=== PATIENT | female | born 1950 | race Caucasian/White ===

== ENCOUNTER → 2017-01-21 | Outpatient (CLI) | payer MEDICARE ==
[2017-01-21 13:45] LABS: Blood Urea Nitrogen 12 mg/dL (7-17); Non-African American GFR(MDRD) >60 (>60 ml/min/1.73 sqM)
--- NOTE | 2017-01-21 14:56 | CT ---
EXAMINATION TYPE: CT abdomen w con DATE OF EXAM: 01/21/2017 2:35 PM COMPARISON: NONE HISTORY: 66-year-old female neoplasm of kidney TECHNIQUE: Contiguous axial scanning of the abdomen following administration of 100 ml Omnipaque 300 IV contrast. Delayed images through the kidneys and coronal/sagittal reconstructions performed. Slow hand injection was performed due to small gauge IV. CT DLP: 970 mGycm Automated exposure control for dose reduction was used. FINDINGS: The heart is normal size without pericardial effusion. There is a moderate-sized hilar hernia. Minima l groundglass changes peripheral right middle lobe probably some interstitial scarring. No pleural ef fusion. No focal liver lesion. The bile duct is dilated up to 1.3 cm, coronal image 36 which shows normal dis can tapering. Additional mild intrahepatic biliary ductal dilatation is noted. Cholecystectomy clips. Adrenal glands, spleen with hilar splenule, and pancreas show no gross abnormality. There is a 1.6 cm hypodense lesion anterior midpole right kidney that shows attenuation of a round 11 -14 Hounsfield units on both the portal venous phase and delayed kidney images Of the visualized upper abdomen, there is scattered mesenteric lymph nodes. The majority are small. S ome are slightly prominent measuring up to 6 mm and are nonspecific, likely reactive/post inflammator y. No dilated small bowel, free fluid, or free air. There is moderate to large stool burden without олег colonic inflammatory change. Bones: Multilevel advanced degenerative changes throughout the lumbar spine. Hypertrophic facet arthr opathy is present with grade 2 retrolisthesis at L1-L2, grade 1 retrolisthesis at L2-L3, grade 1 ante rolisthesis at L4-L5. Additional Baastrup's disease. IMPRESSION: 1. THERE IS A SOLITARY LESION MEASURING 1.6 CM WITHIN THE ANTERIOR MID POLE RIGHT KIDNEY. THIS SHOWS NO SIGNIFICANT CHANGE IN DENSITY BETWEEN THE TWO POSTCONTRAST SERIES WITH A TOTAL ATTENUATION OF 11-1 4 HOUNSFIELD UNITS. FINDINGS ARE MOST COMPATIBLE WITH A SIMPLE CYST. CORRELATE TO CONFIRM THAT THIS C ORRESPONDS TO THE QUESTIONED KIDNEY LESION. 2. MODERATE-SIZED HIATAL HERNIA. 3. ADVANCED DEGENERATIVE CHANGES IN THE LUMBAR SPINE.
== END | disposition home or self-care (01) ==
LOC: RADCTMAIN 12:29
PROVIDERS: ATTEND Family Medicine
DX: N28.9 Disorder of kidney and ureter, unspecified (principal); K44.9 Diaphragmatic hernia without obstruction or gangrene
CPT/HCPCS: 82565; 84520; 74160; 36415; Q9967

== ENCOUNTER → 2017-05-28 | Outpatient (CLI) | payer MEDICARE ==
--- NOTE | 2017-05-28 12:43 | CONS ---
CONSULTATION DATE OF SERVICE: 05/28/2017 A 67-year-old lady who has been evaluated in the [facility] for obstructive sleep apnea-hypopnea syndrome. HISTORY OF PRESENT ILLNESS/SLEEP-WAKE EVALUATION: Patient had been diagnosed with obstructive sleep apnea about 20 years ago. Since that time, she is on treatment with CPAP. I saw this lady the last time in 2008. At that time, she was on CPAP with a pressure of 8 cm of water. She changed her weight down for the years. At the present time, she is trying to continue to use her CPAP but has multiple awakenings from sleep at the present time, even if she is using CPAP and she again developed sleepiness. [place] Sleepiness Scale increased to 12. SLEEP SCHEDULE: Her sleep schedule sometimes irregular, but generally it is on weekdays from 10 pm to 6 am and on the weekend from 11 pm to 6 - 7 am. She does have problem with falling asleep. She has TV set in bedroom. Sleeps on the side and back position. Wakes up from sleep 2 times with nocturia. In the morning, she wakes up tired, has difficulties to pay attention. Worries about her sleep. Has problem with memory, concentration, irritability and anxiety. PAST MEDICAL HISTORY: Positive for depression, acid reflux, swelling of the legs. PAST SURGICAL HISTORY: Cholecystectomy, surgery for broken wrist, UPPP, breast biopsy x2, tonsillectomy in childhood. MEDICATIONS: Celexa, [place], Lasix, omeprazole, calcium supplement, multivitamins. REVIEW OF SYSTEMS: Multiple awakenings from sleep, sleepiness during the day, as well as episodes of swelling of the legs. SOCIAL HISTORY: Negative for smoking or using alcohol. FAMILY HISTORY: Hypertension, angina, heart problems, arthritis, sinus problems, sleep apnea, headaches, mental illness, diabetes, acid reflux. PHYSICAL EXAM: A 67-year-old lady without distress. BP 149/76, HR 58, RR 16, height 5, 2, weight 221, BMI of 40.4, neck 14.5 inches in circumference, temperature 92.8. Oxygen saturation at room air 95%. OROPHARYNX: No uvula, extremely low position of soft palate, wide pillars. ABDOMEN: Obese. Neck Supple, no JVD. Thyroid is not palpable. LUNGS Clear to percussion and to auscultation. Good air exchange. No wheezing or rhonchi. HEART S1, S2 regular. No murmurs, gallops, or rubs. EXTREMITIES No clubbing or cyanosis. 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 Cranial nerves 2 to 7 intact. There is no fasciculation or atrophy. noted. No focal deficits observed. IMPRESSION: 1. Obstructive sleep apnea-hypopnea syndrome diagnosed about 20 years ago. Last diagnostic sleep study at that time. Patient continued to use her CPAP equipment, but even while using CPAP wakes up from sleep and has sleepiness during the day. [place] Sleepiness Scale increased to 12. Low position of soft palate. 2. Obesity, body mass index 40.4. 3. Increasing blood pressure in the office today. 4. Depression. 5. Acid reflux. 6. History of periodic limb movements by results of previous sleep study. 7. Status post UPPP. 8. Status post tonsillectomy. 9. History of sinusitis. 10.History of headaches. 11.Episodes of swelling of legs. PLAN: 1. The patient will have treatment with positive air pressure equipment and should use it every night for the whole night. 2. Losing weight. 3. Sleep hygiene with regular time in bed for at least 8 hours. 4. No driving if feeling any sleepiness. Patient is aware about civil and criminal liability for unsafe driving. 5. I will see the patient for follow up visit to explain the results of the test, recommendations, check compliance with treatment and make any necessary adjustment related to mask fitting, pressure and humidification. Thank you very much for referring this patient for evaluation. Sincerely, Jose Hoffmann MD, PhD, FAASM Diplomat of [place] [employer] [employer] Cash Surrender Calculator of [facility] [place] MMODL / MAIK: [id number] /
== END | disposition home or self-care (01) ==
LOC: SLEEP 10:52
PROVIDERS: ATTEND Internal Medicine
DX: G47.33 Obstructive sleep apnea (adult) (pediatric) (principal); E66.9 Obesity, unspecified; F32.9 Major depressive disorder, single episode, unspecified; K21.9 Gastro-esophageal reflux disease without esophagitis; Z68.41 Body mass index [BMI] 40.0-44.9, adult
CPT/HCPCS: 99211

== ENCOUNTER → 2017-12-03 | Outpatient (CLI) | payer MEDICARE ==
--- NOTE | 2017-12-03 15:04 | SFUN ---
SLEEP STUDY FOLLOW UP NOTE DATE OF SERVICE: 12/03/2017 A 67-year-old lady who has been followed in the Sleep Center for treatment of severe obstructive sleep apnea-hypopnea syndrome. Recently patient had diagnostic sleep study and CPAP titration and I discussed results of sleep studies with patient in details. Diagnostic sleep study showed severe sleep apnea. Subsequently, patient was started on treatment with CPAP. I checked patient's CPAP unit. Usage is 100% of the time, more than 4 hours, average usage is 7.1 hours. CPAP pressure 10 cm of water. Leak is 28 L/minute. Apnea-hypopnea index 7.5, practically not any abnormal central apnea events. The [place] Sleepiness Scale today is 9. MEDICATIONS: Celexa, [place], Lasix, omeprazole, calcium supplement, vitamin D, other vitamin supplements. PHYSICAL EXAM: lady without distress. BP 152/72, HR 62, RR 16, weight 207, she lost about 14 pounds since the sleep study done, temperature 99.4, oxygen saturation on room air 96%. OROPHARYNX: Extremely low position of soft palate. ABDOMEN: Slightly obese. Neck Supple, no JVD. Thyroid is not palpable. LUNGS Clear to percussion and to auscultation. Good air exchange. No wheezing or rhonchi. HEART S1, S2 regular. No murmurs, gallops, or rubs. EXTREMITIES No clubbing or cyanosis. 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 Cranial nerves 2 to 7 intact. There is no fasciculation or atrophy. noted. No focal deficits observed. IMPRESSION: 1. Severe obstructive sleep apnea-hypopnea syndrome; apnea-hypopnea index 45.4 with oxygen desaturation of 63.8%. Patient demonstrated 100% compliance with treatment, benefitting from treatment. 2. Obesity. 3. Depression. 4. History of acid reflux. 5. Increasing blood pressure in the office. 6. Status post UPPP and tonsillectomy. 7. History of sinusitis. 8. Episodes of swelling of the legs. PLAN: 1. Patient will continue to use CPAP equipment every night for the whole night. 2. I will increase pressure to 11 cm of water. 3. Continue losing weight. 4. Sleep hygiene with regular time in bed for at least 8 hours. 5. No driving if feeling any sleepiness. Thank you very much for allowing me to participate in the management of your patient. Sincerely, Jose Hoffmann MD, PhD, FAASM Diplomat of [place] [employer] [place] [employer] Fiber Picker of [facility] [place] MMSHRUTI / MAIK: [id number] /
== END | disposition home or self-care (01) ==
LOC: SLEEP 13:04
PROVIDERS: ATTEND Internal Medicine
DX: G47.33 Obstructive sleep apnea (adult) (pediatric) (principal); E66.9 Obesity, unspecified; I10 Essential (primary) hypertension; R22.43 Localized swelling, mass and lump, lower limb, bilateral; F32.9 Major depressive disorder, single episode, unspecified; Z99.89 Dependence on other enabling machines and devices; Z79.899 Other long term (current) drug therapy; Z79.891 Long term (current) use of opiate analgesic; Z87.19 Personal history of other diseases of the digestive system; Z98.890 Other specified postprocedural states; Z87.09 Personal history of other diseases of the respiratory system

== ENCOUNTER → 2018-02-02 | Outpatient (CLI) | payer MEDICARE ==
--- NOTE | 2018-02-02 14:52 | BD ---
EXAMINATION TYPE: Axial Bone Density DATE OF EXAM: 02/02/2018 COMPARISON: NONE CLINICAL HISTORY: Height: 5 FT 1 1/4 IN Weight: 209 FRAX RISK QUESTIONS: History of Fracture in Adulthood: YES RISK FACTORS HISTORY OF: History of Wrist Fracture: LT WRIST When: 10-12 YEARS AGO Surgery to Spine/Hip(right/left)/Wrist (right/left): LT WRIST When: 10-12 YEARS AGO Active: MODERATELY Postmenopausal woman: AGE 53 Lost more than 2 inches in height since high school: YES MEDICATIONS: Additional Medications: CELEXA, OMEPRAZOLE, NAPROXEN, Additional History: EXAM MEASUREMENTS: Bone mineral densitometry was performed using the [employer] System. Bone mineral density as measured about the Lumbar spine is: ----- L1-L4(G/cm2): 1.291 T Score Values are as follows: ----- L2: 1.4 ----- L3: 0.1 ----- L4: -0.4 ----- L1-L4: 0.9 Bone mineral density has: INCREASED 0.8 % since study of: 2001 Bone mineral density about the R hip (g/cm2): 0.762 Bone mineral density about the L hip (g/cm2): 0.780 T Score values are as follows: -----R Neck: -2.0 -----L Neck: -1.9 -----R Total: -1.6 -----L Total: -1.6 Bone mineral density has: DECREASED -11.9 % since study of: 2001 IMPRESSION: Osteopenia (T Score between -2.5 and -1). There is slightly increased risk of fracture and the patient may be considered for treatment. Re-Screen 2-5 years. NOTE: T-SCORE=SD OF THE YOUNG ADULT MEAN.
--- NOTE | 2018-02-03 13:47 | MM ---
Reason for exam: screening (asymptomatic). Last mammogram was performed 1 year and 8 months ago. History: Patient is postmenopausal. Benign excisional biopsy of the left breast. Physical Findings: A clinical breast exam by your physician is recommended on an annual basis and results should be correlated with mammographic findings. MG 3D Screening Mammo W/Cad Bilateral CC and MLO view(s) were taken. Prior study comparison: June 18, 2016, bilateral MG 3d screening mammo w/cad. April 14, 2013, bilateral digital screening mammo w/CAD. The breast tissue is heterogeneously dense. This may lower the sensitivity of mammography. No significant changes when compared with prior studies. ASSESSMENT: Benign, BI-RAD 2 RECOMMENDATION: Routine screening mammogram of both breasts in 1 year.
== END | disposition home or self-care (01) ==
LOC: RADBDWWP 07:55
PROVIDERS: ATTEND Family Medicine
DX: M85.80 Other specified disorders of bone density and structure, unspecified site (principal)
CPT/HCPCS: 77063; 77067; 77080

== ENCOUNTER 2018-04-15 09:50 | Day surgery (SDC) | payer MEDICARE ==
[2018-04-12 14:50] VITALS: BMI 36.6
[~2018-04-15 09:50] MED LIST: LACTATED RINGERS 1,000 ML IV SCH
[2018-04-15 11:29] VITALS: TEMP 99.2
[2018-04-15] MEDS ORDERED: LIDOCAINE 1% 20 ML VIAL (10MG/ML) FOR IV START INTRADERMA ONE (11:39)
[2018-04-15] MEDS ORDERED: LIDOCAINE 1% INJ 10MG/ML (20 ML MDV) ONE (12:09)
[2018-04-15] MEDS ORDERED: PROPOFOL 10 MG/ML 20 ML VIAL IV ONE (12:09)
--- NOTE | 2018-04-15 12:34 | P.PCN ---
Date of Procedure: 04/15/18 Procedure(s) Performed: Brief history: Patient is a pleasant 68-year-old white female, scheduled for an elective upper endoscopy as well as colonoscopy as a part of evaluation of surveillance of Sosa's esophagus and history of colon polyps. Procedure performed: Esophagogastroduodenoscopy with biopsy Colonoscopy Preoperative diagnosis: GERD//Sosa's esophagus history of colon polyps [place] [facility] [place]: After informed consent was obtained from the patient was brought into the endoscopy unit and IV sedation was administered by anesthesia under continuous monitoring. Initially upper endoscopy was done. The Olympus GF 160 video endoscope was inserted inserted into the mouth and esophagus intubated without any difficulty and was gradually advanced into the stomach and duodenum and carefully examined. The bulb and second part of the duodenum appeared normal. The scope was then withdrawn into the stomach adequately insufflated with air and upon careful examination the antrum and body, cardia and fundus appeared normal. The scope was then withdrawn into the esophagus. Moderate size hiatal hernia noted. The GE junction was located at 35 cm to the incisors. There was long segment of Sosa's esophagus extending from 32-35 cm from incisors and multiple biopsies were done from this area. Rest of the esophagus appeared normal. Patient tolerated the procedure well. At this time the patient continued to remain sedation. Initial digital rectal examination was normal. Olympus CF 160 video colonoscope was then inserted into the rectum and gradually advanced to the cecum without any difficulty. Careful examination was performed as the scope was gradually being withdrawn. The prep was excellent. The cecum, ascending colon, transverse colon, descending colon, sigmoid colon and rectum appeared normal. Retroflexion was performed in the rectum and no lesions were noted. Patient tolerated the procedure well. Impression: 1. Upper endoscopy revealed moderate size hiatal hernia and Sosa's esophagus 2. Colonoscopy was within normal limits with no evidence of colitis or colorectal neoplasia. Recommendations: Findings of this examination were discussed with the patient as well as a family. She was advised to follow with the biopsy results. If the biopsy shows a no evidence of dysplasia, she can have a repeat upper endoscopy in 2 years. She can have a repeat colonoscopy in 5 years.
[2018-04-15 12:57] VITALS: BP 184/79
[2018-04-15 13:19] VITALS: PULSE 45; RESP 14
== END 2018-04-15 13:43 | disposition home or self-care (01) ==
LOC: ORWHC2ENDO 09:50
PROVIDERS: ATTEND Internal Medicine Gastroenterology
DX: Z12.11 Encounter for screening for malignant neoplasm of colon (principal); K22.70 Barrett's esophagus without dysplasia; K21.9 Gastro-esophageal reflux disease without esophagitis; K44.9 Diaphragmatic hernia without obstruction or gangrene; G47.33 Obstructive sleep apnea (adult) (pediatric); Z79.82 Long term (current) use of aspirin; Z79.891 Long term (current) use of opiate analgesic; Z79.899 Other long term (current) drug therapy; Z79.1 Long term (current) use of non-steroidal anti-inflammatories (NSAID); Z86.010 Personal history of colon polyps
CPT/HCPCS: 88305; 43239; J2001; J2704; G0105; 45378

== ENCOUNTER → 2018-04-20 | Outpatient (CLI) | payer MEDICARE ==
--- NOTE | 2018-04-20 08:21 | MR ---
EXAMINATION TYPE: MR lumbar spine wo con DATE OF EXAM: 04/20/2018 COMPARISON: CT abdomen January 21, 2017. HISTORY: Low back pain per order. Back pain for 2 months into left lower extremity per patient. TECHNIQUE: Multiplanar, multisequence imaging of the lumbar spine is performed without IV contrast. FINDINGS: Sagittal images of the lumbar spine show vertebral body heights to remain satisfactory. The re is subtle grade 1 retrolisthesis of T12 on L1 with more prominent retrolisthesis of L1 on L2 and L 2 on L3. There is subtle retrolisthesis L3 on L4 and anterolisthesis L4 on L5. Multilevel disc desicc ation is present. There is moderate disc space narrowing T12-L1 level. There is advanced disc space narrowing L1-L2 and L2-L3 levels. There is mild disk space narrowing at L5-S1 level. Vacuum disc phen omenon L5-S1 level is present. The conus medullaris is normal in position and signal ending at mid L1 level. There is heterogeneous Modic type III degenerative change centered anterior T12-L1 level with diminished T1 and T2 signal. Mild to moderate multilevel anterior spurring upper lumbar spine is red emonstrated. Axial images at the T12-L1 level shows mild broad disc bulge with right foraminal/lateral disc protru awilda component on axial image 28. There is effacement of the anterolateral thecal sac. There is mild right-sided neural foraminal narrowing. Left-sided neural foramen is patent. Axial images at the L1-L2 level show spondylolisthesis and broad disc bulge mildly effacing anterior thecal sac. Bilateral neural foramina show mild to moderate narrowing. Axial images at L2-L3 level show spondylolisthesis and broad disc bulge effacing anterior thecal sac. There is mild facet arthropathy that is present bilaterally. Moderate to severe bilateral neural for aminal narrowing is present at this level. Axial images at L3-L4 level show mild to moderate facet degenerative changes bilaterally. Spinal milton l is preserved. Bilateral neural foramina show mild narrowing. Axial images at L4-L5 level show spondylolisthesis and moderate bilateral facet arthropathy, spinal c anal is preserved. Bilateral neural foramina are patent. Axial images at L5-S1 level show moderate to advanced facet degenerative changes bilaterally. Spinal canal is preserved. Bilateral neural foramina are patent. There is 1.2 cm round T2 hyperintense lesion anteriorly right kidney axial image 44 consistent with s imple cyst redemonstrated. IMPRESSION: Multilevel spondylolisthesis and degenerative change most prominent in the upper lumbar l evels as detailed above.
== END | disposition home or self-care (01) ==
LOC: RADMRIMAIN 06:17
PROVIDERS: ATTEND Physician Assistant
DX: M43.16 Spondylolisthesis, lumbar region (principal); M47.816 Spondylosis without myelopathy or radiculopathy, lumbar region
CPT/HCPCS: 72148

== ENCOUNTER → 2019-02-10 | Outpatient (CLI) | payer MEDICARE ==
--- NOTE | 2019-02-10 15:54 | SFUN ---
SLEEP CENTER FOLLOW UP NOTE DATE OF SERVICE: 02/10/2019 A 68-year-old lady who has been followed in the Sleep Center for treatment of obstructive sleep apnea-hypopnea syndrome. Patient successfully continued to use her CPAP equipment every night for the whole night. Does not have any significant complaint or sleep problem. For the last year patient was started on treatment additionally with lisinopril for the hypertension. Patient increased her weight from about 207 pounds during the last visit to 244 pounds during this visit. I checked her CPAP unit, CPAP pressure at 11 cm of water. Usage is 100% of nights, more than 4 hours. Average usage is 6.9 hours, which is normal amount. Leak 20 L/minute, which is borderline. Apnea-hypopnea index 7.1, which is minimally increased above the standards. Because patient has severe obstructive sleep apnea during diagnostic sleep study, apnea-hypopnea index was 45.4. [place] Sleepiness Scale today is 10, which is borderline. MEDICATIONS: Lisinopril, Celexa, [place], Lasix, omeprazole, vitamin D, calcium supplement, vitamin supplement. PHYSICAL EXAM: Patient in no distress. BP 153/76, HR 64, RR 16, height 5 foot 2 inches, weight 244 pounds, temperature 98.7, oxygen saturation at room air 94%. OROPHARYNX: Extremely low position of soft palate. Mallampati 4. ABDOMEN: Obese. Neck Supple, no JVD. Thyroid is not palpable. LUNGS Clear to percussion and to auscultation. Good air exchange. No wheezing or rhonchi. HEART S1, S2 regular. No murmurs, gallops, or rubs. EXTREMITIES No clubbing or cyanosis. 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 Cranial nerves 2 to 7 intact. There is no fasciculation or atrophy. noted. No focal deficits observed. IMPRESSION: 1. Severe obstructive sleep apnea-hypopnea syndrome; apnea-hypopnea index 45.4 with oxygen desaturation to 63.8%. Patient demonstrated 100% compliance with treatment, benefitting from treatment. 2. Patient increased her weight 37 pounds since previous visit. Apnea-hypopnea index from the machine 7.1. 3. Obesity. 4. Depression. 5. History of acid reflux. 6. Hypertension. 7. Status post UPP and tonsillectomy. 8. History of sinusitis. 9. Episodes of swelling of legs. PLAN: 1. I will increase pressure in the machine. I will put machine in automatic regimen with the highest pressure of 14 cm of water. 2. Patient will continue to use CPAP equipment every night. 3. Losing weight. 4. Sleep hygiene with regular time in bed for at least 8 hours. 5. Low-sodium diet. 6. No driving if feeling sleepiness. 7. Prescription for all necessary CPAP supplies including mask, tube, filters. Thank you very much for allowing me to participate in the management of your patient. Sincerely, Jose Hoffmann MD, PhD, FAASM Diplomat of [place] [employer] [place] [employer] Map Mounter of [facility] [place] MMODL / IJN: [id number] /
== END | disposition home or self-care (01) ==
LOC: SLEEP 14:30
PROVIDERS: ATTEND Internal Medicine
DX: G47.33 Obstructive sleep apnea (adult) (pediatric) (principal); I10 Essential (primary) hypertension; E66.9 Obesity, unspecified; F32.9 Major depressive disorder, single episode, unspecified; K21.9 Gastro-esophageal reflux disease without esophagitis; M79.89 Other specified soft tissue disorders; Z98.890 Other specified postprocedural states; Z90.89 Acquired absence of other organs; Z99.89 Dependence on other enabling machines and devices; Z87.09 Personal history of other diseases of the respiratory system; Z79.899 Other long term (current) drug therapy

== ENCOUNTER → 2019-03-10 | Outpatient (CLI) | payer MEDICARE ==
--- NOTE | 2019-03-14 09:18 | MM ---
Reason for exam: screening (asymptomatic). Last mammogram was performed 1 year and 1 month ago. History: Patient is postmenopausal. Benign excisional biopsy of the left breast. Physical Findings: A clinical breast exam by your physician is recommended on an annual basis and results should be correlated with mammographic findings. MG 3D Screening Mammo W/Cad Bilateral CC and MLO view(s) were taken. Prior study comparison: February 02, 2018, bilateral MG 3d screening mammo w/cad. June 18, 2016, bilateral MG 3d screening mammo w/cad. The breast tissue is heterogeneously dense. This may lower the sensitivity of mammography. No significant changes when compared with prior studies. ASSESSMENT: Negative, BI-RAD 1 RECOMMENDATION: Routine screening mammogram of both breasts in 1 year.
== END | disposition home or self-care (01) ==
LOC: RADMAMWWP 09:02
PROVIDERS: ATTEND Family Medicine
DX: Z12.31 Encounter for screening mammogram for malignant neoplasm of breast (principal)
CPT/HCPCS: 77063; 77067

== ENCOUNTER → 2019-08-02 | Outpatient (CLI) | payer MEDICARE ==
[2019-08-02 09:35] LABS: ALT 16 U/L (9-52); AST 23 U/L (14-36); African American GFR (CKD) >90 (>60 ml/min/1.73 sqM); Albumin 4.2 g/dL (3.5-5.0); Alkaline Phosphatase 77 U/L (38-126); Anion Gap 8 mmol/L; Blood Urea Nitrogen 15 mg/dL (7-17); Calcium 9.7 mg/dL (8.4-10.2); Carbon Dioxide 27 mmol/L (22-30); Chloride 99 mmol/L (98-107); Glucose 105 mg/dL (74-99); Non-African American GFR(CKD) >90 (>60 ml/min/1.73 sqM); Sodium 134 mmol/L (137-145); Total Bilirubin 0.4 mg/dL (0.2-1.3); Total Protein 7.1 g/dL (6.3-8.2)
[2019-08-02 09:40] LABS: HCT 35.7 % (34.0-46.0); HGB 12.2 gm/dL (11.4-16.0); MCH 28.3 pg (25.0-35.0); MCV 83.3 fL (80.0-100.0); Mean Platelet Volume 5.8; Platelet Count 318 k/uL (150-450); RBC 4.29 m/uL (3.80-5.40); RDW 13.6 % (11.5-15.5); WBC 4.9 k/uL (3.8-10.6)
[2019-08-02 10:14] LABS: Lymphocytes # (M) 1.47 k/uL (1.0-4.8); Monocytes # (M) 0.25 k/uL (0-1.0); Neutrophils # (M) 3.19 k/uL (1.3-7.7); Neutrophils % (M) 65 %; Nucleated Red Blood Cells 0 /100 WBC (0-0); Total Cells Counted 100
--- NOTE | 2019-08-04 08:42 | MR ---
EXAMINATION TYPE: MR MRCP DATE OF EXAM: 08/02/2019 COMPARISON: Outside abdominal ultrasound July 07, 2019. CT abdomen January 21, 2017. Older abdominal u ltrasound June 19, 2011 HISTORY: Common Bile Duct dilation, abnormal outside ultrasound Standard multiplanar, multisequence MRI departmental protocol Multiplanar, multisequence images of the abdomen were acquired. Thin and thick slice MRCP performed o n MRI scanner. FINDINGS: Liver/gallbladder/pancreas/biliary system: Pancreas is normal in size. Pancreatic duct is seen but no t suspiciously dilated. No surrounding inflammatory change or fluid collection. Gallbladder is surgic ally absent. Liver is normal in size, mild diffuse signal dropout on in and out of phase images consi stent with mild diffuse fatty infiltration corresponds to slightly hyperechoic appearance of liver on ultrasound. There is confirmation of mild to moderate central intrahepatic and extra hepatic biliary dilatation measuring up to 16 mm image 42 series 701 near krissy hepatis with persistent dilatation b ut slight tapering towards the ampulla where there is then abrupt tapering noted seen best image 15 s eries 201. No obstructing stone or obvious ampullary mass identified on MRI. There is definitive prog ression of biliary dilatation from 2011 ultrasound, degree of dilatation is not significantly progres sed from the 2017 CT in retrospect. Other: There is stable moderate size hiatal hernia with some twisting redemonstrated. Spleen and both adrenal glands remain normal in size. Persistent simple appearing 1.2 cm cyst anteriorly upper pole of the right kidney. No suspicious small or large bowel dilatation. Multilevel spurring and slight sc oliotic curvature in the spine. No abdominal ascites or suspicious adenopathy. IMPRESSION: Confirmation of fairly moderate central intrahepatic and extra hepatic biliary dilatation without pancreatic ductal dilatation. No obvious mass or distal CBD stone on MRI. Findings however a re concerning as they are new from 2011 ultrasound and distal CBD stricture or obstructing mass has t o be suspected. Further investigation with ERCP should be considered.
== END | disposition home or self-care (01) ==
LOC: RADMRIMAIN 07:59
PROVIDERS: ATTEND Internal Medicine Gastroenterology
DX: K83.8 Other specified diseases of biliary tract (principal); R93.89 Abnormal findings on diagnostic imaging of other specified body structures
CPT/HCPCS: 74181; 80053; 85025

== ENCOUNTER → 2019-09-05 | Outpatient (CLI) | payer MEDICARE ==
[2019-09-05 12:10] LABS: ALT 45 U/L (4-34); AST 94 U/L (14-36); African American GFR (CKD) >90 (>60 ml/min/1.73 sqM); Albumin 4.1 g/dL (3.5-5.0); Alkaline Phosphatase 92 U/L (38-126); Anion Gap 8 mmol/L; Blood Urea Nitrogen 14 mg/dL (7-17); Calcium 9.7 mg/dL (8.4-10.2); Carbon Dioxide 25 mmol/L (22-30); Chloride 101 mmol/L (98-107); Glucose 90 mg/dL (74-99); Non-African American GFR(CKD) >90 (>60 ml/min/1.73 sqM); Sodium 134 mmol/L (137-145); Total Bilirubin 0.5 mg/dL (0.2-1.3); Total Protein 6.7 g/dL (6.3-8.2)
[2019-09-05 12:12] LABS: Appearance,Urine Clear (Clear); Bilirubin,Urine Negative (Negative); Blood,Urine Negative (Negative); Color,Urine Light Yellow; Glucose,Urine (UA) Negative (Negative); Hyaline Casts,Urine 1 /lpf (0-2); Ketones,Urine Negative (Negative); Leukocyte Esterase,Urine Moderate (Negative); Mucus,Urine Rare /hpf; Nitrite,Urine Negative (Negative); PH, Urine 5.5 (5.0-8.0); Protein,Urine Negative (Negative); RBC,Urine 2 /hpf (0-5); Squamous Epithelial Cell,Urine <1 /hpf (0-4); Urobilinogen,Urine <2.0 mg/dL (<2.0); WBC,Urine 7 /hpf (0-5)
[2019-09-05 12:15] LABS: HCT 35.1 % (34.0-46.0); HGB 11.5 gm/dL (11.4-16.0); MCH 28.5 pg (25.0-35.0); MCHC 32.7 g/dL (31.0-37.0); Mean Platelet Volume 6.6; Platelet Count 311 k/uL (150-450); RBC 4.04 m/uL (3.80-5.40); RDW 14.2 % (11.5-15.5); WBC 4.8 k/uL (3.8-10.6)
[2019-09-05 12:16] LABS: INR 0.9 (<1.2); Partial Thromboplastin Time 22.2 sec (22.0-30.0); Prothrombin Time 9.6 sec (9.0-12.0)
== END | disposition home or self-care (01) ==
LOC: LABPAT 10:36
PROVIDERS: ATTEND Orthopaedic Surgery
DX: Z01.812 Encounter for preprocedural laboratory examination (principal); Z01.818 Encounter for other preprocedural examination; M16.12 Unilateral primary osteoarthritis, left hip; Z79.01 Long term (current) use of anticoagulants
CPT/HCPCS: 36415; 80053; 81001; 85027; 85610; 85730; 87070

== ENCOUNTER 2019-09-13 07:30 | Inpatient (IN) | payer MEDICARE ==
[2019-09-02 13:01] VITALS: BMI 42.0
[~2019-09-13 07:30] MED LIST changes: +ACETAMINOPHEN TAB 500 MG TAB PO ONE; +DEXAMETHASONE SOD PHOSPHATE 10 MG/ML 1 ML VIAL IV ONE; +GABAPENTIN 300 MG CAP PO ONE; +HYDROmorphone 0.5 MG/0.5 ML SYRINGE IVP PRN; -LACTATED RINGERS 1,000 ML IV SCH; +LIDOCAINE 1% 20 ML VIAL (10MG/ML) FOR IV START INTRADERMA PRN; +MELOXICAM 7.5 MG TAB PO ONE; +TRANEXAMIC ACID 1,000 MG in SODIUM CHLORIDE 0.9% 100 ML IVPB ONE; +fentaNYL (PF) 50 MCG/ML 2 ML AMP IV PRN
[2019-09-13] MEDS: ROPIVACAINE 246.25 MG, EPINEPHrine 0.5 MG, KETOROLAC 30 MG, cloNIDine HCL/PF 80 MCG, WA... MISCELLANE ONE ×10 (11:06→11:56)
[2019-09-13] MEDS ORDERED: NALOXONE 0.4 MG/ML 1 ML VIAL IV PRN (11:08)
[2019-09-13] MEDS ORDERED: ONDANSETRON 4 MG/2 ML VIAL IVP PRN (11:08)
[2019-09-13] MEDS ORDERED: HYDROmorphone 0.5 MG/0.5 ML SYRINGE IVP PRN ×3 (11:08)
[2019-09-13] MEDS ORDERED: hydrOXYzine PAMOATE 25 MG CAP PO PRN (11:08)
[2019-09-13] MEDS ORDERED: HYDROcodone/APAP 5-325MG 1 EACH TAB PO PRN (11:08)
[2019-09-13] MEDS ORDERED: MAGNESIUM HYDROXIDE 2,400 MG/10 ML CUP PO PRN (11:08)
[2019-09-13] MEDS: LACTATED RINGERS 1,000 ML IV SCH (11:23)
[2019-09-13] MEDS: ONDANSETRON 4 MG/2 ML VIAL IVP ONE ×2 (11:23→15:07)
[2019-09-13] MEDS ORDERED: SODIUM CHLORIDE 0.9% IRRIG 1,000 ML BTL IRRIGATION ONE (11:24)
[2019-09-13] MEDS ORDERED: ePHEDrine SULFATE/0.9% NACL/PF 50 MG/5 ML SYRINGE IV ONE (11:24)
[2019-09-13] MEDS ORDERED: TRANEXAMIC ACID 1,000 MG/10 ML VIAL ONE (11:24)
[2019-09-13] MEDS ORDERED: fentaNYL (PF) 50 MCG/ML 2 ML AMP ONE (11:24)
[2019-09-13] MEDS ORDERED: PROPOFOL 10 MG/ML 20 ML VIAL IV ONE (11:24)
[2019-09-13] MEDS ORDERED: HEPARIN SODIUM,PORCINE 10,000 UNIT/ML 1 ML VIAL ONE (11:24)
[2019-09-13] MEDS ORDERED: MIDAZOLAM 2 MG/2 ML VIAL ONE (11:24)
[2019-09-13] MEDS ORDERED: SODIUM CHLORIDE 0.9% 100 ML BAG ONE (11:24)
[2019-09-13] MEDS ORDERED: ceFAZolin 3,000 MG in SODIUM CHLORIDE 0.9% IRRIGATIO 3,000 ML IRRIGATION ONE (11:27)
--- NOTE | 2019-09-13 12:49 | FL ---
EXAMINATION TYPE: FL guidance operating room DATE OF EXAM: 09/13/2019 HISTORY: Flouroscopy time 48 seconds of fluoroscopy provided. IMPRESSION: 1. Fluoroscopy time.
--- NOTE | 2019-09-13 12:53 | P.OP ---
Date of Procedure: 09/13/19 Preoperative Diagnosis: Severe osteoarthritis left hip Postoperative Diagnosis: Severe osteoarthritis left hip Procedure(s) Performed: Left total hip arthroplasty with a direct anterior approach Implants: Ferreira and nephew Polarstem size 2 standard Ferreira [employer] Nephew R3, 3 hole acetabular shell, 48 mm Ferreira [employer] Nephew reflection 6.5 mm cancellus screw, 20 mm 2 Ferreira [employer] Nephew R3, XLPE 20 acetabular liner Ferreira & Nephew Oxinium femoral head 32 m, +0 All components were press-fit. The articulation is Oxinium on polyethylene. Anesthesia: spinal Surgeon: Keith Vega Apron Man #1: Yolanda Ram Estimated Blood Loss (ml): 200 (62 mL returned with Cell Saver) Pathology: other (Femoral head) Condition: stable Disposition: PACU Indications for Procedure: After failure of conservative treatment we discussed the surgical and nonsurgical treatment options at length. Patient wishes to proceed with a total hip arthroplasty with a direct anterior approach. Complications specific to this procedure were discussed at length, including but not limited to infection, leg length discrepancy, dislocation, and nerve injury. Patient is aware of all these complications and informed consent was obtained Operative Findings: The operative findings are consistent with severe osteoarthritis of the left hip Description of Procedure: Patient was seen and evaluated in the preoperative area, consent was reviewed, and the surgical site was marked with a skin marker. Patient was then brought to the operating room and given prophylactic antibiotics intravenously. 1 g of Tranexamic acid was also given. A spinal anesthetic was administered by the anesthesia department. The patient was then placed on the Easton table with the bony prominences well-padded. The hip area was then prepped and draped in usual sterile fashion. A universal timeout was then performed, which confirmed the patient's name, surgical site, ALLERGIES, and procedure being performed. Next the incision site was located at 1 cm distal and 1 cm lateral to the anterior superior iliac spine. The skin and subcutaneous tissues were sharply incised. Incision was carefully dissected down to the fascia overlying the tensor fascia jonathan muscle. This fascia was then incised in line with the incision. Next, using blunt finger dissection, the tensor fascia jonathan muscle was dissected off its investing fascia. The muscle was then carefully retracted laterally with a cobra retractor over the lateral neck of the femur. Next, the circumflex vessels were identified and cauterized using the AquaMantis device. The anterior hip capsule was then exposed. The capsule was then opened and an inverted T fashion. Cobra retractors were then placed intracapsularly. The proximal femur was then visu alized. The femoral neck was then osteotomized appropriate level above the lesser trochanter. Small amount of traction was placed with the Easton table. A small wedge of bone was then removed from the remaining femoral head. Next, using a corkscrew femoral head was easily removed from the acetabulum. On gross visual inspection, the femoral head had complete loss of articular cartilage in multip le periarticular osteophytes. Attention was then turned to the acetabulum. the acetabulum was exposed and any remaining labrum was excised. Sequential reaming of the acetabulum was performed using fluoroscopic guidance. When the appropriate size was reached, a trial was then placed. The position and fit of the trial was checked with fluoroscopy. The trial was then removed. Then, using fluoroscopic guidance, the final implant was impacted at 20 of anteversion and 40 of abduction, and fully seated in the acetabulum. 2 screws were then placed in the acetabulum. Again fluoroscopy was used to check position of the screws. Next, the liner was then impacted, with a 20 elevated liner located in the anterior superior quadrant. Component locking was confirmed. Attention was then directed to the femur. With the aid of the Easton table, the femur was externally rotated to approximately 130, extended, and abducted under the opposite leg. A side hook was then placed under the proximal femur, and the side hook elevator was used to elevate the proximal femur. Retractors were then placed. A capsular release was performed, as well as a release of the conjoined tendon, which afforded excellent visualization of the proximal femur. Next, a box osteotome was used to lateralize the proximal femur. A burr bench hand was then used to locate the femoral canal. Sequential broaching was then performed with appropriate size which afforded excellent fixation in the proximal femur. A trial was then placed with appropriate head and neck, and the hip was gently reduced with the aid of the Easton table. Fluoroscopy was then used to check position of the components, as well as to ensure equal leg lengths. The hip was then gently dislocated and the trials were then removed. Final implants were then impacted and the hip was again reduced. Final fluoroscopic x-rays confirmed that the components were in anatomic position, as well as equal leg lengths. The hip was also taken through range of motion, and found to be stable. The hip was then copiously irrigated with antibiotic solution with pulsatile lavage. The hip was then irrigated with Irrisept solution. The soft tissues were then injected with a ropivacaine solution, which consisted of 246.25 mg of ropivacaine, 0.5 mg of epinephrine, 30 mg of Toradol, 80 g of clonidine, and 48.45 mL of sterile water, for a total of 100 mL of fluid injected. A second dose of 1 g of Tranexamic acid was also given. the fascia was then closed with 2-0 strata fix suture. The subcutaneous tissue was closed with 3-0 Vicryl. The subcuticular tissue was closed with 3-0 strata fix suture. The skin was then closed with Dermabond glue and a sterile silver dressing. The patient was then transferred to the recovery room in stable condition. The administrative sales assistant MICHAEL Wagoner was required due to the complexity of surgery, and the need for skilled surgical device sales representative for positioning, draping, exposure, retraction, and closure of the wound.
[2019-09-13] MEDS ORDERED: FAMOTIDINE 20 MG/2 ML VIAL IVP ONE (13:16)
--- NOTE | 2019-09-13 13:22 | XR ---
EXAMINATION TYPE: XR Hip Limited LT DATE OF EXAM: 09/13/2019 CLINICAL HISTORY: Left hip pain and osteoarthritis. TECHNIQUE: Single AP portable view of left hip is obtained immediately postoperatively. COMPARISON: None. FINDINGS: Metallic hardware from left hip arthroplasty is seen and appears satisfactory in alignment and position. There is evidence of recent surgery with subcutaneous gas noted laterally. IMPRESSION: Metallic hardware from left hip arthroplasty is satisfactory in position.
[2019-09-13] MEDS ORDERED: METOCLOPRAMIDE 5 MG/ML 2 ML VIAL IVP ONE (15:13)
[2019-09-13] MEDS: HYDROcodone/APAP 5-325MG 1 EACH TAB PO PRN ×2 (15:54→21:15)
[2019-09-13] MEDS: SODIUM CHLORIDE 0.9% 1,000 ML IV SCH (17:34)
[2019-09-13] MEDS ORDERED: LORazepam 1 MG TAB PO PRN (19:49)
[2019-09-13] MEDS: SENNOSIDES-DOCUSATE SODIUM 1 EACH TAB PO SCH (20:10)
[2019-09-13] MEDS: ASPIRIN 325 MG TAB PO SCH (20:10)
[2019-09-13] MEDS: CITALOPRAM HYDROBROMIDE 20 MG TAB PO SCH (20:10)
[2019-09-13] MEDS: PANTOPRAZOLE 40 MG TABLET PO SCH (20:10)
[2019-09-13] MEDS: CALCIUM CARBONATE 500 MG CHEWABLE PO PRN (21:20)
[2019-09-14] MEDS: SODIUM CHLORIDE 0.9% 1,000 ML IV SCH ×2 (02:41→17:10)
[2019-09-14] MEDS: HYDROcodone/APAP 5-325MG 1 EACH TAB PO PRN ×4 (05:01→20:08)
[2019-09-14 07:29] LABS: HCT 31.9 % (34.0-46.0); HGB 10.3 gm/dL (11.4-16.0); MCH 27.8 pg (25.0-35.0); MCHC 32.4 g/dL (31.0-37.0); MCV 85.7 fL (80.0-100.0); Mean Platelet Volume 6.5; Platelet Count 281 k/uL (150-450); RBC 3.72 m/uL (3.80-5.40); RDW 14.4 % (11.5-15.5); WBC 7.2 k/uL (3.8-10.6)
[2019-09-14] MEDS: PANTOPRAZOLE 40 MG TABLET PO SCH ×2 (08:35→17:10)
[2019-09-14] MEDS: MELOXICAM 7.5 MG TAB PO SCH (08:35)
[2019-09-14] MEDS: ASPIRIN 325 MG TAB PO SCH (08:35)
[2019-09-14 09:02] LABS: Eosinophils # (M) 0.07 k/uL (0-0.7); Lymphocytes # (M) 1.22 k/uL (1.0-4.8); Monocytes # (M) 0.58 k/uL (0-1.0); Neutrophils # (M) 5.33 k/uL (1.3-7.7); Neutrophils % (M) 74 %; Nucleated Red Blood Cells 0 /100 WBC (0-0); Total Cells Counted 100
--- NOTE | 2019-09-14 10:32 | P.PN ---
Subjective Progress Note Date: 09/14/19 This patient is a 69-year-old female that presented to [facility] yesterday. The patient underwent a total left hip arthroplasty with Dr. Vega and 09/13/19. Today's postoperative day #1. The patient is examined bedside. Patient states her pain is currently well-controlled and her left hip. She has had he been up with physical therapy. She is experiencing minimal pain or issue with ambula tion while using a walker. He has not yet had a bowel movement postoperatively, although she denies abdominal pain. She states she is feeling well this morning. She denies chest pain, shortness breath, nausea, vomiting, fevers, chills. Objective - Vital Signs Vital signs: Vital Signs Temp 98.0 F 09/14/19 07:47 Pulse 78 09/14/19 07:47 Resp 18 09/14/19 07:47 BP 120/65 09/14/19 07:47 Pulse Ox 96 09/14/19 07:47 Intake & Output 09/13/19 09/14/19 09/14/19 18:59 06:59 18:59 Intake Total 901 690 Output Total 200 1350 Balance 701 -660 Weight 104 kg Intake: IV 901 Oral 690 Output: Urine 1350 Estimated Blood Loss 200 Other: # Voids 2 - Exam On examination, the patient is sitting up in bed in no apparent distress. She is alert and oriented 3. On inspection of the left hip, there is a clean, dry, intact surgical dressing in place. There is no surrounding erythema, warmth, or drainage. There is mild pain on palpation of the left hip and thigh. Patient has good plantarflexion and dorsiflexion of the ankle with minimal pain or issue. Left lower extremity is warm and well-perfused. Motor and sensory function are intact of the left lower extremity. Calves are soft to palpation bilaterally, bilateral lower extremity compression cuffs are in place. - Labs CBC & Chem 7: 09/14/19 07:10 Labs: Abnormal Lab Results - Last 24 Hours (Table) 09/14/19 Range/Units 07:10 RBC 3.72 L (3.80-5.40) m/uL Hgb 10.3 L (11.4-16.0) gm/dL Hct 31.9 L (34.0-46.0) % Assessment and Plan Assessment: Status-post left total hip arthroplasty 09/13/19. Postoperative day #1. Plan: -Weight-bearing as tolerated of the left lower extremity with a walker. Ice and elevate left hip to decrease pain and swelling. - Physical therapy for gait and balance training. - Continue pain management. - Aspirin for DVT prophylaxis. - 2 doses of postoperative antibiotics complete. - Appreciate internal medicine consultation for perioperative medical manageme nt. - Anticipate discharge to rehab Thursday.
[2019-09-14] MEDS: LACTATED RINGERS 1,000 ML IV SCH (11:24)
[2019-09-14] MEDS: DIAZEPAM 5 MG TAB PO PRN ×2 (16:10→22:56)
[2019-09-14] MEDS ORDERED: LACTOBACILLUS ACIDOPH & BULGAR 1 EACH PACKET PO PRN (16:49)
[2019-09-14] MEDS: FUROSEMIDE 20 MG TAB PO SCH (17:09)
[2019-09-14] MEDS: SENNOSIDES-DOCUSATE SODIUM 1 EACH TAB PO SCH (20:08)
[2019-09-14] MEDS: CITALOPRAM HYDROBROMIDE 20 MG TAB PO SCH (20:08)
[2019-09-14] MEDS ORDERED: ASPIRIN 81 MG PO SCH (21:00)
[2019-09-14] MEDS ORDERED: NON FORMULARY DRUG (Omeprazole [Omeprazole] 40 MG) PO SCH (21:00)
[2019-09-15] MEDS: SODIUM CHLORIDE 0.9% 1,000 ML IV SCH ×2 (04:15→20:10)
[2019-09-15] MEDS: HYDROcodone/APAP 5-325MG 1 EACH TAB PO PRN (05:38)
--- NOTE | 2019-09-15 07:17 | CONS ---
CONSULTATION DATE OF SERVICE: 09/14/2019 REASON FOR CONSULTATION: Advice regarding GERD and other medical issues requested by Dr. Vega. HISTORY OF PRESENT ILLNESS: This 69-year-old woman with a past medical history of GERD, DJD, history of sleep apnea, breast surgery being followed by Dr. Bledsoe in the outpatient setting underwent left total hip joint arthroplasty with direct anterior approach for severe DJD by Dr. Vega. There is no history of fever, rigors. No history of headache. No history of chest pain, palpitations, hematochezia or melena at this time. PAST MEDICAL HISTORY: History of GERD, history of DJD, history of sleep apnea, history of breast surgery. MEDICATIONS: Medications prior to admission home medications are: 1. Omeprazole 40 mg p.o. b.i.d. 2. Naprosyn 500 mg b.i.d. p.r.n. 3. Zestoretic 1 tablet p.o. daily. 4. Ativan 1 mg daily p.r.n. 5. Probiotic 1 daily p.r.n. 6. [place] b.i.d. p.r.n. 7. Lasix 20 mg p.o. daily. 8. Celexa to 40 mg at bedtime. 9. Ecotrin 81 mg at bedtime. 10.Senokot 2 tablets daily p.r.n. 11.Aspirin 325 mg p.o. b.i.d. ALLERGIES: Allergies are none. FAMILY HISTORY: History of bowel cancer in the family. SOCIAL HISTORY: No history of smoking, history of THC. REVIEW OF SYSTEMS: ENT: No diminished hearing or diminished vision. CARDIOVASCULAR SYSTEM: No angina. RESPIRATORY SYSTEM: No cough. GI: No nausea. : No dysuria. NERVOUS SYSTEM: No numbness or weakness. ALLERGY/IMMUNOLOGY: No asthma or hayfever. MUSCULOSKELETAL: As mentioned earlier. HEMATOLOGY/ONCOLOGY: No history of anemia. ENDOCRINE: No history of diabetes or hypothyroidism. CONSTITUTIONAL: As mentioned earlier. DERMATOLOGY: Negative. RHEUMATOLOGY: Negative. PSYCHIATRY: As mentioned earlier. PHYSICAL EXAMINATION: The patient is alert and oriented x3. Pulse 78, blood pressure 124/66, respirations 16, temperature 98.1, pulse ox 93% on room air. HEENT: Conjunctivae normal. NECK: No jugular venous distention. CARDIOVASCULAR:S1, S2 muffled. RESPIRATORY: Breath sounds diminished at the bases. No rhonchi, no crackles. ABDOMEN: Soft, nontender. LEGS: Status post left total hip joint arthroplasty. NERVOUS SYSTEM: No focal deficit. LABS: WBC 7.2, hemoglobin 10.3. Otherwise chemistry, sodium is 134. AST, ALT slightly elevated, preop labs. ASSESSMENT: 1. Status post left total hip joint arthroplasty. 2. History of gastroesophageal reflux disease. 3. History of degenerative joint disease. 4. History of sleep apnea. 5. History of Sosa's esophagus. 6. History of hypertension, on no treatment. 7. History of hiatal hernia. 8. History of cholecystectomy. 9. History of anxiety, depression. 10.Mild hyponatremia and increased AST, ALT prior to admission. 11.History of THC. RECOMMENDATIONS AND DISCUSSION: This 69-year-old woman who presented with multiple complex medical issues, at this time I recommend to continue current medications, continue symptomatic treatment. Recommend to resume the home medications, DVT prophylaxis, incentive spirometry. Otherwise, patient may be asked to follow up with Dr. Bledsoe closely after discharge. We will follow the patient closely with you and thank you Dr. Vega, for letting us participate in the care of this patient. MMODL / IJN: [id number] / MTDAlice
[2019-09-15] MEDS: PANTOPRAZOLE 40 MG TABLET PO SCH ×2 (07:39→20:04)
[2019-09-15] MEDS: FUROSEMIDE 20 MG TAB PO SCH (07:39)
[2019-09-15] MEDS: MELOXICAM 7.5 MG TAB PO SCH (07:39)
[2019-09-15] MEDS: LISINOPRIL-HCTZ 10-12.5 MG 1 EACH TAB PO SCH (07:40)
[2019-09-15] MEDS ORDERED: HYDROcodone/APAP 7.5-325MG 1 EACH TAB PO PRN (09:20)
--- NOTE | 2019-09-15 09:20 | P.PN ---
Subjective Progress Note Date: 09/15/19 This is a 69-year-old female who is status post left total hip arthroplasty. This is postoperative day #2. Patient is seen and evaluated at bedside. Patient does report pain in the front of the left thigh, but states that the pain medication does help to control the pain. Patient states that she has been up and walking with physical therapy. Patient denies any fever/chills, numbness, weakness, tingling, abdominal pain, shortness of breath or chest pain. Objective - Vital Signs Vital signs: Vital Signs Temp 98.4 F 09/15/19 07:23 Pulse 81 09/15/19 07:23 Resp 16 09/15/19 07:23 BP 137/58 09/15/19 07:23 Pulse Ox 91 L 09/15/19 07:23 Intake & Output 09/14/19 09/15/19 09/15/19 18:59 06:59 18:59 Intake Total 960 Balance 960 Intake: Intake, IV Titration 420 Amount Sodium Chloride 0.9% 1, 420 000 ml @ 70 mls/hr IV . [id number] [facility] Rx#:[id number] Oral 540 Other: Voiding Method Toilet # Voids 1 2 - Exam Vital signs are stable. Patient is in no acute distress and is alert and oriented 3. Calf is soft and nontender to palpation. Compartments are soft. Dressing is clean, dry, and intact. Patient has full foot and ankle motion without pain or difficulty. Neurovascular status and circulatory status are intact. - Labs CBC & Chem 7: 09/14/19 07:10 Assessment and Plan (1) Osteoarthritis of left hip Current Visit: Yes Status: Acute Code(s): M16.12 - UNILATERAL PRIMARY OSTEOARTHRITIS, LEFT HIP SNOMED Code(s): 269490830113973 (2) Status post total hip replacement, left Current Visit: Yes Status: Acute Code(s): Z96.642 - PRESENCE OF LEFT ARTIFICIAL HIP JOINT SNOMED Code(s): 544292698671 Plan: Continue routine postop care and pain control. Continue anticoagulation with aspirin 81 mg. Weightbearing as tolerated with a walker. Leave dressing in place for 10 days. Appreciate input from internal medicine. Anticipate discharge to [facility] tomorrow.
[2019-09-15] MEDS: HYDROcodone/APAP 7.5-325MG 1 EACH TAB PO PRN ×3 (10:46→22:24)
[2019-09-15] MEDS: CALCIUM CARBONATE 500 MG CHEWABLE PO PRN (10:50)
--- NOTE | 2019-09-15 19:38 | XR ---
EXAMINATION TYPE: XR chest 1V portable DATE OF EXAM: 09/15/2019 COMPARISON: NONE HISTORY: Short of breath TECHNIQUE: Single view FINDINGS: There is no heart failure nor confluent pneumonic infiltrate. Costophrenic angles are clear . Bony thorax is intact. IMPRESSION: No active cardiopulmonary disease.
[2019-09-15] MEDS: ASPIRIN 325 MG TAB PO SCH ×2 (20:03→20:10)
[2019-09-15] MEDS: CITALOPRAM HYDROBROMIDE 20 MG TAB PO SCH (20:10)
[2019-09-15] MEDS: SENNOSIDES-DOCUSATE SODIUM 1 EACH TAB PO SCH (20:10)
--- NOTE | 2019-09-15 22:56 | PN ---
PROGRESS NOTE DATE OF SERVICE: 09/15/2019 This 69-year-old woman who was admitted with left total hip joint arthroplasty is improving significantly. No chest pain. No palpitations. No fever. PHYSICAL EXAM: Alert and oriented times three. Pulse 84, blood pressure 102/60, respirations 16, temperature 98.2, pulse ox 97% on room air. HEENT: Normal. NECK: No JVD. CARDIOVASCULAR: S1, S2 muffled. RESPIRATORY: Breath sounds diminished in the bases. No rhonchi. No crackles. ABDOMEN: Soft, nontender. No mass palpable. LEGS: No edema. No swelling. NERVOUS SYSTEM: Higher functions as mentioned earlier. Moves all four limbs. No focal motor or sensory deficits. Examination of the hip status post surgery. LABS: Hemoglobin 10.3. ASSESSMENT: 1. Status post left total hip joint arthroplasty. 2. History of gastroesophageal reflux disease. 3. History of degenerative joint disease. 4. History of sleep apnea. 5. History of Sosa's esophagus. 6. History of hypertension, on no treatment. 7. History of hiatal hernia. 8. History of cholecystectomy. 9. History of anxiety, depression. 10.History of mild hyponatremia and increased AST, ALT prior to admission. 11.History of THC. RECOMMENDATIONS AND DISCUSSION: Recommend to continue current medications, symptomatic treatment. PT/OT evaluation. Possible ECF rehab. Continue rest of medications. DVT prophylaxis per Orthopedic surgery. Further recommendations to follow. MMJEFFL / KAREEMN: [id number] /
[2019-09-16] MEDS: HYDROcodone/APAP 7.5-325MG 1 EACH TAB PO PRN ×2 (05:25→12:39)
[2019-09-16 07:04] VITALS: BP 144/82; PULSE 61; RESP 14; TEMP 98.7
[2019-09-16 07:51] LABS: ALT 77 U/L (4-34); AST 213 U/L (14-36); African American GFR (CKD) >90 (>60 ml/min/1.73 sqM); Albumin 3.2 g/dL (3.5-5.0); Alkaline Phosphatase 184 U/L (38-126); Anion Gap 4 mmol/L; Blood Urea Nitrogen 10 mg/dL (7-17); Calcium 9.1 mg/dL (8.4-10.2); Carbon Dioxide 32 mmol/L (22-30); Chloride 97 mmol/L (98-107); Glucose 122 mg/dL (74-99); Non-African American GFR(CKD) >90 (>60 ml/min/1.73 sqM); Potassium 3.7 mmol/L (3.5-5.1); Sodium 133 mmol/L (137-145); Total Bilirubin 0.5 mg/dL (0.2-1.3); Total Protein 5.6 g/dL (6.3-8.2)
[2019-09-16 07:58] LABS: HCT 28.4 % (34.0-46.0); HGB 9.4 gm/dL (11.4-16.0); MCH 27.8 pg (25.0-35.0); MCHC 32.9 g/dL (31.0-37.0); MCV 84.5 fL (80.0-100.0); Mean Platelet Volume 6.7; Platelet Count 221 k/uL (150-450); RBC 3.36 m/uL (3.80-5.40); RDW 14.3 % (11.5-15.5)
--- NOTE | 2019-09-16 08:05 | P.DS ---
Providers Date of admission: 09/13/19 10:35 Expected date of discharge: 09/16/19 Attending physician: Keith Vega Consults: 09/13/19 11:08 Consult Physician Routine Consulting Provider: Chong Hope Consult Reason/Comments: medical management Do you want consulting provider notified?: Yes Primary care physician: Gil Bledsoe - Discharge Diagnosis(es) (1) Osteoarthritis of left hip Current Visit: Yes Status: Acute (2) Status post total hip replacement, left Current Visit: Yes Status: Acute Hospital Course: This is a 69-year-old female with known history of degenerative arthritis of the left hip. The patient presents for evaluation. After discussion and consideration patient elects to proceed with total hip arthroplasty. The patient is seen preoperatively by Dr. Vega and medically cleared for surgery by their primary care physician. Patient is admitted to [facility] on 09/13/2019 for total hip arthroplasty. The procedures performed without complication or sequelae. The patient is doing well postoperatively. Labs and vital signs are stable on day of discharge. On day of discharge patient's hip incision is healing well. There is minimal erythema. There is no drainage noted at this time. There is minimal soft tissue swelling to the hip and thigh. Patient has full foot and ankle motion without difficulty or pain. Calf is soft and nontender to palpation. Neurovascular status to the left lower extremity is intact. Patient is discharged to rehab in good condition. Opioid start talking form is reviewed and signed at patient bedside. Please see med rec for accurate list of home medications. Plan - Discharge Summary Discharge Rx Participant: Yes New Discharge Prescriptions: New Aspirin 325 mg PO BID #60 tab HYDROcodone/APAP 7.5-325MG [[place] 7.5-325] 1 - 2 tab PO Q6H PRN #56 tab PRN Reason: Pain Sennosides [Senokot] 2 tab PO DAILY PRN #60 tablet PRN Reason: Constipation No Action Aspirin [Adult Low Dose Aspirin EC] 81 mg PO HS L.acidoph,Paracasei, B.lactis [Probiotic] 1 each PO DAILY PRN PRN Reason: bowel symptoms Citalopram Hydrobromide [CeleXA] 40 mg PO HS HYDROcodone/APAP 10-325MG [[place] 10-325] 0.5 tab PO BID PRN PRN Reason: Pain Omeprazole 40 mg PO BID LORazepam [Ativan] 1 mg PO DAILY PRN PRN Reason: Anxiety Naproxen 500 mg PO BID PRN PRN Reason: Pain Lisinopril-Hctz 10-12.5 mg [Zestoretic 10-12.5] 1 each PO DAILY Furosemide [Lasix] 20 mg PO DAILY Discharge Medication List Aspirin [Adult Low Dose Aspirin EC] 81 mg PO HS 01/24/16 [History] Citalopram Hydrobromide [CeleXA] 40 mg PO HS 01/24/16 [History] HYDROcodone/APAP 10-325MG [[place] 10-325] 0.5 tab PO BID PRN 01/24/16 [History] L.acidoph,Paracasei, B.lactis [Probiotic] 1 each PO DAILY PRN 01/24/16 [History] LORazepam [Ativan] 1 mg PO DAILY PRN 01/24/16 [History] Omeprazole 40 mg PO BID 01/24/16 [History] Naproxen 500 mg PO BID PRN 04/12/18 [History] Furosemide [Lasix] 20 mg PO DAILY 09/02/19 [History] Lisinopril-Hctz 10-12.5 mg [Zestoretic 10-12.5] 1 each PO DAILY 09/02/19 [History] Aspirin 325 mg PO BID #60 tab 09/13/19 [Rx] HYDROcodone/APAP 7.5-325MG [[place] 7.5-325] 1 - 2 tab PO Q6H PRN #56 tab 09/15/19 [Rx] Sennosides [Senokot] 2 tab PO DAILY PRN #60 tablet 09/15/19 [Rx] Follow up Appointment(s)/Referral(s): Keith Vega DO [Doctor of Osteopathic Medicine] - 2 Weeks Activity/Diet/Wound Care/Special Instructions: Weightbearing as tolerated with walker. Leave dressing intact. Dressing may be removed by home care nurse or by patient in 10 days. May shower with dressing on. Recommend use of compression stockings daily for at least 2 weeks during the day to help prevent swelling and blood clots. May remove at night before sleeping. Please follow-up with [facility] in 2 weeks and call with any questions or concerns, . Discharge Disposition: TRANSFER TO SNF/ECF
[2019-09-16 08:38] LABS: Eosinophils # (M) 0.24 k/uL (0-0.7); Monocytes # (M) 0.12 k/uL (0-1.0); Neutrophils # (M) 3.04 k/uL (1.3-7.7); Neutrophils % (M) 76 %; Nucleated Red Blood Cells 0 /100 WBC (0-0); Total Cells Counted 100
[2019-09-16] MEDS: MELOXICAM 7.5 MG TAB PO SCH (08:53)
[2019-09-16] MEDS: ASPIRIN 325 MG TAB PO SCH (08:54)
[2019-09-16] MEDS: LISINOPRIL-HCTZ 10-12.5 MG 1 EACH TAB PO SCH (08:54)
[2019-09-16] MEDS: PANTOPRAZOLE 40 MG TABLET PO SCH (08:54)
[2019-09-16] MEDS: FUROSEMIDE 20 MG TAB PO SCH (08:54)
[2019-09-16] MEDS: CALCIUM CARBONATE 500 MG CHEWABLE PO PRN (11:21)
[2019-09-16] MEDS: SODIUM CHLORIDE 0.9% 1,000 ML IV SCH (13:34)
--- NOTE | 2019-09-16 15:46 | P.PN ---
Subjective Progress Note Date: 09/16/19 Principal diagnosis: This is a 69-year-old female who was recently admitted for left total hip joint arthroplasty and is being closely monitored. Currently patient is sitting up in the chair in no acute distress. Per social work, rehab authorization was denied and patient will be going home with home care sometime today. Patient continued to work with PT/OT and is doing quite well. Patient states that she feels okay going home but lives alone and felt she would benefit from some rehab after her hip surgery. Patient did obtain a walker. Currently patient denies any chest pain, shortness of breath, or palpitations. Patient is afebrile. Patient denies any nausea or vomiting and has been tolerating diet. Patient states that she has been getting up with a walker to go to the bathroom with no difficulties. Objective - Vital Signs Vital signs: Vital Signs Temp 98.7 F 09/16/19 07:03 Pulse 61 09/16/19 07:03 Resp 14 09/16/19 07:03 BP 144/82 09/16/19 07:03 Pulse Ox 98 09/16/19 07:03 Intake & Output 09/15/19 09/16/19 09/16/19 18:59 06:59 18:59 Intake Total 740 480 Balance 740 480 Intake: Oral 740 480 Other: Voiding Method Toilet # Voids 3 3 3 - Exam Gen: This is a 69-year-old female sitting up in the chair and appears to be in no acute distress. HEENT: Head is atraumatic, normocephalic. Pupils equal, round. Sclerae is anicteric. NECK: Supple. No JVD. No lymphadenopathy. No thyromegaly. LUNGS: Diminished breath sounds at the bases otherwise clear to auscultation with no wheezes or rhonchi noted. No intercostal retractions. HEART: S1, S2 present. Regular rate and rhythm. No murmur. ABDOMEN: Soft. Bowel sounds are present. No masses. No tenderness. EXTREMITIES: No pedal edema. No calf tenderness. Left hip status post surgery, no erythema noted NEUROLOGICAL: Patient is awake, alert and oriented x3. Cranial nerves 2 through 12 are grossly intact. - Labs CBC & Chem 7: 09/16/19 07:19 09/16/19 07:19 Labs: Abnormal Lab Results - Last 24 Hours (Table) 09/16/19 09/16/19 Range/Units 07:19 07:19 RBC 3.36 L (3.80-5.40) m/uL Hgb 9.4 L (11.4-16.0) gm/dL Hct 28.4 L (34.0-46.0) % Lymphocytes # (Manual) 0.60 L (1.0-4.8) k/uL Sodium 133 L (137-145) mmol/L Chloride 97 L (98-107) mmol/L Carbon Dioxide 32 H (22-30) mmol/L Creatinine 0.49 L (0.52-1.04) mg/dL Glucose 122 H (74-99) mg/dL AST 213 H (14-36) U/L ALT 77 H (4-34) U/L Alkaline Phosphatase 184 H (38-126) U/L Total Protein 5.6 L (6.3-8.2) g/dL Albumin 3.2 L (3.5-5.0) g/dL Assessment and Plan Assessment: Status post left total hip joint arthroplasty History of gastroesophageal reflux disease History of degenerative joint disease History of sleep apnea History of Sosa's esophagus History of hypertension, on no treatment History of hiatal hernia History of cholecystectomy History of anxiety, depression History of mild hyponatremia and increased AST, ALT, prior to admission History of THC Recommendations and discussion: Recommend to continue current medications, management, and symptomatic treatment. Patient to continue working with PT/OT for strength and mobility. Per social work patient was denied authorization to rehab and patient will be going home today with home care. Patient will follow-up with Dr. Vega in the outpatient setting in 1-2 weeks. Further recommendations to follow. Guarded prognosis. Plan is for discharge today.
== END 2019-09-16 14:27 | disposition home health service (06) | DRG 470 ==
LOC: 2ORMAIN 10:35 → 4SSUR 15:11
PROVIDERS: ADMIT Orthopaedic Surgery; ATTEND Orthopaedic Surgery
PROC: 0SRB06A Replacement of Left Hip Joint with Oxidized Zirconium on Polyethylene Synthetic Substitute, Uncemented, Open Approach (ICD-10-PCS; principal; 2019-09-13 11:35)
DX: M16.12 Unilateral primary osteoarthritis, left hip (principal); E87.1 Hypo-osmolality and hyponatremia; I10 Essential (primary) hypertension; G47.30 Sleep apnea, unspecified; F32.9 Major depressive disorder, single episode, unspecified; F41.9 Anxiety disorder, unspecified; K21.9 Gastro-esophageal reflux disease without esophagitis; K22.70 Barrett's esophagus without dysplasia; Z90.49 Acquired absence of other specified parts of digestive tract; Z80.0 Family history of malignant neoplasm of digestive organs
CPT/HCPCS: 71045; 73501; 80053; 85025; 86850; 86891; 86900; 86901; 88300

== ENCOUNTER → 2020-02-23 | Outpatient (CLI) | payer MEDICARE ==
[2020-02-23 12:12] LABS: Anisocytosis Slight; HCT 37.3 % (34.0-46.0); HGB 12.1 gm/dL (11.4-16.0); MCH 27.8 pg (25.0-35.0); MCHC 32.5 g/dL (31.0-37.0); MCV 85.5 fL (80.0-100.0); Mean Platelet Volume 6.7; Platelet Count 252 k/uL (150-450); RBC 4.36 m/uL (3.80-5.40); WBC 6.1 k/uL (3.8-10.6)
[2020-02-23 12:18] LABS: Appearance,Urine Clear (Clear); Bilirubin,Urine Negative (Negative); Blood,Urine Negative (Negative); Color,Urine Light Yellow; Glucose,Urine (UA) Negative (Negative); Ketones,Urine Negative (Negative); Leukocyte Esterase,Urine Trace (Negative); Nitrite,Urine Negative (Negative); PH, Urine 6.5 (5.0-8.0); Protein,Urine Negative (Negative); RBC,Urine 1 /hpf (0-5); Specific Gravity,Urine 1.008 (1.001-1.035); Squamous Epithelial Cell,Urine <1 /hpf (0-4); Urobilinogen,Urine <2.0 mg/dL (<2.0); WBC,Urine 2 /hpf (0-5)
[2020-02-23 12:22] LABS: ALT 7 U/L (4-34); AST 22 U/L (14-36); African American GFR (CKD) >90 (>60 ml/min/1.73 sqM); Alkaline Phosphatase 80 U/L (38-126); Anion Gap 10 mmol/L; Blood Urea Nitrogen 18 mg/dL (7-17); Calcium 9.7 mg/dL (8.4-10.2); Carbon Dioxide 23 mmol/L (22-30); Chloride 99 mmol/L (98-107); Glucose 94 mg/dL (74-99); Non-African American GFR(CKD) >90 (>60 ml/min/1.73 sqM); Potassium 4.3 mmol/L (3.5-5.1); Sodium 132 mmol/L (137-145); Total Bilirubin 0.3 mg/dL (0.2-1.3); Total Protein 6.9 g/dL (6.3-8.2)
[2020-02-23 12:29] LABS: INR 0.9 (<1.2); Prothrombin Time 9.5 sec (9.0-12.0)
[2020-02-23 12:36] LABS: Partial Thromboplastin Time 21.3 sec (22.0-30.0)
== END | disposition home or self-care (01) ==
LOC: LABPAT 11:01
PROVIDERS: ATTEND Orthopaedic Surgery
DX: Z01.818 Encounter for other preprocedural examination (principal); Z01.812 Encounter for preprocedural laboratory examination; U07.1 COVID-19
CPT/HCPCS: 80053; 85027; 85610; 85730; 81001; 87070; U0003; 36415; 86850; 86900; 86901

== ENCOUNTER 2020-02-27 05:45 | Day surgery (SDC) | payer MEDICARE ==
[2020-02-23 10:29] VITALS: BMI 43.9
[~2020-02-27 05:45] MED LIST changes: +ALVIMOPAN 12 MG CAPSULE PO ONE; -DEXAMETHASONE SOD PHOSPHATE 10 MG/ML 1 ML VIAL IV ONE; -HYDROmorphone 0.5 MG/0.5 ML SYRINGE IVP PRN; -LIDOCAINE 1% 20 ML VIAL (10MG/ML) FOR IV START INTRADERMA PRN; -fentaNYL (PF) 50 MCG/ML 2 ML AMP IV PRN
[2020-02-27] MEDS ORDERED: LACTATED RINGERS 1,000 ML IV ONE ×2 (06:17→08:01)
[2020-02-27] MEDS ORDERED: PROPOFOL 10 MG/ML 20 ML VIAL IV ONE (06:53)
[2020-02-27] MEDS ORDERED: SODIUM CHLORIDE 0.9% 100 ML BAG ONE (06:53)
[2020-02-27] MEDS ORDERED: TRANEXAMIC ACID 1,000 MG/10 ML VIAL ONE (06:53)
[2020-02-27] MEDS ORDERED: HEPARIN SODIUM,PORCINE 10,000 UNIT/ML 1 ML VIAL ONE (06:53)
[2020-02-27] MEDS ORDERED: MIDAZOLAM 2 MG/2 ML VIAL ONE (06:53)
[2020-02-27] MEDS ORDERED: fentaNYL (PF) 50 MCG/ML 2 ML AMP ONE (06:53)
[2020-02-27] MEDS ORDERED: HYDROmorphone (PF) 1 MG/ML ONE (06:53)
[2020-02-27] MEDS ORDERED: SODIUM CHLORIDE 0.9% IRRIG 1,000 ML BTL IRRIGATION ONE (06:53)
[2020-02-27] MEDS ORDERED: HYDROcodone/APAP 7.5-325MG 1 EACH TAB PO PRN (07:05)
[2020-02-27] MEDS ORDERED: hydrOXYzine PAMOATE 25 MG CAP PO PRN (07:05)
[2020-02-27] MEDS ORDERED: DIAZEPAM 5 MG TAB PO PRN (07:05)
[2020-02-27] MEDS ORDERED: MAGNESIUM HYDROXIDE 2,400 MG/10 ML CUP PO PRN (07:05)
[2020-02-27] MEDS ORDERED: ONDANSETRON 4 MG/2 ML VIAL IVP PRN (07:05)
[2020-02-27] MEDS ORDERED: HYDROmorphone 0.5 MG/0.5 ML SYRINGE IVP PRN ×3 (07:05)
[2020-02-27] MEDS ORDERED: NALOXONE 0.4 MG/ML 1 ML VIAL IV PRN (07:05)
[2020-02-27] MEDS: ROPIVACAINE 246.25 MG, EPINEPHrine 0.5 MG, KETOROLAC 30 MG, cloNIDine HCL/PF 80 MCG, WA... MISCELLANE ONE ×10 (07:32→08:17)
[2020-02-27] MEDS ORDERED: ceFAZolin 3,000 MG in SODIUM CHLORIDE 0.9% IRRIGATIO 3,000 ML IRRIGATION ONE (07:33)
--- NOTE | 2020-02-27 08:44 | P.OP ---
Date of Procedure: 02/27/20 Preoperative Diagnosis: Severe osteoarthritis right hip Postoperative Diagnosis: Severe osteoarthritis right hip Procedure(s) Performed: Right total hip arthroplasty with a direct anterior approach Implants: Ferreira and nephew Polarstem size 1 standard Ferreira [employer] Nephew R3, 3 hole acetabular shell, 48 mm Ferreira [employer] Nephew reflection 6.5 mm cancellus screw, 20 mm 2 Ferreira [employer] Nephew R3, XLPE 20 acetabular liner Ferreira [employer] Nephew Oxinium femoral head 32 m, +0 All components were press-fit. The articulation is Oxinium on polyethylene. Anesthesia: spinal Surgeon: Keith Vega Curtain Fitter #1: Yolanda Ram Estimated Blood Loss (ml): 200 (62 mL returned with Cell Saver) Pathology: other (Femoral head) Condition: stable Disposition: PACU Indications for Procedure: After failure of conservative treatment we discussed the surgical and nonsurgical treatment options at length. Patient wishes to proceed with a total hip arthroplasty with a direct anterior approach. Complications specific to this procedure were discussed at length, including but not limited to infection, leg length discrepancy, dislocation, and nerve injury. Covid-19 was also discussed at length with the patient, and they are aware of the current policies and procedures. The patient was given the option of delaying surgery, but they elect to proceed knowing these risks. Patient is aware of all these complications and informed consent was obtained Operative Findings: The operative findings are consistent with severe osteoarthritis of the right hip Description of Procedure: Patient was seen and evaluated in the preoperative area, consent was reviewed, and the surgical site was marked with a skin marker. Patient was then brought to the operating room and given prophylactic antibiotics intravenously. 1 g of Tranexamic acid was also given. A spinal anesthetic was administered by the anesthesia department. The patient was then placed on the Austin table with the bony prominences well-padded. The hip area was then prepped and draped in usual sterile fashion. A universal timeout was then performed, which confirmed the patient's name, surgical site, ALLERGIES, and procedure being performed. Next the incision site was located at 1 cm distal and 1 cm lateral to the anterior superior iliac spine. The skin and subcutaneous tissues were sharply incised. Incision was carefully dissected down to the fascia overlying the tensor fascia jonathan muscle. This fascia was then incised in line with the incision. Next, using blunt finger dissection, the tensor fascia jonathan muscle was dissected off its investing fascia. The muscle was then carefully retracted laterally with a cobra retractor over the lateral neck of the femur. Next, the circumflex vessels were identified and cauterized using the AquaMantis device. The anterior hip capsule was then exposed. The capsule was then opened and an inverted T fashion. Cobra retractors were then placed intracapsularly. The proximal femur was then visualized. The femoral neck was then osteotomized appropriate level above the lesser trochanter. Small amount of traction was placed with the Austin table. A small wedge of bone was then removed from the remaining femoral head. Next, using a corkscrew femoral head was easily removed from the acetabulum. On gross visual inspection, the femoral head had complete loss of articular cartilage in multiple periarticular osteophytes. Attention was then turned to the acetabulum. the acetabulum was exposed and any remaining labrum was excised. Sequential reaming of the acetabulum was performed using fluoroscopic guidance. When the appropriate size was reached, a trial was then placed. The position and fit of the trial was checked with fluoroscopy. The trial was then removed. Then, using fluoroscopic guidance, the final implant was impacted at 20 of anteversion and 40 of abduction, and fully seated in the acetabulum. 2 screws were then placed in the acetabulum. Again fluoroscopy was used to check position of the screws. Next, the liner was then impacted, with a 20 elevated liner located in the anterior superior quadrant. Component locking was confirmed. Attention was then directed to the femur. With the aid of the Austin table, the femur was externally rotated to approximately 130, extended, and abducted under the opposite leg. A side hook was then placed under the proximal femur, and the side hook elevator was used to elevate the proximal femur. Retractors were then placed. A capsular release was performed, as well as a release of the conjoined tendon, which afforded excellent visualization of the proximal femur. Next, a box osteotome was used to lateralize the proximal femur. A roll handler was then used to locate the femoral canal. Sequential broaching was then performed with appropriate size which afforded excellent fixation in the proximal femur. A trial was then placed with appropriate head and neck, and the hip was gently reduced with the aid of the Austin table. Fluoroscopy was then used to check position of the components, as well as to ensure equal leg lengths. The hip was then gently dislocated and the trials were then removed. Final implants were then impacted and the hip was again reduced. Final fluoroscopic x-rays confirmed that the components were in anatomic position, as well as equal leg lengths. The hip was also taken through range of motion, and found to be stable. The hip was then copiously irrigated with antibiotic solution with pulsatile lavage. The hip was then irrigated with Irrisept solution. The soft tissues were then injected with a ropivacaine solution, which consisted of 246.25 mg of ropivacaine, 0.5 mg of epinephrine, 30 mg of Toradol, 80 g of clonidine, and 48.45 mL of sterile water, for a total of 100 mL of fluid injected. A second dose of 1 g of Tranexamic acid was also given. the fascia was then closed with 2-0 strata fix suture. The subcutaneous tissue was closed with 3-0 Vicryl. The subcuticular tissue was closed with 3-0 strata fix suture. The skin was then closed with Dermabond glue and a sterile silver dressing. The patient was then transferred to the recovery room in stable condition. The portfolio assistant MICHAEL Wagoner was required due to the complexity of surgery, and the need for skilled surgical territory manager for positioning, draping, exposure, retraction, and closure of the wound.
--- NOTE | 2020-02-27 08:51 | FL ---
Fluoroscopy HISTORY: Anterior hip replacement 34 seconds fluoroscopy time supplied to the referring clinician. 2 intraoperative C-arm images docu ment the procedure. See dictated report from orthopedic surgery.
--- NOTE | 2020-02-27 08:52 | XR ---
Limited right hip HISTORY: Anterior hip replacement 2 intraoperative C-arm images document the procedure.
--- NOTE | 2020-02-27 09:26 | XR ---
Limited right hip HISTORY: Status post right hip arthroplasty Single frontal view of the right hip. Patient is status post right hip arthroplasty. There is anatomic alignment. Lucency is present in the soft tissues. IMPRESSION: Orthopedic follow-up.
[2020-02-27] MEDS: SODIUM CHLORIDE 0.9% 1,000 ML IV SCH (11:20)
--- NOTE | 2020-02-27 12:58 | P.HPIM ---
History of Present Illness Chief Complaint: Recommendations regarding antihypertensive medications 69-year-old pleasant female admitted for left hip arthroplasty sexually underwent surgery. Postoperatively patient is bit hypoxic patient does have history of sleep apnea patient has a transient the brief episode of mild chest pressure secondary to hypoxemia which resolved immediately. Patient denied any fever chills nausea vomiting patient denied any dysuria patient doesn't have full catheter clinically doing well pain is with controlled at this time. Review of Systems REVIEW OF SYSTEMS: CONSTITUTIONAL: No fever, no malaise, no fatigue. HEENT: No recent visual problems or hearing problems. Denied any sore throat. CARDIOVASCULAR: No orthopnea, PND, no palpitations, no syncope. PULMONARY: No shortness of breath, no cough, no hemoptysis. GASTROINTESTINAL: No diarrhea, no nausea, no vomiting, no abdominal pain. NEUROLOGICAL: No headaches, no weakness, no numbness. HEMATOLOGICAL: Denies any bleeding or petechiae. GENITOURINARY: Denies any burning micturition, frequency, or urgency. MUSCULOSKELETAL/RHEUMATOLOGICAL: Denies any joint pain, swelling, or any muscle pain. ENDOCRINE: Denies any polyuria or polydipsia. The rest of the 14-point review of systems is negative. Past Medical History Past Medical History: GERD/Reflux, Hypertension, Osteoarthritis (OA), Sleep Apnea/CPAP/BIPAP Additional Past Medical History / Comment(s): barretts esophagus, hiatal hernia, "sciatica like pain" History of Any Multi-Drug Resistant Organisms: None Reported Past Surgical History: Breast Surgery, Cholecystectomy, Joint Replacement, Orthopedic Surgery, Tonsillectomy Additional Past Surgical History / Comment(s): ORIF-left wrist now has a plate, left breast biopsy, surgery to laser uvula for sleep apnea, arthroscopy left shoulder, LT JULIANO-08/2019, Past Anesthesia/Blood Transfusion Reactions: Motion Sickness Additional Past Anesthesia/Blood Transfusion Reaction / Comment(s): "rare motrion sickness", Past Psychological History: Anxiety, Depression Smoking Status: Never smoker Past Alcohol Use History: None Reported Past Drug Use History: None Reported - Past Family History Mother Family Medical History: No Reported History Additional Family Medical History / Comment(s): maternal grandma: had bowel ca Father Family Medical History: Coronary Artery Disease (CAD) Medications and Allergies Home Medications Medication Instructions Recorded Confirmed Type Citalopram Hydrobromide [CeleXA] 40 mg PO HS 01/24/16 02/27/20 History Omeprazole 40 mg PO BID 01/24/16 02/27/20 History Furosemide [Lasix] 20 mg PO DAILY 09/02/19 02/27/20 History Lisinopril-Hctz 10-12.5 mg 1 each PO DAILY 09/02/19 02/27/20 History [Zestoretic 10-12.5] Meloxicam [Mobic] 7.5 mg PO DAILY 30 Days #30 tab 09/16/19 02/27/20 Rx Aspirin [Adult Low Dose Aspirin EC] 81 mg PO HS 02/23/20 02/27/20 History Allergies Allergy/AdvReac Type Severity Reaction Status Date / Time No Known Allergies Allergy Verified 02/23/20 10:10 Physical Exam Vitals: Vital Signs Temp Pulse Pulse Pulse Resp BP BP 02/27/20 11:45 76 132/79 02/27/20 11:30 73 129/71 02/27/20 11:15 69 119/74 02/27/20 11:00 75 127/65 02/27/20 10:45 73 139/79 02/27/20 10:30 69 131/80 02/27/20 10:15 68 141/81 02/27/20 10:00 66 147/82 02/27/20 09:54 97.7 F 62 17 150/69 02/27/20 09:34 65 16 174/81 02/27/20 09:18 60 16 170/82 02/27/20 09:03 59 L 16 158/81 02/27/20 08:48 97.2 F L 69 16 142/63 02/27/20 06:00 96.7 F L 68 18 191/80 Pulse Ox 02/27/20 11:45 94 L 02/27/20 11:30 96 02/27/20 11:15 94 L 02/27/20 11:00 98 02/27/20 10:45 100 02/27/20 10:30 100 02/27/20 10:15 100 02/27/20 10:00 100 02/27/20 09:54 98 02/27/20 09:34 99 02/27/20 09:18 100 02/27/20 09:03 100 02/27/20 08:48 98 02/27/20 06:00 100 Intake and Output 02/26/20 02/27/20 02/27/20 22:59 06:59 14:59 Intake Total 1000 351 Output Total 200 Balance 1000 151 Intake: IV 1000 351 Output: Estimated Blood Loss 200 Other: Weight 108 kg 108 kg PHYSICAL EXAMINATION: GENERAL: The patient is alert and oriented x3, not in any acute distress. Obese HEENT: Pupils are round and equally reacting to light. EOMI. No scleral icterus. No conjunctival pallor. Normocephalic, atraumatic. No pharyngeal erythema. No thyromegaly. CARDIOVASCULAR: S1 and S2 present. No murmurs, rubs, or gallops. PULMONARY: Chest is clear to auscultation, no wheezing or crackles. ABDOMEN: Soft, nontender, nondistended, normoactive bowel sounds. No palpable organomegaly. MUSCULOSKELETAL: No joint swelling or deformity. EXTREMITIES: No cyanosis, clubbing, or pedal edema. NEUROLOGICAL: Gross neurological examination did not reveal any focal deficits. SKIN: No rashes. Thrombosis Risk Factor Assmnt - Choose All That Apply Any of the Below Risk Factors Present?: Yes Each Factor Represents 1 point: Obesity (BMI >25) Other Risk Factors: Yes Each Risk Factor Represents 2 Points: Age 61-74 years Other congenital or acquired thrombophilia - If yes, enter type in comment: Yes Each Risk Factor Represents 5 Points: Elective major lower extremity arthoplasty Thrombosis Risk Factor Assessment Total Risk Factor Score: 8 Thrombosis Risk Factor Assessment Level: High Risk Assessment and Plan Plan: -Hypoxia episode does have history of sleep apnea saturations dropped when she was sleeping patient is going to need CPAP machine which are the son is bringing today. -Left hip arthroplasty: Pain management as per primary service and patient is on aspirin 325 mg by mouth twice a day for DVT prophylaxis. Abdomen Obesity with sleep apnea -Gastroesophageal reflux disease -Hypertension: Hold off diuretics as patient is receiving IV fluids at this time continue with lisinopril patient is expected to have low blood pressure in the perioperative period -Depression and anxiety: Resume her home medication -Gastroesophageal reflux disease
[2020-02-27] MEDS: PANTOPRAZOLE 40 MG TABLET PO SCH (16:35)
[2020-02-27] MEDS: HYDROcodone/APAP 7.5-325MG 1 EACH TAB PO PRN (20:02)
[2020-02-27] MEDS: ASPIRIN 325 MG TAB PO SCH (20:02)
[2020-02-27] MEDS ORDERED: CITALOPRAM HYDROBROMIDE 20 MG TAB PO SCH (21:00)
[2020-02-27] MEDS ORDERED: SENNOSIDES-DOCUSATE SODIUM 1 EACH TAB PO SCH (21:00)
[2020-02-28] MEDS: SODIUM CHLORIDE 0.9% 1,000 ML IV SCH ×2 (01:05→11:01)
[2020-02-28 01:47] VITALS: RESP 18
[2020-02-28] MEDS: HYDROcodone/APAP 7.5-325MG 1 EACH TAB PO PRN ×2 (05:19→10:41)
[2020-02-28] MEDS: ASPIRIN 325 MG TAB PO SCH (07:19)
[2020-02-28] MEDS: PANTOPRAZOLE 40 MG TABLET PO SCH (07:20)
[2020-02-28 07:40] VITALS: BP 119/75; PULSE 70; TEMP 99
[2020-02-28] MEDS ORDERED: MELOXICAM 7.5 MG TAB PO SCH (09:00)
[2020-02-28] MEDS ORDERED: LISINOPRIL 10 MG TAB PO SCH (09:00)
--- NOTE | 2020-02-28 09:08 | P.DS ---
Providers Expected date of discharge: 02/28/20 Attending physician: Keith Vega Consults: 02/27/20 07:05 Consult Physician Routine Consulting Provider: Matt Ozuna Consult Reason/Comments: medical management - covering Dr. Sim Do you want consulting provider notified?: Yes Primary care physician: Gil Bledsoe - Discharge Diagnosis(es) (1) S/P total hip arthroplasty Current Visit: Yes Status: Acute (2) Osteoarthritis of right hip Current Visit: Yes Status: Acute Hospital Course: This is a 69-year-old female with known history of degenerative arthritis of the right hip. The patient presents for evaluation. After discussion and conside ration patient elects to proceed with total hip arthroplasty. The patient is seen preoperatively by Dr. Vega and medically cleared for surgery by their primary care physician. Patient is admitted to [facility] on 02/27/2020 for total hip arthroplasty. The procedures performed without complication or sequelae. The patient is doing well postoperatively. Labs and vital signs are stable on day of discharge. On day of discharge patient's hip incision is healing well. There is minimal erythema. There is no drainage noted at this time. There is minimal soft tissue swelling to the hip and thigh. Patient has full foot and ankle motion without difficulty or pain. Calf is soft and nontender to palpation. Neurovascular status to the right lower extremity is intact. Patient is discharged home in good condition. Opioid start talking form is reviewed and signed at patient bedside. Please see med rec for accurate list of home medications. Plan - Discharge Summary Discharge Rx Participant: Yes New Discharge Prescriptions: New Aspirin 325 mg PO BID #60 tab HYDROcodone/APAP 7.5-325MG [Jeannette 7.5-325] 1 - 2 tab PO Q6H PRN #56 tab PRN Reason: Pain Sennosides [Senokot] 2 tab PO DAILY PRN #60 tablet PRN Reason: Constipation No Action Citalopram Hydrobromide [CeleXA] 40 mg PO HS Omeprazole 40 mg PO BID Lisinopril-Hctz 10-12.5 mg [Zestoretic 10-12.5] 1 each PO DAILY Furosemide [Lasix] 20 mg PO DAILY Meloxicam [Mobic] 7.5 mg PO DAILY 30 Days #30 tab Aspirin [Adult Low Dose Aspirin EC] 81 mg PO HS Discharge Medication List Citalopram Hydrobromide [CeleXA] 40 mg PO HS 01/24/16 [History] Omeprazole 40 mg PO BID 01/24/16 [History] Furosemide [Lasix] 20 mg PO DAILY 09/02/19 [History] Lisinopril-Hctz 10-12.5 mg [Zestoretic 10-12.5] 1 each PO DAILY 09/02/19 [History] Meloxicam [Mobic] 7.5 mg PO DAILY 30 Days #30 tab 09/16/19 [Rx] Aspirin [Adult Low Dose Aspirin EC] 81 mg PO HS 02/23/20 [History] Aspirin 325 mg PO BID #60 tab 02/28/20 [Rx] HYDROcodone/APAP 7.5-325MG [Jeannette 7.5-325] 1 - 2 tab PO Q6H PRN #56 tab 02/28/20 [Rx] Sennosides [Senokot] 2 tab PO DAILY PRN #60 tablet 02/28/20 [Rx] Follow up Appointment(s)/Referral(s): Keith Vega DO [Doctor of Osteopathic Medicine] - 2 Weeks Activity/Diet/Wound Care/Special Instructions: Weightbearing as tolerated with walker. Leave dressing intact. Dressing may be removed by home care nurse or by patient in 10 days. May shower with dressing on. Recommend use of compression stockings daily until follow up to help prevent swelling and blood clots. May remove at night before sleeping. Please follow-up with [facility] in 2 weeks and call with any questions or concerns, . Discharge Disposition: HOME WITH HOME HEALTH SERVICES
[2020-02-28 09:18] LABS: Basophils % (A) 0 %; Eosinophils # (A) 0.1 k/uL (0-0.7); Eosinophils % (A) 2 %; HCT 33.8 % (34.0-46.0); HGB 11.2 gm/dL (11.4-16.0); Lymphocytes # (A) 0.7 k/uL (1.0-4.8); Lymphocytes % (A) 14 %; MCH 28.8 pg (25.0-35.0); MCHC 33.2 g/dL (31.0-37.0); MCV 86.6 fL (80.0-100.0); Mean Platelet Volume 6.6; Monocytes # (A) 0.6 k/uL (0-1.0); Monocytes % (A) 12 %; Neutrophils # (A) 3.3 k/uL (1.3-7.7); Neutrophils % (A) 68 %; Platelet Count 211 k/uL (150-450); RDW 15.9 % (11.5-15.5); WBC 4.9 k/uL (3.8-10.6)
== END 2020-02-28 11:53 | disposition home health service (06) ==
LOC: OR 05:45 → 4SSUR 08:43 → OR 02-28 11:53
PROVIDERS: ATTEND Orthopaedic Surgery
DX: M16.11 Unilateral primary osteoarthritis, right hip (principal); I10 Essential (primary) hypertension; R09.02 Hypoxemia; E66.01 Morbid (severe) obesity due to excess calories; Z68.41 Body mass index [BMI] 40.0-44.9, adult; K22.70 Barrett's esophagus without dysplasia; K30 Functional dyspepsia; Z98.890 Other specified postprocedural states; K21.9 Gastro-esophageal reflux disease without esophagitis; N39.3 Stress incontinence (female) (male); F32.9 Major depressive disorder, single episode, unspecified; K44.9 Diaphragmatic hernia without obstruction or gangrene; G47.33 Obstructive sleep apnea (adult) (pediatric); Z99.89 Dependence on other enabling machines and devices; F41.9 Anxiety disorder, unspecified; Z80.0 Family history of malignant neoplasm of digestive organs; Z96.642 Presence of left artificial hip joint; Z82.49 Family history of ischemic heart disease and other diseases of the circulatory system; Z97.3 Presence of spectacles and contact lenses; Z90.49 Acquired absence of other specified parts of digestive tract; F10.21 Alcohol dependence, in remission; Z83.3 Family history of diabetes mellitus; Z83.79 Family history of other diseases of the digestive system; Z79.1 Long term (current) use of non-steroidal anti-inflammatories (NSAID); Z79.891 Long term (current) use of opiate analgesic; Z79.899 Other long term (current) drug therapy; Z79.82 Long term (current) use of aspirin
CPT/HCPCS: 97116; 97110; 97161; 97535; 97165; 86891; 86900; 86901; 85025; 86850; 88300; 73501; 36415; 27130; C1776; J0171; J0690 ×3; J2405; J1885; J2795; J0735; J1170

== ENCOUNTER 2020-02-29 17:31 | Inpatient (IN) | payer MEDICARE ==
--- NOTE | 2020-02-29 18:01 | ED ---
Lower Extremity Injury HPI - General Chief Complaint: Extremity Injury, Lower Stated Complaint: hip pain Time Seen by Provider: 02/29/20 17:40 Source: EMS Mode of arrival: EMS Limitations: no limitations - History of Present Illness Initial Comments: Patient is a 69-year-old female presenting to the emergency Department with complaints of right hip pain. Patient states she is status post 2 days from a total right hip by Dr. Vega. Patient states she was in the shower and went to step out when she felt a grinding sensation in her right hip and was not able to bear weight at all. She denies falling. Patient states she was able to sit back on her shower chair. Patient called EMS. She received fentanyl in the EMS prior to arrival. She denies any recent fever, chills, chest pain, shortness of breath. She has no further complaints at this time. Upon arrival to the ER, her vitals are stable. - Related Data Home Medications Medication Instructions Recorded Confirmed Citalopram Hydrobromide [CeleXA] 40 mg PO HS 01/24/16 02/29/20 Furosemide [Lasix] 20 mg PO DAILY PRN 09/02/19 02/29/20 Lisinopril-Hctz 10-12.5 mg 1 each PO DAILY 09/02/19 02/29/20 [Zestoretic 10-12.5] Meloxicam [Mobic] 15 mg PO DAILY 02/29/20 02/29/20 Omeprazole [PriLOSEC] 40 mg PO BID 02/29/20 02/29/20 Sennosides [Senokot] 17.2 mg PO DAILY PRN 02/29/20 02/29/20 Previous Rx's Medication Instructions Recorded Meloxicam [Mobic] 7.5 mg PO DAILY 30 Days #30 tab 09/16/19 Aspirin 325 mg PO BID #60 tab 02/28/20 HYDROcodone/APAP 7.5-325MG [Olin 1 - 2 tab PO Q6H PRN #56 tab 02/28/20 7.5-325] Allergies Allergy/AdvReac Type Severity Reaction Status Date / Time No Known Allergies Allergy Verified 02/29/20 18:59 Review of Systems ROS Statement: Those systems with pertinent positive or pertinent negative responses have been documented in the HPI. ROS Other: All systems not noted in ROS Statement are negative. Past Medical History Past Medical History: GERD/Reflux, Hypertension, Osteoarthritis (OA), Sleep Apnea/CPAP/BIPAP Additional Past Medical History / Comment(s): barretts esophagus, hiatal hernia, "sciatica like pain" History of Any Multi-Drug Resistant Organisms: None Reported Past Surgical History: Breast Surgery, Cholecystectomy, Joint Replacement, Orthopedic Surgery, Tonsillectomy Additional Past Surgical History / Comment(s): ORIF-left wrist now has a plate, left breast biopsy, surgery to laser uvula for sleep apnea, arthroscopy left shoulder, LT JULIANO-08/2019, Past Anesthesia/Blood Transfusion Reactions: Motion Sickness Additional Past Anesthesia/Blood Transfusion Reaction / Comment(s): "rare motrion sickness", Past Psychological History: Anxiety, Depression Smoking Status: Never smoker Past Alcohol Use History: None Reported Past Drug Use History: None Reported - Past Family History Mother Family Medical History: No Reported History Additional Family Medical History / Comment(s): maternal grandma: had bowel ca Father Family Medical History: Coronary Artery Disease (CAD) General Exam - General Exam Comments Initial Comments: GENERAL: Well-appearing, well-nourished and in no acute distress. HEAD: Atraumatic, normocephalic. EYES: Pupils equal round and reactive to light, extraocular movements intact, sclera anicteric, conjunctiva are normal. ENT: TMs normal, nares patent, oropharynx clear without exudates. Moist mucous membranes. NECK: Normal range of motion, supple without lymphadenopathy or JVD. LUNGS: Breath sounds clear to auscultation bilaterally and equal. No wheezes rales or rhonchi. HEART: Regular rate and rhythm without murmurs, rubs or gallops. ABDOMEN: Soft, nontender, normoactive bowel sounds. No guarding, no rebound. No masses appreciated. : Deferred EXTREMITIES: Pain with palpation of the right lateral hip. It appears to be slightly shorter and and externally rotated when compared to the left. She is neurovascular intact. Recent surgical incision looks clean and dry, no signs of infection. No clubbing or cyanosis. NEUROLOGICAL: Cranial nerves II through XII grossly intact. Normal speech. PSYCH: Normal mood, normal affect. SKIN: Warm, Dry, normal turgor, no rashes or lesions noted. Limitations: no limitations Course Vital Signs 02/29/20 02/29/20 17:40 19:15 Temperature 98.2 F 98.5 F Pulse Rate 86 86 Respiratory 18 16 Rate Blood Pressure 178/79 140/64 O2 Sat by Pulse 99 95 Oximetry Medical Decision Making - Medical Decision Making Patient is a 69-year-old female, status post 2 days out from right JULIANO by Dr. Vega. Patient stepped out from the shower and felt her right hip slip. She did not fall, was able to sit back on her shower chair. She called EMS. X-rays of the right hip reveal an interval periprosthetic fracture with fracture fragment involving the lesser trochanter. No hip dislocation. Patient received fentanyl in the EMS prior to arrival. Her pain has been controlled. Patient will be admitted, accepted by Dr. Muñiz. Preop labs were ordered and are pending at this time. Patient is in agreement with this plan of care. Case discussed with Dr. Quinn. - Lab Data Result diagrams: 02/29/20 19:10 02/29/20 19:10 Disposition Clinical Impression: Closed fracture of lesser trochanter of right femur Disposition: ADMITTED IP TO THIS HOSP Condition: Stable Decision Date: 02/29/20 Decision Time: 18:58
--- NOTE | 2020-02-29 18:36 | XR ---
EXAMINATION TYPE: XR Hip Complete RT DATE OF EXAM: 02/29/2020 CLINICAL HISTORY: Pain after slipping injury. Recent surgery 2 days ago. TECHNIQUE: AP and frogleg views of the right hip are obtained. COMPARISON: Right hip x-ray 2 days ago.. FINDINGS: There is interval periprosthetic fracture with fracture fragment involving the lesser troc hanter noted. No hip joint dislocation. Some interval improvement in subcutaneous air noted. IMPRESSION: As above.
--- NOTE | 2020-02-29 18:38 | XR ---
EXAMINATION TYPE: XR chest 1V DATE OF EXAM: 02/29/2020 COMPARISON: Chest x-ray September 15, 2019. HISTORY: Chest pain. TECHNIQUE: Single frontal view of the chest is obtained. FINDINGS: There is chronic parenchymal changes bilaterally without suspicious new focal air space op acity, pleural effusion, or pneumothorax seen. The cardiac silhouette size is upper limits of normal with atherosclerotic change aortic knob. The osseous structures are intact. IMPRESSION: Chronic changes without acute pulmonary process.
[2020-02-29] MEDS ORDERED: ONDANSETRON 4 MG/2 ML VIAL IVP PRN (18:51)
[2020-02-29] MEDS ORDERED: traMADol 50 MG TAB PO PRN (18:51)
[2020-02-29] MEDS ORDERED: NALOXONE 0.4 MG/ML 1 ML VIAL IV PRN (18:51)
[2020-02-29] MEDS ORDERED: ACETAMINOPHEN TAB 325 MG TAB PO PRN (18:51)
[2020-02-29] MEDS: SODIUM CHLORIDE 0.9% 1,000 ML IV SCH (19:24)
[2020-02-29] MEDS: MORPHINE SULFATE 4 MG/ML SYRINGE IV PRN ×2 (19:24→23:37)
[2020-02-29 19:33] LABS: ALT 98 U/L (4-34); AST 116 U/L (14-36); African American GFR (CKD) >90 (>60 ml/min/1.73 sqM); Albumin 3.8 g/dL (3.5-5.0); Alkaline Phosphatase 156 U/L (38-126); Anion Gap 9 mmol/L; Blood Urea Nitrogen 14 mg/dL (7-17); Calcium 8.9 mg/dL (8.4-10.2); Carbon Dioxide 26 mmol/L (22-30); Chloride 92 mmol/L (98-107); Glucose 147 mg/dL (74-99); Non-African American GFR(CKD) >90 (>60 ml/min/1.73 sqM); Potassium 3.7 mmol/L (3.5-5.1); Sodium 127 mmol/L (137-145); Total Bilirubin 0.6 mg/dL (0.2-1.3); Total Protein 6.4 g/dL (6.3-8.2)
[2020-02-29 19:41] LABS: Basophils % (A) 0 %; Eosinophils # (A) 0.1 k/uL (0-0.7); Eosinophils % (A) 1 %; HCT 32.3 % (34.0-46.0); Lymphocytes # (A) 0.6 k/uL (1.0-4.8); Lymphocytes % (A) 8 %; MCV 85.3 fL (80.0-100.0); Mean Platelet Volume 6.8; Monocytes # (A) 0.7 k/uL (0-1.0); Monocytes % (A) 9 %; Neutrophils # (A) 5.9 k/uL (1.3-7.7); Neutrophils % (A) 78 %; Platelet Count 218 k/uL (150-450); RBC 3.79 m/uL (3.80-5.40); RDW 15.8 % (11.5-15.5); WBC 7.5 k/uL (3.8-10.6)
[2020-02-29 19:49] LABS: INR 0.9 (<1.2); Prothrombin Time 9.4 sec (9.0-12.0)
[2020-02-29 19:51] LABS: Partial Thromboplastin Time 20.7 sec (22.0-30.0)
[2020-02-29] MEDS ORDERED: FUROSEMIDE 20 MG TAB PO PRN (20:40)
[2020-02-29] MEDS: CITALOPRAM HYDROBROMIDE 20 MG TAB PO SCH (21:30)
[2020-02-29] MEDS: PANTOPRAZOLE 40 MG TABLET PO SCH (21:30)
[2020-03-01] MEDS: MORPHINE SULFATE 4 MG/ML SYRINGE IV PRN ×2 (05:26→09:10)
[2020-03-01] MEDS: PANTOPRAZOLE 40 MG TABLET PO SCH ×2 (07:46→20:04)
[2020-03-01] MEDS: LISINOPRIL-HCTZ 10-12.5 MG 1 EACH TAB PO SCH (07:46)
[2020-03-01] MEDS ORDERED: SENNOSIDES 8.6 MG TAB PO PRN (09:00)
--- NOTE | 2020-03-01 09:05 | P.HPOR ---
History of Present Illness H&P Date: 03/01/20 This is a 69-year-old female who is admitted for periprosthetic fracture of the right hip. Patient is status post right total hip arthroplasty on 02/27/[address] Keith Vega. Patient is seen and evaluated at bedside today. Patient states that on 02/29/2020 she slipped when she was getting out of the shower and heard a loud snap in the right hip. Patient states that she then fell and was transferred via EMS to [facility] emergency room. X-rays taken in the emergency room revealed periprosthetic fracture of the right hip. Patient states that she is having pain in the right hip today. Patient denies any fever/chills, numbness, weakness, tingling, abdominal pain, shortness of breath or chest pain. Review of Systems The HPI. Past Medical History Past Medical History: GERD/Reflux, Hypertension, Osteoarthritis (OA), Sleep Apnea/CPAP/BIPAP Additional Past Medical History / Comment(s): barretts esophagus, hiatal hernia, "sciatica like pain" History of Any Multi-Drug Resistant Organisms: None Reported Past Surgical History: Breast Surgery, Cholecystectomy, Joint Replacement, Orthopedic Surgery, Tonsillectomy Additional Past Surgical History / Comment(s): ORIF-left wrist now has a plate, left breast biopsy, surgery to laser uvula for sleep apnea, arthroscopy left shoulder, LT JULIANO-08/2019, Past Anesthesia/Blood Transfusion Reactions: Motion Sickness Additional Past Anesthesia/Blood Transfusion Reaction / Comment(s): "rare motrion sickness", Past Psychological History: Anxiety, Depression Smoking Status: Never smoker Past Alcohol Use History: None Reported Past Drug Use History: None Reported - Past Family History Mother Family Medical History: No Reported History Additional Family Medical History / Comment(s): maternal grandma: had bowel ca Father Family Medical History: Coronary Artery Disease (CAD) Medications and Allergies Home Medications Medication Instructions Recorded Confirmed Type Citalopram Hydrobromide [CeleXA] 40 mg PO HS 01/24/16 02/29/20 History Furosemide [Lasix] 20 mg PO DAILY PRN 09/02/19 02/29/20 History Lisinopril-Hctz 10-12.5 mg 1 each PO DAILY 09/02/19 02/29/20 History [Zestoretic 10-12.5] Meloxicam [Mobic] 7.5 mg PO DAILY 30 Days #30 tab 09/16/19 02/29/20 Rx Aspirin 325 mg PO BID #60 tab 02/28/20 02/29/20 Rx HYDROcodone/APAP 7.5-325MG [[place] 1 - 2 tab PO Q6H PRN #56 tab 02/28/20 02/29/20 Rx 7.5-325] Meloxicam [Mobic] 15 mg PO DAILY 02/29/20 02/29/20 History Omeprazole [PriLOSEC] 40 mg PO BID 02/29/20 02/29/20 History Sennosides [Senokot] 17.2 mg PO DAILY PRN 02/29/20 02/29/20 History Allergies Allergy/AdvReac Type Severity Reaction Status Date / Time No Known Allergies Allergy Verified 02/29/20 18:59 Physical Examination On exam patient is resting comfortably in bed in no acute distress. Surgical dressing is clean, dry and intact. Skin is intact. There is tenderness to palpation over the right hip. Calf is soft and nontender to palpation. Patient has full range of motion of the right foot and ankle. Neurovascular status and circulatory status are intact to the right lower extremity. Exams of the head, neck, bilateral upper extremities and left lower extremity are within normal limits. Results X-rays of the right hip dated 02/29/2020 show: There is interval periprosthetic fracture with fracture fragment involving the lesser trochanter noted. No hip joint dislocation. Some interval improvement in subcutaneous air noted. - Labs Labs: Abnormal Lab Results - Last 24 Hours (Table) 02/29/20 02/29/20 02/29/20 Range/Units 19:10 19:10 19:10 RBC 3.79 L (3.80-5.40) m/uL Hgb 11.0 L (11.4-16.0) gm/dL Hct 32.3 L (34.0-46.0) % RDW 15.8 H (11.5-15.5) % Lymphocytes # 0.6 L (1.0-4.8) k/uL APTT 20.7 L (22.0-30.0) sec Sodium 127 L (137-145) mmol/L Chloride 92 L (98-107) mmol/L Creatinine 0.48 L (0.52-1.04) mg/dL Glucose 147 H (74-99) mg/dL AST 116 H (14-36) U/L ALT 98 H (4-34) U/L Alkaline Phosphatase 156 H (38-126) U/L H & H 02/29/20 Range/Units 19:10 Hgb 11.0 L (11.4-16.0) gm/dL Hct 32.3 L (34.0-46.0) % Coagulation 02/29/20 Range/Units 19:10 INR 0.9 (<1.2) Result Diagrams: 02/29/20 19:10 02/29/20 19:10 Assessment and Plan (1) Periprosthetic fracture around internal prosthetic right hip joint Current Visit: Yes Status: Acute Code(s): M97.01XA - PERIPROSTH FRACTURE AROUND INTERNAL PROSTH R HIP JT, INIT SNOMED Code(s): 752601869 (2) S/P total hip arthroplasty Current Visit: No Status: Acute Code(s): Z96.649 - PRESENCE OF UNSPECIFIED ARTIFICIAL HIP JOINT SNOMED Code(s): 437575709957 Plan: 1. Patient is to be NPO. 2. Nonweightbearing to the right lower extremity. 3. Ice to the right hip as needed. 4. Continue pain control. 5. Appreciate input from medicine. 6. Planning for ORIF of periprosthetic fracture right hip today, 03/01/2020.
[2020-03-01 09:37] LABS: HCT 30.1 % (34.0-46.0); HGB 10.3 gm/dL (11.4-16.0); MCV 85.1 fL (80.0-100.0); Mean Platelet Volume 6.5; Platelet Count 223 k/uL (150-450); RBC 3.54 m/uL (3.80-5.40); RDW 15.5 % (11.5-15.5); WBC 5.1 k/uL (3.8-10.6)
[2020-03-01 10:16] LABS: ALT 73 U/L (4-34); AST 69 U/L (14-36); African American GFR (CKD) >90 (>60 ml/min/1.73 sqM); Alkaline Phosphatase 137 U/L (38-126); Anion Gap 5 mmol/L; Blood Urea Nitrogen 10 mg/dL (7-17); Calcium 8.4 mg/dL (8.4-10.2); Carbon Dioxide 29 mmol/L (22-30); Chloride 97 mmol/L (98-107); Glucose 110 mg/dL (74-99); Non-African American GFR(CKD) >90 (>60 ml/min/1.73 sqM); Potassium 3.4 mmol/L (3.5-5.1); Sodium 131 mmol/L (137-145); Total Bilirubin 0.4 mg/dL (0.2-1.3); Total Protein 5.7 g/dL (6.3-8.2)
[2020-03-01] MEDS ORDERED: Potassium Replacement Protocol 1 EACH MISC MISCELLANE PRN (10:48)
[2020-03-01 11:02] LABS: Eosinophils # (M) 0.41 k/uL (0-0.7); Lymphocytes # (M) 1.17 k/uL (1.0-4.8); Monocytes # (M) 0.36 k/uL (0-1.0); Neutrophils # (M) 3.16 k/uL (1.3-7.7); Neutrophils % (M) 62 %; Nucleated Red Blood Cells 0 /100 WBC (0-0); Total Cells Counted 100
--- NOTE | 2020-03-01 11:06 | P.CONS ---
History of Present Illness - History of Present Illness This is a pleasant 69 years old female with past medical history of hypertens ion, GERD, osteoarthritis, sleep apnea on CPAP/BiPAP, Sosa's esophagus/hiatal hernia, chronic back pain. She was admitted for periprosthetic fracture of the right hip and she is planned to go for surgery today on 03/01 She had recent hip surgery for arthritic changes last week It happens in the shower when she was trying to get out she slipped without actually falling and heard a snap in the right hip, followed by a fall. Patient can move toes and feel sensation in her extremities Patient denies chest pain, no dyspnea, no dizziness or syncope. No weakness or numbness in extremities. No coughing. No abdominal pain, no change in urine or bowel habits. She denies smoking, alcohol or illicit drugs Stating that she did not smoke. She confirms using CPAP machine at home which is at bedside currently and she follows up with sleep study doctor as an outpatient. Vitals are stable and she saturating 95% on room air. Hemoglobin 10.3, sodium 127, 131, potassium 3.4. Creatinine normal 0.4, liver enzymes slightly elevated and trending down with AST 69 and ALT 73 and bili are within normal 0.4. chest x-ray:Physical metastases as changes with no acute recess. Right hip x-ray showing periprosthetic fracture Review of Systems CONSTITUTIONAL: No fever, no malaise, no fatigue. HEENT: No recent visual problems or hearing problems. Denied any sore throat. CARDIOVASCULAR: No orthopnea, PND, no palpitations, no syncope. PULMONARY: No shortness of breath, no cough, no hemoptysis. GASTROINTESTINAL: No diarrhea, no nausea, no vomiting, no abdominal pain. Normoactive bowel sounds. NEUROLOGICAL: No headaches, no weakness, no numbness. HEMATOLOGICAL: Denies any bleeding or petechiae. GENITOURINARY: Denies any burning micturition, frequency, or urgency. ENDOCRINE: Denies any polyuria or polydipsia. Past Medical History Past Medical History: GERD/Reflux, Hypertension, Osteoarthritis (OA), Sleep Apnea/CPAP/BIPAP Additional Past Medical History / Comment(s): barretts esophagus, hiatal hernia, "sciatica like pain" History of Any Multi-Drug Resistant Organisms: None Reported Past Surgical History: Breast Surgery, Cholecystectomy, Joint Replacement, Orthopedic Surgery, Tonsillectomy Additional Past Surgical History / Comment(s): ORIF-left wrist now has a plate, left breast biopsy, surgery to laser uvula for sleep apnea, arthroscopy left shoulder, LT JULIANO-08/2019, Past Anesthesia/Blood Transfusion Reactions: Motion Sickness Additional Past Anesthesia/Blood Transfusion Reaction / Comm: "rare motrion sickness", Past Psychological History: Anxiety, Depression Smoking Status: Never smoker Past Alcohol Use History: None Reported Past Drug Use History: None Reported - Past Family History Mother Family Medical History: No Reported History Additional Family Medical History / Comment(s): maternal grandma: had bowel ca Father Family Medical History: Coronary Artery Disease (CAD) Medications and Allergies Home Medications Medication Instructions Recorded Confirmed Type Citalopram Hydrobromide [CeleXA] 40 mg PO HS 01/24/16 02/29/20 History Furosemide [Lasix] 20 mg PO DAILY PRN 09/02/19 02/29/20 History Lisinopril-Hctz 10-12.5 mg 1 each PO DAILY 09/02/19 02/29/20 History [Zestoretic 10-12.5] Meloxicam [Mobic] 7.5 mg PO DAILY 30 Days #30 tab 09/16/19 02/29/20 Rx Aspirin 325 mg PO BID #60 tab 02/28/20 02/29/20 Rx HYDROcodone/APAP 7.5-325MG [[place] 1 - 2 tab PO Q6H PRN #56 tab 02/28/20 02/29/20 Rx 7.5-325] Meloxicam [Mobic] 15 mg PO DAILY 02/29/20 02/29/20 History Omeprazole [PriLOSEC] 40 mg PO BID 02/29/20 02/29/20 History Sennosides [Senokot] 17.2 mg PO DAILY PRN 02/29/20 02/29/20 History Allergies Allergy/AdvReac Type Severity Reaction Status Date / Time No Known Allergies Allergy Verified 02/29/20 18:59 Physical Exam Vitals: Vital Signs Temp Pulse Pulse Pulse Resp BP BP 03/01/20 07:46 83 18 03/01/20 07:00 99.5 F 83 18 149/69 03/01/20 04:00 18 03/01/20 03:45 98.5 F 73 132/70 02/29/20 23:00 18 02/29/20 20:20 99.5 F 86 19 147/74 02/29/20 19:15 98.5 F 86 16 140/64 02/29/20 17:40 98.2 F 86 18 178/79 Pulse Ox 03/01/20 07:46 03/01/20 07:00 95 03/01/20 04:00 03/01/20 03:45 96 02/29/20 23:00 02/29/20 20:20 97 02/29/20 19:15 95 02/29/20 17:40 99 Intake and Output 02/29/20 03/01/20 03/01/20 22:59 06:59 14:59 Intake Total 200 Output Total 200 700 Balance 0 -700 Intake: Oral 200 Output: Urine 200 700 Other: Voiding Method Indwelling Catheter Indwelling Catheter Weight 108.862 kg -GENERAL: The patient is alert and oriented x3, not in any acute distress. Morbidly obese HEENT: Pupils are round and equally reacting to light. EOMI. No scleral icterus. No conjunctival pallor. Normocephalic, atraumatic. No pharyngeal erythema. No thyromegaly. CARDIOVASCULAR: S1 and S2 present. No murmurs, rubs, or gallops. PULMONARY: Chest is clear to auscultation, no wheezing or crackles. ABDOMEN: Soft, nontender, nondistended, normoactive bowel sounds. No palpable organomegaly. Stovall catheter in place -MUSCULOSKELETAL: No joint swelling or deformity. The right hip area tenderness EXTREMITIES: No cyanosis, clubbing, or pedal edema. NEUROLOGICAL: Gross neurological examination did not reveal any focal deficits. SKIN: No rashes. No petechiae Results CBC & Chem 7: 03/01/20 08:51 03/01/20 09:18 Labs: Abnormal Lab Results - Last 24 Hours (Table) 02/29/20 02/29/20 02/29/20 Range/Units 19:10 19:10 19:10 RBC 3.79 L (3.80-5.40) m/uL Hgb 11.0 L (11.4-16.0) gm/dL Hct 32.3 L (34.0-46.0) % RDW 15.8 H (11.5-15.5) % Lymphocytes # 0.6 L (1.0-4.8) k/uL APTT 20.7 L (22.0-30.0) sec Sodium 127 L (137-145) mmol/L Potassium (3.5-5.1) mmol/L Chloride 92 L (98-107) mmol/L Creatinine 0.48 L (0.52-1.04) mg/dL Glucose 147 H (74-99) mg/dL AST 116 H (14-36) U/L ALT 98 H (4-34) U/L Alkaline Phosphatase 156 H (38-126) U/L Total Protein (6.3-8.2) g/dL Albumin (3.5-5.0) g/dL 03/01/20 03/01/20 Range/Units 08:51 09:18 RBC 3.54 L (3.80-5.40) m/uL Hgb 10.3 L (11.4-16.0) gm/dL Hct 30.1 L (34.0-46.0) % RDW (11.5-15.5) % Lymphocytes # (1.0-4.8) k/uL APTT (22.0-30.0) sec Sodium 131 L (137-145) mmol/L Potassium 3.4 L (3.5-5.1) mmol/L Chloride 97 L (98-107) mmol/L Creatinine 0.42 L (0.52-1.04) mg/dL Glucose 110 H (74-99) mg/dL AST 69 H (14-36) U/L ALT 73 H (4-34) U/L Alkaline Phosphatase 137 H (38-126) U/L Total Protein 5.7 L (6.3-8.2) g/dL Albumin 3.0 L (3.5-5.0) g/dL Assessment and Plan Assessment: Right hip periprosthetic fracture planned for surgery on 02/19 mildly elevated liver enzymes trending down Hypertension GERD with history of Sosa's ossificans Sleep apnea on CPAP/BiPAP Morbid obesity Chronic back pain Morbid obesity with BMI 43.9 Plan: this is a pleasant 69 years old female who presents with right periprosthetic Fracture and planned for hip surgery today. Patient is with at some risk from going to surgery however there is no absolute contraindication for the surgery, and her hip needs to be fixed. Continue with Stovall catheter, place and emergency room Labs and medication were reviewed.. Continue same treatment. Continue with symptomatic treatment. Resume home medication. Monitor lytes and vitals. DVT and GI prophylaxis. Further recommendations of the clinical course of the patient DVT prophylaxis and pain management as per primary surgical team PT/OT: Pending Prognosis is guarded Thank you for consulting us, please feel free to contact us for any further que stion or clarification
[2020-03-01] MEDS ORDERED: LACTATED RINGERS 1,000 ML IV ONE ×2 (12:39→17:50)
[2020-03-01] MEDS ORDERED: ceFAZolin 3 GM in SODIUM CHLORIDE 0.9% 100 ML IVPB ONE (12:57)
[2020-03-01] MEDS ORDERED: ONDANSETRON 4 MG/2 ML VIAL IVP ONE (13:14)
[2020-03-01] MEDS ORDERED: DEXAMETHASONE SOD PHOSPHATE 10 MG/ML 1 ML VIAL IV ONE (13:14)
[2020-03-01] MEDS ORDERED: DIAZEPAM 5 MG TAB PO PRN (13:25)
[2020-03-01] MEDS ORDERED: HYDROcodone/APAP 7.5-325MG 1 EACH TAB PO PRN (13:25)
[2020-03-01] MEDS ORDERED: hydrOXYzine PAMOATE 25 MG CAP PO PRN (13:25)
[2020-03-01] MEDS ORDERED: MAGNESIUM HYDROXIDE 2,400 MG/10 ML CUP PO PRN (13:25)
[2020-03-01] MEDS ORDERED: NALOXONE 0.4 MG/ML 1 ML VIAL IV PRN (13:25)
[2020-03-01] MEDS ORDERED: fentaNYL (PF) 50 MCG/ML 2 ML AMP ONE (13:45)
[2020-03-01] MEDS ORDERED: GLYCOPYRROLATE 0.2 MG/ML 2 ML VIAL ONE (13:45)
[2020-03-01] MEDS ORDERED: MIDAZOLAM 2 MG/2 ML VIAL ONE (13:45)
[2020-03-01] MEDS ORDERED: NEOSTIGMINE 1 MG/ML 10 ML VIAL ONE (13:45)
[2020-03-01] MEDS ORDERED: PROPOFOL 10 MG/ML 20 ML VIAL IV ONE (13:45)
[2020-03-01] MEDS ORDERED: HYDROmorphone (PF) 1 MG/ML ONE (13:45)
[2020-03-01] MEDS ORDERED: LIDOCAINE 1% INJ 10MG/ML (20 ML MDV) ONE (13:45)
[2020-03-01] MEDS ORDERED: ROCURONIUM BROMIDE 10 MG/ML 5 ML VIAL IV ONE (13:45)
[2020-03-01] MEDS ORDERED: SUCCINYLCHOLINE CHLORIDE 100 MG/5 ML SYR IV ONE (13:45)
--- NOTE | 2020-03-01 15:49 | P.OP ---
Date of Procedure: 03/01/20 Preoperative Diagnosis: Displaced Periprosthetic proximal femur fracture right total hip arthroplasty Postoperative Diagnosis: Displaced Periprosthetic proximal femur fracture right total hip arthroplasty Procedure(s) Performed: Open reduction and internal fixation periprosthetic fracture right proximal femur Implants: Reji cable ready cables 5 Anesthesia: GETA Surgeon: Keith Vega Retail Clerk #1: Yolanda Ram Estimated Blood Loss (ml): 500 Pathology: none sent Condition: stable Disposition: PACU Indications for Procedure: This is a 69-year-old female that had a right total hip arthroplasty performed on 02/27/2020. She was discharged home the next day and was doing very well. Later in the day on Thursday she was coming out of the shower and apparently slipped and felt a crack in her right hip. She was brought to the hospital emergency room and diagnosed with a periprosthetic fracture of her right proximal femur. She is subsequently admitted and after discussing the surgical nonsurgical treatment options with her at length, I recommended open reduction and internal fixation of the periprosthetic proximal femur fracture. Informed consent was obtained. Operative Findings: Operative findings are consistent with a displaced periprosthetic fracture of the right proximal femur. Description of Procedure: The patient was seen in the preoperative area consent was reviewed and the operative site was marked with a skin marker. Patient was then brought to the operating room and given 3 g of Ancef intravenously. A general anesthetic was administered by the anesthesia department and the patient was then placed on the [place] table. The right hip was then prepped and draped in usual sterile fashion. A universal timeout was then performed which confirmed the patient's name, surgical site, ALLERGIES, and consent. Prior incision was utilized with the subcuticular sutures cut and the wound was then opened. Was then dissected through the prior tissue plane down to the right hip. The right hip was exposed and the displaced periprosthetic fracture right proximal femurs visualized. Fracture was found to be spiral in nature and displaced. Next using the cable ready guide system, cables were then passed around the fracture site. The cables are more tightened order to reduce the fracture. The fracture would not completely reduced so the hip was gently dislocated and the femoral component was extracted just enough for the fracture to be reduced. All the cables were then tightened in order to reduce the fracture. The femoral component was then reinserted to the appropriate level. Fluoroscopic x-rays confirmed reduction of the fracture. After the cables were then placed, the hip was taken through range of motion and was stable and the fracture was stable with the cables in place. The wound was then irrigated with antibiotic solution closed with 0 strata fix for the fascia 3-0 strata fix for the subcu taste tissue and Dermabond for the skin and a silver impregnated dressing was then placed. Patient was then transferred recovery room in stable condition. The certified ophthalmic assistant MICHAEL Wagoner was required due the complexity of surgery the need for skilled human services assistant
--- NOTE | 2020-03-01 16:32 | XR ---
EXAMINATION TYPE: XR Hip Limited RT, 2 views DATE OF EXAM: 03/01/2020 Comparison: None Clinical History: 69-year-old female OPEN REDUCT RIGHT HIP Findings: 2 intraoperative fluoroscopic images during open reduction of the right hip. Right hip total arthropl asty is demonstrated with multiple cerclage wires around the proximal femur. Impression: 2 intraoperative fluoroscopic images as above.
--- NOTE | 2020-03-01 17:02 | XR ---
EXAMINATION TYPE: XR Hip Limited RT DATE OF EXAM: 03/01/2020 COMPARISON: Yesterday HISTORY: Pain TECHNIQUE: 2 views FINDINGS: There is a right hip prosthesis. Components are in anatomic position. IMPRESSION: There is revision of the right hip prosthesis compared to yesterday with wire sutures fix ating the large chip fracture of the lesser trochanter in anatomic position.
[2020-03-01] MEDS: SODIUM CHLORIDE 0.9% 1,000 ML IV SCH ×2 (19:39)
[2020-03-01] MEDS: ceFAZolin 3 GM in SODIUM CHLORIDE 0.9% 100 ML IVPB SCH (19:39)
[2020-03-01] MEDS: CITALOPRAM HYDROBROMIDE 20 MG TAB PO SCH (20:04)
[2020-03-01] MEDS: amLODIPine 5 MG TAB PO SCH (20:04)
[2020-03-01] MEDS: SENNOSIDES-DOCUSATE SODIUM 1 EACH TAB PO SCH (20:05)
[2020-03-01] MEDS: HYDROcodone/APAP 7.5-325MG 1 EACH TAB PO PRN (20:05)
[2020-03-02] MEDS: ceFAZolin 3 GM in SODIUM CHLORIDE 0.9% 100 ML IVPB SCH (00:25)
[2020-03-02] MEDS: SODIUM CHLORIDE 0.9% 1,000 ML IV SCH ×4 (03:45→21:04)
[2020-03-02] MEDS: HYDROcodone/APAP 7.5-325MG 1 EACH TAB PO PRN ×4 (03:46→22:11)
[2020-03-02 07:17] LABS: HCT 29.3 % (34.0-46.0); MCH 29.4 pg (25.0-35.0); MCV 86.5 fL (80.0-100.0); Platelet Count 292 k/uL (150-450); RBC 3.39 m/uL (3.80-5.40); RDW 15.7 % (11.5-15.5); WBC 5.6 k/uL (3.8-10.6)
[2020-03-02 07:26] LABS: ALT 50 U/L (4-34); AST 56 U/L (14-36); African American GFR (CKD) >90 (>60 ml/min/1.73 sqM); Albumin 2.9 g/dL (3.5-5.0); Alkaline Phosphatase 149 U/L (38-126); Anion Gap 6 mmol/L; Bilirubin, Delta 0.1 mg/dL (0.0-0.2); Bilirubin,Unconjugated 0.4 mg/dL (0.0-1.1); Blood Urea Nitrogen 11 mg/dL (7-17); Calcium 8.3 mg/dL (8.4-10.2); Carbon Dioxide 27 mmol/L (22-30); Chloride 94 mmol/L (98-107); Glucose 114 mg/dL (74-99); Magnesium 1.8 mg/dL (1.6-2.3); Non-African American GFR(CKD) >90 (>60 ml/min/1.73 sqM); Potassium 3.8 mmol/L (3.5-5.1); Sodium 127 mmol/L (137-145); Total Bilirubin 0.5 mg/dL (0.2-1.3); Total Protein 5.4 g/dL (6.3-8.2)
--- NOTE | 2020-03-02 08:32 | P.PN ---
Subjective Progress Note Date: 03/02/20 This is a 70-year-old female who is status post open reduction and internal fixation periprosthetic fracture right proximal femur. This is postoperative day #1 and patient seen and evaluated at bedside. Patient states that her pain is well-controlled, but she does notice pain with small movements of the right lower extremity. Patient denies any new complaints today. Patient denies any fever/chills, numbness, weakness, tingling, abdominal pain, shortness of breath or chest pain. Objective - Vital Signs Vital signs: Vital Signs Temp 98.8 F 03/02/20 07:00 Pulse 71 03/02/20 07:00 Resp 18 03/02/20 07:00 BP 107/63 03/02/20 07:00 Pulse Ox 92 L 03/02/20 07:00 Intake & Output 03/01/20 03/02/20 03/02/20 18:59 06:59 18:59 Intake Total 950 Output Total 850 400 Balance 100 -400 Weight 108.862 kg Intake: IV 950 Output: Urine 350 400 Estimated Blood Loss 500 Other: Voiding Method Indwelling Catheter Indwelling Catheter - Exam Vital signs are stable. Patient is in no acute distress and is alert and oriented 3. Right lower extremity exam: Calf is soft and nontender to palpation. Dressing is clean, dry, and intact. Dorsalis pedis pulse is 2+. Patient has full foot and ankle motion without pain or difficulty. Neurovascular status and circulatory status are intact. - Labs CBC & Chem 7: 03/02/20 05:59 03/02/20 05:59 Labs: Abnormal Lab Results - Last 24 Hours (Table) 03/01/20 03/01/20 03/02/20 Range/Units 08:51 09:18 05:59 RBC 3.54 L 3.39 L (3.80-5.40) m/uL Hgb 10.3 L 10.0 L (11.4-16.0) gm/dL Hct 30.1 L 29.3 L (34.0-46.0) % RDW 15.7 H (11.5-15.5) % Sodium 131 L (137-145) mmol/L Potassium 3.4 L (3.5-5.1) mmol/L Chloride 97 L (98-107) mmol/L Creatinine 0.42 L (0.52-1.04) mg/dL Glucose 110 H (74-99) mg/dL Calcium (8.4-10.2) mg/dL AST 69 H (14-36) U/L ALT 73 H (4-34) U/L Alkaline Phosphatase 137 H (38-126) U/L Total Protein 5.7 L (6.3-8.2) g/dL Albumin 3.0 L (3.5-5.0) g/dL 03/02/20 Range/Units 05:59 RBC (3.80-5.40) m/uL Hgb (11.4-16.0) gm/dL Hct (34.0-46.0) % RDW (11.5-15.5) % Sodium 127 L (137-145) mmol/L Potassium (3.5-5.1) mmol/L Chloride 94 L (98-107) mmol/L Creatinine 0.42 L (0.52-1.04) mg/dL Glucose 114 H (74-99) mg/dL Calcium 8.3 L (8.4-10.2) mg/dL AST 56 H (14-36) U/L ALT 50 H (4-34) U/L Alkaline Phosphatase 149 H (38-126) U/L Total Protein 5.4 L (6.3-8.2) g/dL Albumin 2.9 L (3.5-5.0) g/dL Assessment and Plan Assessment: Status post open reduction and internal fixation of periprosthetic fracture right proximal femur (1) Periprosthetic fracture around internal prosthetic right hip joint Current Visit: Yes Status: Acute Code(s): M97.01XA - PERIPROSTH FRACTURE AROUND INTERNAL PROSTH R HIP JT, INIT SNOMED Code(s): 197922075 (2) S/P total hip arthroplasty Current Visit: No Status: Acute Code(s): Z96.649 - PRESENCE OF UNSPECIFIED ARTIFICIAL HIP JOINT SNOMED Code(s): 601229884271 Plan: 1. Continue routine postoperative care and pain control. 2. Strictly nonweightbearing to the right lower extremity. 3. Xarelto for anticoagulation. 4. Dressing to stay intact for 10 days postoperatively. May shower with dressing in place. 5. Appreciate input from medicine. 6. Physical therapy for mobilization. 7. Likely discharge to rehab on Thursday.
[2020-03-02 08:34] LABS: Eosinophils # (M) 0.17 k/uL (0-0.7); Lymphocytes # (M) 1.01 k/uL (1.0-4.8); Monocytes # (M) 1.01 k/uL (0-1.0); Neutrophils # (M) 3.42 k/uL (1.3-7.7); Neutrophils % (M) 61 %; Nucleated Red Blood Cells 0 /100 WBC (0-0); Total Cells Counted 100
[2020-03-02 08:35] LABS: Poikilocytosis (M) Present
[2020-03-02] MEDS: MORPHINE SULFATE 4 MG/ML SYRINGE IV PRN ×3 (08:38→18:25)
[2020-03-02] MEDS: RIVAROXABAN 10 MG TAB PO SCH (08:38)
[2020-03-02] MEDS: amLODIPine 5 MG TAB PO SCH (08:38)
[2020-03-02] MEDS: PANTOPRAZOLE 40 MG TABLET PO SCH ×2 (08:38→20:07)
[2020-03-02] MEDS: LISINOPRIL-HCTZ 10-12.5 MG 1 EACH TAB PO SCH (08:38)
--- NOTE | 2020-03-02 10:08 | FL ---
Fluoroscopy HISTORY: Open reduction right hip 44 seconds fluoroscopy time supplied to the referring clinician. 2 intraoperative C-arm images docum ent the procedure. See dictated report from orthopedic surgery.
--- NOTE | 2020-03-02 14:38 | P.PN ---
Subjective This is a pleasant 69 years old female with past medical history of hypertension, GERD, osteoarthritis, sleep apnea on CPAP/BiPAP, Sosa's esophag us/hiatal hernia, chronic back pain. She was admitted for periprosthetic fracture of the right hip and she is planned to go for surgery today on 03/01 She had recent hip surgery for arthritic changes last week It happens in the shower when she was trying to get out she slipped without actually falling and heard a snap in the right hip, followed by a fall. Patient can move toes and feel sensation in her extremities Patient denies chest pain, no dyspnea, no dizziness or syncope. No weakness or numbness in extremities. No coughing. No abdominal pain, no change in urine or bowel habits. She denies smoking, alcohol or illicit drugs Stating that she did not smoke. She confirms using CPAP machine at home which is at bedside currently and she follows up with sleep study doctor as an outpatient. Vitals are stable and she saturating 95% on room air. Hemoglobin 10.3, sodium 127, 131, potassium 3.4. Creatinine normal 0.4, liver enzymes slightly elevated and trending down with AST 69 and ALT 73 and bili are within normal 0.4. chest x-ray:Physical metastases as changes with no acute recess. Right hip x-ray showing periprosthetic fracture 03/02/2020 she is a status post Open reduction and internal fixation periprosthetic fracture right proximal femur. His postop day #1. Pain is controlled. Tolerating that well. No vomiting. No bowel movement YET.sodium is 127, potassium 3.8, creatinine is normal.hemoglobin is stable at 10.0. Liver enzymes trending down. patient is started on Xarelto by primary team. Plan for her to go to rehab on Thursday currently she is on normal saline at 65 Stovall to per hour Objective - Vital Signs Vital signs: Vital Signs Temp 98.8 F 03/02/20 07:00 Pulse 71 03/02/20 08:00 Resp 18 03/02/20 08:00 BP 107/63 03/02/20 07:00 Pulse Ox 92 L 03/02/20 07:00 Intake & Output 03/01/20 03/02/20 03/02/20 18:59 06:59 18:59 Intake Total 950 455 Output Total 850 400 Balance 100 -400 455 Weight 108.862 kg Intake: IV 950 Intake, IV Titration 455 Amount Sodium Chloride 0.9% 1, 455 000 ml @ 65 mls/hr IV . [id number] [facility] Rx#:[id number] Output: Urine 350 400 Estimated Blood Loss 500 Other: Voiding Method Indwelling Catheter Indwelling Catheter Indwelling Catheter - Exam GENERAL: The patient is alert and oriented x3, not in any acute distress. Well developed, well nourished. HEENT: Pupils are round and equally reacting to light. EOMI. No scleral icterus. No conjunctival pallor. Normocephalic, atraumatic. No pharyngeal erythema. No thyromegaly. CARDIOVASCULAR: S1 and S2 present. No murmurs, rubs, or gallops. PULMONARY: Chest is clear to auscultation, no wheezing or crackles. ABDOMEN: Soft, nontender, nondistended, normoactive bowel sounds. No palpable organomegaly. MUSCULOSKELETAL: No joint swelling or deformity. -EXTREMITIES: No cyanosis, clubbing, or pedal edema. right hip wound is clean and dry, no discharge. Dressing is in place NEUROLOGICAL: Gross neurological examination did not reveal any focal deficits. SKIN: No rashes. no petechiae. - Labs CBC & Chem 7: 03/02/20 05:59 03/02/20 05:59 Labs: Abnormal Lab Results - Last 24 Hours (Table) 03/02/20 03/02/20 Range/Units 05:59 05:59 RBC 3.39 L (3.80-5.40) m/uL Hgb 10.0 L (11.4-16.0) gm/dL Hct 29.3 L (34.0-46.0) % RDW 15.7 H (11.5-15.5) % Monocytes # (Manual) 1.01 H (0-1.0) k/uL Sodium 127 L (137-145) mmol/L Chloride 94 L (98-107) mmol/L Creatinine 0.42 L (0.52-1.04) mg/dL Glucose 114 H (74-99) mg/dL Calcium 8.3 L (8.4-10.2) mg/dL AST 56 H (14-36) U/L ALT 50 H (4-34) U/L Alkaline Phosphatase 149 H (38-126) U/L Total Protein 5.4 L (6.3-8.2) g/dL Albumin 2.9 L (3.5-5.0) g/dL Assessment and Plan Assessment: Right hip periprosthetic fracture planned for surgery on 02/19 . Status post open reduction and internal fixation of the proximal femur fracture mildly elevated liver enzymes trending down Hypertension GERD with history of Sosa's ossificans Sleep apnea on CPAP/BiPAP Morbid obesity Chronic back pain Morbid obesity with BMI 43.9 Plan: this is a pleasant 69 years old female who presents with right periprosthetic Fracture and status post open reduction internal fixation. Pain management and DVT prophylaxis per primary team. Continue with normal saline and with her sodium level Continue with Stovall catheter, placed in emergency room Labs and medication were reviewed.. Continue same treatment. Continue with symptomatic treatment. Resume home medication. Monitor lytes and vitals. DVT and GI prophylaxis. Further recommendations of the clinical course of the patient DVT prophylaxis and pain management as per primary surgical team PT/OT: Pending Prognosis is guarded Thank you for consulting us, please feel free to contact us for any further question or clarification
[2020-03-02] MEDS: CITALOPRAM HYDROBROMIDE 20 MG TAB PO SCH (20:07)
[2020-03-02] MEDS: SENNOSIDES-DOCUSATE SODIUM 1 EACH TAB PO SCH (20:07)
[2020-03-03] MEDS: HYDROcodone/APAP 7.5-325MG 1 EACH TAB PO PRN ×4 (06:01→21:45)
[2020-03-03] MEDS: LISINOPRIL-HCTZ 10-12.5 MG 1 EACH TAB PO SCH (08:52)
[2020-03-03] MEDS: amLODIPine 5 MG TAB PO SCH (08:52)
[2020-03-03] MEDS: PANTOPRAZOLE 40 MG TABLET PO SCH (08:52)
[2020-03-03] MEDS: RIVAROXABAN 10 MG TAB PO SCH (08:52)
--- NOTE | 2020-03-03 10:24 | P.PN ---
Subjective Progress Note Date: 03/03/20 This patient is 70-year-old female that is status-post open reduction and internal fixation periprosthetic fracture right proximal femur. Today's postoperative day #2. The patient is examined bedside. Patient states the pain in her right hip is currently well-controlled. She states the pain is improved compared to yesterday. She has not been up with physical therapy yet today. She states she did work with therapy yesterday and she is remaining nonweightbearing on the right lower extremity. She is planning to discharge to rehab on Thursday. Stovall catheter was removed early this morning. She has not yet had a bowel movement, she denies abdominal pain. She states overall she feels well. She denies chest pain, shortness breath, nausea, vomiting, fevers, chills. No new complaints today. Vital signs stable. Objective - Vital Signs Vital signs: Vital Signs Temp 97.6 F 03/03/20 07:05 Pulse 78 03/03/20 07:05 Resp 17 03/03/20 07:05 BP 164/69 03/03/20 07:05 Pulse Ox 93 L 03/03/20 07:05 Intake & Output 03/02/20 03/03/20 03/03/20 18:59 06:59 18:59 Intake Total 455 180 Output Total 700 1100 600 Balance -245 -920 -600 Intake: Intake, IV Titration 455 180 Amount Sodium Chloride 0.9% 1, 180 000 ml @ 60 mls/hr IV . [id number] [facility] Rx#:[id number] Sodium Chloride 0.9% 1, 455 000 ml @ 65 mls/hr IV . [id number] [facility] Rx#:[id number] Output: Urine 700 1100 600 Uretheral (Stovall) 300 Other: Voiding Method Indwelling Catheter Indwelling Catheter - Exam On examination, the patient is lying in bed in no apparent distress. She is alert and oriented 3. On inspection of the right hip, there is a clean, dry, intact dressing in place. There is no drainage or bleeding through the dr essing. There is ecchymosis of the right hip. The thigh is soft and compressible. There is no significant pain on palpation of the right hip. Patient has good strength and range of motion of the right ankle. Motor and sensory function intact of the right lower extremity. Right lower extremity is warm and well-perfused with brisk capillary refill distally. There is no swelling or erythema of the calves bilaterally. - Labs CBC & Chem 7: 03/02/20 05:59 03/02/20 05:59 Assessment and Plan Assessment: Status-post open reduction and internal fixation periprosthetic fracture right proximal femur on 03/01/20. Post-operative day #2. Plan: - Strict nonweightbearing on the right lower extremity. Up with assistance, up with a walker. - Physical therapy for gait and balance training. - Keep Optifoam dressing in place for 10 days. May shower dressing in place. - Internal medicine for perioperative medical management. - Xarelto for DVT prophylaxis. - Continue pain management as needed. - Anticipate discharge to rehab Thursday.
[2020-03-03] MEDS: SODIUM CHLORIDE 0.9% 1,000 ML IV SCH ×4 (12:25→22:04)
[2020-03-03] MEDS ORDERED: OMEPRAZOLE PO SCH (17:30)
[2020-03-03] MEDS: OMEPRAZOLE 20 MG PO SCH (17:33)
[2020-03-03] MEDS: MORPHINE SULFATE 4 MG/ML SYRINGE IV PRN (19:20)
[2020-03-03] MEDS: CITALOPRAM HYDROBROMIDE 20 MG TAB PO SCH (19:20)
[2020-03-03] MEDS: SENNOSIDES-DOCUSATE SODIUM 1 EACH TAB PO SCH (19:20)
--- NOTE | 2020-03-03 22:22 | PN ---
PROGRESS NOTE DATE OF SERVICE: 03/03/2020 This 70-year-old woman who was admitted with right hip periprosthetic fracture underwent ORIF of the fracture. The patient is closely monitored. ECF rehab is being planned. No chest pain. No palpitations. No fever. PHYSICAL EXAMINATION: Alert and oriented x3. Pulse 86, blood pressure 116/70, respiration 20, temperature 98.4, pulse ox 98% on room air. HEENT: Conjunctivae normal. Oral mucosa moist. NECK: No jugular venous distention. No lymph node enlargement. CARDIOVASCULAR: S1, S2. RESPIRATORY: Diminished breath sounds at the bases. No rhonchi, no crackles. ABDOMEN: Soft, nontender. LEGS: Status post right hip surgery. NERVOUS SYSTEM: No focal deficits. LABS: WBC 5.2, hemoglobin is 10, sodium 127, potassium 3.8 and AST is 56, ALT is 50. ASSESSMENT: 1. Status post ORIF of the right hip periprosthetic fracture. 2. History of recent ORIF of the right hip. 3. Mildly elevated liver enzymes, trending down. 4. Hypertension. 5. Gastroesophageal reflux disease. 6. Sleep apnea. 7. Morbid obesity. 8. History of chronic back pain. 9. Degenerative joint disease. 10.Hyponatremia. 11.Mild hypokalemia. 12.Anemia, normocytic anemia of chronic disease. 13.FULL CODE. RECOMMENDATIONS AND DISCUSSION: In this 70-year-old woman who presented with multiple complex medical issues, we will monitor the patient closely, continue the current management and symptomatic treatment. Otherwise, I would recommend repeat labs and closely monitor. PT/OT evaluation, possible ECF rehab. Further recommendations to follow. MMODL / IJN: [id number] /
[2020-03-04] MEDS: HYDROcodone/APAP 7.5-325MG 1 EACH TAB PO PRN ×3 (05:20→16:36)
[2020-03-04 07:43] LABS: HCT 26.6 % (34.0-46.0); MCH 27.6 pg (25.0-35.0); MCHC 32.1 g/dL (31.0-37.0); Mean Platelet Volume 6.8; Platelet Count 272 k/uL (150-450); RBC 3.09 m/uL (3.80-5.40); RDW 15.7 % (11.5-15.5); WBC 4.6 k/uL (3.8-10.6)
[2020-03-04 07:53] LABS: HGB 8.5 gm/dL (11.4-16.0)
[2020-03-04 08:13] LABS: African American GFR (CKD) >90 (>60 ml/min/1.73 sqM); Anion Gap 5 mmol/L; Blood Urea Nitrogen 10 mg/dL (7-17); Calcium 8.2 mg/dL (8.4-10.2); Carbon Dioxide 31 mmol/L (22-30); Chloride 90 mmol/L (98-107); Glucose 123 mg/dL (74-99); Non-African American GFR(CKD) >90 (>60 ml/min/1.73 sqM); Potassium 3.8 mmol/L (3.5-5.1); Sodium 126 mmol/L (137-145)
[2020-03-04] MEDS: RIVAROXABAN 10 MG TAB PO SCH (09:10)
[2020-03-04] MEDS: LISINOPRIL 10 MG TAB PO SCH (09:11)
[2020-03-04] MEDS: OMEPRAZOLE 20 MG PO SCH ×2 (09:11→17:37)
[2020-03-04] MEDS: amLODIPine 5 MG TAB PO SCH (09:11)
[2020-03-04 09:46] LABS: Basophils # (M) 0.05 k/uL (0-0.2); Eosinophils # (M) 0.28 k/uL (0-0.7); Lymphocytes # (M) 0.64 k/uL (1.0-4.8); Monocytes # (M) 0.41 k/uL (0-1.0); Neutrophils # (M) 3.22 k/uL (1.3-7.7); Neutrophils % (M) 70 %; Nucleated Red Blood Cells 0 /100 WBC (0-0); Total Cells Counted 100
--- NOTE | 2020-03-04 10:26 | P.PN ---
Subjective Progress Note Date: 03/04/20 This patient is 70-year-old female that is status-post open reduction and internal fixation periprosthetic fracture right proximal femur on 03/01/20. Today's postoperative day #3. The patient is examined bedside. Patient states the pain in her right hip is currently well-controlled, she states the pain continues to improve daily. She has not been up out of bed yet today, per nursing she was not out of bed yesterday but they are planning to get her up today. Patient overall feels well today. She states she did feel mildly short of breath earlier this morning, although nursing helped the patient sit up in a more upright position, and patient states she feels much better and her shortness of breath has resolved. Patient is complaining of mild left calf pain today. No additional complaints. Hemoglobin trending down at 8.5 today. She denies chest pain, nausea, vomiting, dizziness. Vital signs stable. Objective - Vital Signs Vital signs: Vital Signs Temp 98.2 F 03/04/20 07:00 Pulse 80 03/04/20 07:00 Resp 16 03/04/20 07:00 BP 146/66 03/04/20 07:00 Pulse Ox 94 L 03/04/20 07:00 Intake & Output 03/03/20 03/04/20 03/04/20 18:59 06:59 18:59 Output Total 600 Balance -600 Output: Urine 600 Uretheral (Stovall) 300 Other: Voiding Method Bedpan Bedpan Diaper Diaper # Voids 3 3 - Exam On examination, the patient is lying in bed in no apparent distress. She is alert and oriented 3. On inspection of the right hip, there is a clean, dry, intact dressing in place. There is no drainage or bleeding through the dressing. There is ecchymosis of the right hip. The thigh is soft and compressible. There is no significant pain on palpation of the right hip. Patient has good strength and range of motion of the right ankle. Motor and sensory function intact of the right lower extremity. Right lower extremity is warm and well-perfused with brisk capillary refill distally. There is no swelling or erythema of the calves bilaterally. Left calf is mildly tender. - Labs CBC & Chem 7: 03/04/20 06:37 03/04/20 06:37 Labs: Abnormal Lab Results - Last 24 Hours (Table) 03/04/20 03/04/20 Range/Units 06:37 06:37 RBC 3.09 L (3.80-5.40) m/uL Hgb 8.5 L D (11.4-16.0) gm/dL Hct 26.6 L (34.0-46.0) % RDW 15.7 H (11.5-15.5) % Lymphocytes # (Manual) 0.64 L (1.0-4.8) k/uL Sodium 126 L (137-145) mmol/L Chloride 90 L (98-107) mmol/L Carbon Dioxide 31 H (22-30) mmol/L Creatinine 0.46 L (0.52-1.04) mg/dL Glucose 123 H (74-99) mg/dL Calcium 8.2 L (8.4-10.2) mg/dL Assessment and Plan Assessment: Status-post open reduction and internal fixation periprosthetic fracture right proximal femur on 03/01/20. Post-operative day #3. Plan: - Strict nonweightbearing on the right lower extremity. Up with assistance, up with a walker. - Will obtain Doppler US left lower extremity to r/o DVT as cause of calf pain. - Will continue to monitor hemoglobin level, 8.5 today. - Physical therapy for gait and balance training. - Keep Optifoam dressing in place for 10 days. May shower with dressing in place. - Internal medicine for perioperative medical management. - Xarelto for DVT prophylaxis. - Continue pain management as needed. - Anticipate discharge to rehab Thursday.
--- NOTE | 2020-03-04 11:21 | US ---
EXAMINATION TYPE: US venous doppler duplex LE DATE OF EXAM: 03/04/2020 11:03 AM COMPARISON: NONE CLINICAL HISTORY: calf pain. Calf pain s/p right hip surgery SIDE PERFORMED: Bilateral TECHNIQUE: The lower extremity deep venous system is examined utilizing real time linear array sonog nicholas with graded compression, doppler sonography and color-flow sonography. VESSELS IMAGED: External Iliac Vein (EIV) Common Femoral Vein Deep Femoral Vein Greater Saphenous Vein * Femoral Vein Popliteal Vein Small Saphenous Vein * Proximal Calf Veins (* superficial vessels) Large pt body habitus, pt unable to tolerate compressions at distal femoral veins Right Leg: Negative for DVT Left Leg: Negative for DVT No popliteal fossa lesion is seen. IMPRESSION: THIS EXAMINATION IS NEGATIVE FOR DVT IN BOTH LEGS.
--- NOTE | 2020-03-04 15:17 | XR ---
EXAMINATION TYPE: XR chest 1V portable DATE OF EXAM: 03/04/2020 CLINICAL HISTORY: Difficulty breathing progress study. Recent hip surgery. TECHNIQUE: Single AP portable upright view of the chest is obtained. COMPARISON: Chest x-ray from 4 days earlier FINDINGS: Chronic parenchymal changes bilaterally remain present without suspicious new focal airspa ce opacity, pleural effusion, or pneumothorax seen bilaterally. Cardiac silhouette size is stable and upper limits of normal with atherosclerotic thoracic aorta. Osseous structures remain demineralized. Advanced degenerative change left glenohumeral joint is redemonstrated. IMPRESSION: Overall stable findings, chronic changes without new acute infiltrate identified.
[2020-03-04] MEDS: SODIUM CHLORIDE 0.9% 1,000 ML IV SCH (19:36)
[2020-03-04] MEDS: CITALOPRAM HYDROBROMIDE 20 MG TAB PO SCH (20:05)
[2020-03-04] MEDS: SENNOSIDES-DOCUSATE SODIUM 1 EACH TAB PO SCH (20:05)
--- NOTE | 2020-03-04 23:34 | PN ---
PROGRESS NOTE DATE OF SERVICE: 03/04/2020 This 70-year-old woman who was admitted with right hip periprosthetic fracture had surgery. The patient is closely monitored. The patient has some mild hypoxia. A chest x-ray which was done today which was reviewed by me personally showed stable finding of chronic changes. No chest pain. No palpitations. No fever. PHYSICAL EXAMINATION: On exam, alert and oriented x3. Pulse is 91, blood pressure 131/62, respirations 17, temperature 98.4, pulse ox 94% on room air. HEENT: Conjunctivae normal. NECK: No jugular venous distention. CARDIOVASCULAR: S1, S2 muffled. RESPIRATORY: Breath sounds diminished at the bases. No rhonchi. No crackles. ABDOMEN: Soft, nontender. LEGS: Status post hip surgery. NERVOUS SYSTEM: No focal deficits. LABS: WBC 4.6, hemoglobin is 8.5. Sodium 126, potassium 3.8. ASSESSMENT: 1. Status post ORIF of the right hip periprosthetic fracture. 2. History of recent ORIF of the right hip. 3. Mildly elevated liver enzymes, trending down. 4. Hyponatremia. 5. Hypertension. 6. Gastroesophageal reflux disease. 7. Sleep apnea. 8. Morbid obesity. 9. History of chronic low back pain. 10.Degenerative joint disease. 11.History of mild hypokalemia. 12.Anemia, normocytic anemia of chronic disease. 13.FULL CODE. RECOMMENDATIONS AND DISCUSSION: Recommend to continue current medications, continue symptomatic treatment. Otherwise at this time I recommend continue with incentive spirometry, rest of medications, DVT prophylaxis. Closely follow with Orthopedic Surgery. Further recommendations to follow. MMODL / IJN: [id number] /
[2020-03-05] MEDS: SODIUM CHLORIDE 0.9% 1,000 ML IV SCH ×2 (01:08→09:37)
[2020-03-05] MEDS: HYDROcodone/APAP 7.5-325MG 1 EACH TAB PO PRN ×3 (01:52→13:43)
[2020-03-05 07:34] VITALS: BP 134/77; PULSE 77; RESP 17; TEMP 98.8
[2020-03-05] MEDS: OMEPRAZOLE 20 MG PO SCH (08:28)
[2020-03-05] MEDS: amLODIPine 5 MG TAB PO SCH (08:28)
[2020-03-05] MEDS: RIVAROXABAN 10 MG TAB PO SCH (08:28)
[2020-03-05] MEDS: LISINOPRIL 10 MG TAB PO SCH (08:28)
--- NOTE | 2020-03-05 08:31 | P.DS ---
Providers Date of admission: 02/29/20 18:46 Expected date of discharge: 03/05/20 Attending physician: Keith Vega Consults: 02/29/20 20:25 Consult Physician Routine Consulting Provider: Edward Sim Consult Reason/Comments: medical managment Do you want consulting provider notified?: Yes Primary care physician: Gil Bledsoe - Discharge Diagnosis(es) (1) Periprosthetic fracture around internal prosthetic right hip joint Current Visit: Yes Status: Acute (2) S/P total hip arthroplasty Current Visit: No Status: Acute Hospital Course: This is a 69-year-old female who sustained a right periprosthetic proximal femur fracture after a fall on 02/29/2020. The patient previously underwent right total hip arthroplasty on 02/27/2020. The patient was evaluated in the emergency room on 02/29/2020 and x-rays revealed periprosthetic fracture right proximal femur. After discussion and consideration patient elects to proceed with open reduction and internal fixation periprosthetic fracture right proximal femur. The patient is seen preoperatively by Dr. Vega and medically cleared for surgery by internal medicine. Patient is admitted to [facility] on 02/29/2020 and open reduction and internal fixation periprosthetic fracture right proximal femur was done on 03/01/2020. The procedures performed without complication or sequelae. The patient is doing well postoperatively. Labs and vital signs are stable on day of discharge. On day of discharge patient's hip incision is healing well. There is minimal erythema. There is no drainage noted at this time. There is minimal soft tissue swelling to the hip and thigh. Patient has full foot and ankle motion without difficulty or pain. Calf is soft and nontender to palpation. Neurovascular status to the right lower extremity is intact. Patient is discharged to rehab in good condition. Opioid start talking form is reviewed and signed at patient bedside. Please see med rec for accurate list of home medications. Patient Condition at Discharge: Stable Plan - Discharge Summary Discharge Rx Participant: Yes New Discharge Prescriptions: New HYDROcodone/APAP 7.5-325MG [[place] 7.5-325] 1 - 2 tab PO Q6H PRN #32 tab PRN Reason: Pain Sennosides [Senokot] 2 tab PO DAILY PRN #60 tablet PRN Reason: Constipation Rivaroxaban [Xarelto] 10 mg PO DAILY #31 tab No Action Citalopram Hydrobromide [CeleXA] 40 mg PO HS Lisinopril-Hctz 10-12.5 mg [Zestoretic 10-12.5] 1 each PO DAILY Furosemide [Lasix] 20 mg PO DAILY PRN PRN Reason: water retention Meloxicam [Mobic] 7.5 mg PO DAILY 30 Days #30 tab Aspirin 325 mg PO BID #60 tab HYDROcodone/APAP 7.5-325MG [[place] 7.5-325] 1 - 2 tab PO Q6H PRN #56 tab PRN Reason: Pain Sennosides [Senokot] 17.2 mg PO DAILY PRN PRN Reason: Constipation Meloxicam [Mobic] 15 mg PO DAILY Omeprazole [PriLOSEC] 40 mg PO BID Discharge Medication List Citalopram Hydrobromide [CeleXA] 40 mg PO HS 01/24/16 [History] Furosemide [Lasix] 20 mg PO DAILY PRN 09/02/19 [History] Lisinopril-Hctz 10-12.5 mg [Zestoretic 10-12.5] 1 each PO DAILY 09/02/19 [History] Meloxicam [Mobic] 7.5 mg PO DAILY 30 Days #30 tab 09/16/19 [Rx] Aspirin 325 mg PO BID #60 tab 02/28/20 [Rx] HYDROcodone/APAP 7.5-325MG [[place] 7.5-325] 1 - 2 tab PO Q6H PRN #56 tab 02/28/20 [Rx] Meloxicam [Mobic] 15 mg PO DAILY 02/29/20 [History] Omeprazole [PriLOSEC] 40 mg PO BID 02/29/20 [History] Sennosides [Senokot] 17.2 mg PO DAILY PRN 02/29/20 [History] HYDROcodone/APAP 7.5-325MG [[place] 7.5-325] 1 - 2 tab PO Q6H PRN #32 tab 03/05/20 [Rx] Rivaroxaban [Xarelto] 10 mg PO DAILY #31 tab 03/05/20 [Rx] Sennosides [Senokot] 2 tab PO DAILY PRN #60 tablet 03/05/20 [Rx] Follow up Appointment(s)/Referral(s): Vamshi Bledsoe MD [Primary Care Provider] - 1-2 days Keith Vega DO [Doctor of Osteopathic Medicine] - 10 Days Activity/Diet/Wound Care/Special Instructions: Strictly nonweightbearing to the right lower extremity. Leave dressing intact. Dressing may be removed by nurse or by patient 10 days postoperatively, 03/11/2020. May shower with dressing on. Xarelto for anticoagulation. Recommend use of compression stockings daily until follow up to help prevent swelling and blood clots. May remove at night before sleeping. Please follow-up with [facility] in 2 weeks and call with any questions or concerns, . Discharge Disposition: TRANSFER TO SNF/ECF
[2020-03-05 11:00] LABS: African American GFR (CKD) >90 (>60 ml/min/1.73 sqM); Anion Gap 5 mmol/L; Blood Urea Nitrogen 10 mg/dL (7-17); Calcium 8.4 mg/dL (8.4-10.2); Carbon Dioxide 30 mmol/L (22-30); Chloride 92 mmol/L (98-107); Glucose 141 mg/dL (74-99); Non-African American GFR(CKD) >90 (>60 ml/min/1.73 sqM); Potassium 3.7 mmol/L (3.5-5.1); Sodium 127 mmol/L (137-145)
--- NOTE | 2020-03-05 13:17 | P.PN ---
Subjective Progress Note Date: 03/05/20 Principal diagnosis: This is a 70-year-old female who was recently admitted with right hip periprosthetic fracture and underwent surgical repair with orthopedic surgery and is being closely monitored. Patient currently denies any chest pain, shortness of breath, or palpitations. Patient is afebrile. No reports of nausea or vomiting and patient is tolerating diet. Patient is currently on room air at 94-95%. Patient states she will be going to [facility] for continued PT/OT therapy rehab. Will continue to follow along closely with orthopedic surgery. Objective - Vital Signs Vital signs: Vital Signs Temp 98.8 F 03/05/20 07:00 Pulse 77 03/05/20 07:00 Resp 17 03/05/20 07:00 BP 134/77 03/05/20 07:00 Pulse Ox 94 L 03/05/20 07:00 Intake & Output 03/04/20 03/05/20 03/05/20 18:59 06:59 18:59 Other: Voiding Method Bedpan Diaper # Voids 3 1 - Exam Gen: This is a 70-year-old female sitting up in the chair, awake, alert and oriented 3, well-developed, well-nourished. HEENT: Head is atraumatic, normocephalic. Pupils equal, round. Sclerae is anicteric. NECK: Supple. No JVD. No lymphadenopathy. No thyromegaly. LUNGS: Diminished breath sounds at the bases with no wheezes or rhonchi noted. No intercostal retractions. HEART: S1, S2 are muffled ABDOMEN: Soft. Bowel sounds are present. No masses. No tenderness. EXTREMITIES: No pedal edema. No calf tenderness. Right surgical site dressing is dry and intact NEUROLOGICAL: Patient is awake, alert and oriented x3. Cranial nerves 2 through 12 are grossly intact. - Labs CBC & Chem 7: 03/04/20 06:37 03/05/20 10:04 Labs: Abnormal Lab Results - Last 24 Hours (Table) 03/05/20 Range/Units 10:04 Sodium 127 L (137-145) mmol/L Chloride 92 L (98-107) mmol/L Creatinine 0.51 L (0.52-1.04) mg/dL Glucose 141 H (74-99) mg/dL Assessment and Plan Assessment: Status post ORIF of the right hip periprosthetic fracture History of recent ORIF of the right hip Mildly elevated liver enzymes, trending down Hyponatremia Hypertension Gastroesophageal reflux disease Sleep apnea Morbid obesity History of chronic low back pain History of mild hypokalemia Degenerative joint disease Anemia, normocytic anemia of chronic disease Full code Recommendations and discussion: Recommend continue current medications, management, and symptomatic treatment. Continue with pain management per primary service. Instructed the patient to continue using incentive spirometer at least 10 times every hour while awake and increasing activity as tolerated. Resume home medications. Patient is scheduled to be discharged to an ECF in [facility] for continued PT/OT therapy. Will continue to follow with orthopedic surgery during hospitalization. Her the recommendations to follow.
== END 2020-03-05 13:52 | DRG 481 ==
LOC: EC 17:31 → 4SSUR 18:46
PROVIDERS: ADMIT Orthopaedic Surgery; ATTEND Orthopaedic Surgery
PROC: 5A09457 Assistance with Respiratory Ventilation, 24-96 Consecutive Hours, Continuous Positive Airway Pressure (ICD-10-PCS; 2020-03-01)
PROC: 0QS604Z Reposition Right Upper Femur with Internal Fixation Device, Open Approach (ICD-10-PCS; principal; 2020-03-01 07:30)
DX: S72.121A Displaced fracture of lesser trochanter of right femur, initial encounter for closed fracture (principal); M97.01XA Periprosthetic fracture around internal prosthetic right hip joint, initial encounter; Z68.41 Body mass index [BMI] 40.0-44.9, adult; E87.1 Hypo-osmolality and hyponatremia; D63.8 Anemia in other chronic diseases classified elsewhere; E66.01 Morbid (severe) obesity due to excess calories; E87.6 Hypokalemia; I10 Essential (primary) hypertension; F32.9 Major depressive disorder, single episode, unspecified; F41.9 Anxiety disorder, unspecified; K21.9 Gastro-esophageal reflux disease without esophagitis; K22.70 Barrett's esophagus without dysplasia; K44.9 Diaphragmatic hernia without obstruction or gangrene; G89.29 Other chronic pain; M54.5 Low back pain; M19.90 Unspecified osteoarthritis, unspecified site; G47.30 Sleep apnea, unspecified; M54.30 Sciatica, unspecified side; R74.8 Abnormal levels of other serum enzymes; R09.02 Hypoxemia; M79.662 Pain in left lower leg; Z79.82 Long term (current) use of aspirin; Z79.1 Long term (current) use of non-steroidal anti-inflammatories (NSAID); Z79.899 Other long term (current) drug therapy; Z87.81 Personal history of (healed) traumatic fracture; Z90.49 Acquired absence of other specified parts of digestive tract; Z98.890 Other specified postprocedural states; W18.2XXA Fall in (into) shower or empty bathtub, initial encounter; Y93.E1 Activity, personal bathing and showering; Y92.002 Bathroom of unspecified non-institutional (private) residence as the place of occurrence of the external cause; Z80.0 Family history of malignant neoplasm of digestive organs; Z82.49 Family history of ischemic heart disease and other diseases of the circulatory system
CPT/HCPCS: 71045; 73501; 73502; 80048; 80053; 80076; 83735; 85025; 85610; 85730; 86850; 86891; 86900; 86901; 88300; 93970; 96374; 99285

== ENCOUNTER → 2021-06-29 | Outpatient (CLI) | payer MEDICARE ==
--- NOTE | 2021-06-29 13:43 | CT ---
EXAMINATION TYPE: CT shoulder LT wo con DATE OF EXAM: 06/29/2021 COMPARISON: None HISTORY: Pre op planning CT DLP: 414.6 mGycm Automated exposure control for dose reduction was used. FINDINGS: There is superior subluxation of the left glenohumeral joint and marked narrowing of the joint with m arginal spur formation. The findings are consistent with a chronic rotator cuff tear and marked osteo phytic change of the glenohumeral joint. The acromioclavicular joint is intact. There is no significa nt subacromial spur There is no acute fracture. IMPRESSION: FINDINGS CONSISTENT WITH CHRONIC ROTATOR CUFF TEAR OF THE LEFT SHOULDER WITH MARKED DEGENERATION OF T HE GLENOHUMERAL JOINT AND SUPERIOR SUBLUXATION OF THE JOINT.
== END | disposition home or self-care (01) ==
LOC: RADCTMAIN 10:05
PROVIDERS: ATTEND Orthopaedic Surgery Sports Medicine
DX: Z01.818 Encounter for other preprocedural examination (principal); M19.012 Primary osteoarthritis, left shoulder

== ENCOUNTER → 2021-07-05 | Outpatient (CLI) | payer MEDICARE ==
[2021-07-05 12:49] LABS: HCT 39.4 % (34.0-46.0); HGB 13.1 gm/dL (11.4-16.0); MCH 30.4 pg (25.0-35.0); MCHC 33.2 g/dL (31.0-37.0); MCV 91.7 fL (80.0-100.0); Mean Platelet Volume 6.7; Platelet Count 239 k/uL (150-450); RBC 4.29 m/uL (3.80-5.40); RDW 13.3 % (11.5-15.5); WBC 5.3 k/uL (3.8-10.6)
[2021-07-05 13:00] LABS: INR 0.9 (<1.2); Partial Thromboplastin Time 23.5 sec (22.0-30.0); Prothrombin Time 9.7 sec (9.0-12.0)
[2021-07-05 13:01] LABS: Appearance,Urine Clear (Clear); Bilirubin,Urine Negative (Negative); Blood,Urine Small (Negative); Color,Urine Yellow; Glucose,Urine (UA) Negative (Negative); Hyaline Casts,Urine 1 /lpf (0-2); Ketones,Urine Negative (Negative); Leukocyte Esterase,Urine Small (Negative); Mucus,Urine Rare /hpf; Nitrite,Urine Negative (Negative); Protein,Urine Negative (Negative); RBC,Urine 2 /hpf (0-5); Specific Gravity,Urine 1.012 (1.001-1.035); Squamous Epithelial Cell,Urine <1 /hpf (0-4); Urobilinogen,Urine <2.0 mg/dL (<2.0); WBC,Urine 2 /hpf (0-5)
[2021-07-05 13:03] LABS: ALT 19 U/L (4-34); AST 32 U/L (14-36); African American GFR (CKD) >90 (>60 ml/min/1.73 sqM); Albumin 4.2 g/dL (3.5-5.0); Alkaline Phosphatase 89 U/L (38-126); Anion Gap 9 mmol/L; Blood Urea Nitrogen 15 mg/dL (7-17); Calcium 9.8 mg/dL (8.4-10.2); Carbon Dioxide 22 mmol/L (22-30); Chloride 100 mmol/L (98-107); Glucose 95 mg/dL (74-99); Non-African American GFR(CKD) 89 (>60 ml/min/1.73 sqM); Potassium 4.6 mmol/L (3.5-5.1); Sodium 131 mmol/L (137-145); Total Bilirubin 0.4 mg/dL (0.2-1.3); Total Protein 6.9 g/dL (6.3-8.2)
== END | disposition home or self-care (01) ==
LOC: LABPAT 10:57
PROVIDERS: ATTEND Orthopaedic Surgery Sports Medicine
DX: Z01.812 Encounter for preprocedural laboratory examination (principal)
CPT/HCPCS: 80053; 81001; 85027; 85610; 85730; 87070; 93005

== ENCOUNTER 2021-07-11 06:38 | Day surgery (SDC) | payer MEDICARE ==
[2021-07-09 13:54] VITALS: BMI 43.0
[~2021-07-11 06:38] MED LIST changes: -ACETAMINOPHEN TAB 500 MG TAB PO ONE; +ACETAMINOPHEN TAB 500 MG TAB PO PRN; -ALVIMOPAN 12 MG CAPSULE PO ONE; +DEXAMETHASONE SOD PHOSPHATE 4 MG/ML 1 ML VIAL IV ONE; -GABAPENTIN 300 MG CAP PO ONE; +GABAPENTIN 300 MG CAP PO PRN; +LIDOCAINE 1% (10MG/ML) FOR IV START INTRADERMA PRN; -MELOXICAM 7.5 MG TAB PO ONE; +MELOXICAM 7.5 MG TAB PO PRN; +MIDAZOLAM 2 MG/2 ML VIAL IV PRN; +ONDANSETRON 4 MG/2 ML VIAL IVP ONE; +ONDANSETRON 4 MG/2 ML VIAL IVP PRN; -TRANEXAMIC ACID 1,000 MG in SODIUM CHLORIDE 0.9% 100 ML IVPB ONE; +TRANEXAMIC ACID 1,000 MG in SODIUM CHLORIDE 0.9% 100 ML IVPB PRN
[2021-07-11] MEDS ORDERED: LACTATED RINGERS 1,000 ML IV ONE ×2 (07:29→13:00)
[2021-07-11] MEDS ORDERED: MIDAZOLAM 2 MG/2 ML VIAL IVP ONE (07:46)
[2021-07-11] MEDS ORDERED: PHENYLEPHRINE-0.9% NACL SYG 1,000 MCG/10 ML SYRINGE ONE (08:03)
[2021-07-11] MEDS ORDERED: LIDOCAINE 1% INJ 10MG/ML (20 ML MDV) ONE (08:03)
[2021-07-11] MEDS ORDERED: ePHEDrine 50 MG/ML 1 ML AMP ONE (08:03)
[2021-07-11] MEDS ORDERED: ROCURONIUM 10 MG/ML (5 ML VIAL) IV ONE (08:03)
[2021-07-11] MEDS ORDERED: GLYCOPYRROLATE 0.2 MG/ML 2 ML VIAL ONE (08:03)
[2021-07-11] MEDS ORDERED: fentaNYL (PF) 50 MCG/ML 2 ML AMP ONE (08:03)
[2021-07-11] MEDS ORDERED: ROPIVACAINE 5 MG/ML 30 ML VIAL ONE (08:03)
[2021-07-11] MEDS ORDERED: TRANEXAMIC ACID 1,000 MG/10 ML VIAL ONE (08:03)
[2021-07-11] MEDS ORDERED: PROPOFOL 10 MG/ML 20 ML VIAL IV ONE (08:03)
[2021-07-11] MEDS ORDERED: NEOSTIGMINE 1 MG/ML 10 ML VIAL ONE (08:03)
[2021-07-11] MEDS ORDERED: MIDAZOLAM 2 MG/2 ML VIAL ONE (08:03)
[2021-07-11] MEDS ORDERED: SUCCINYLCHOLINE CHLORIDE VIAL 200 MG/10 ML VIAL IV ONE (08:03)
[2021-07-11] MEDS ORDERED: SODIUM CHLORIDE 0.9% 100 ML BAG ONE (08:03)
[2021-07-11] MEDS ORDERED: VANCOMYCIN 1,000 MG VIAL MISCELLANE ONE (08:46)
[2021-07-11] MEDS ORDERED: ceFAZolin 3,000 MG in SODIUM CHLORIDE 0.9% IRRIGATIO 3,000 ML IRRIGATION ONE (08:47)
[2021-07-11] MEDS ORDERED: TEMAZEPAM 15 MG CAP PO PRN (10:31)
[2021-07-11] MEDS ORDERED: HYDROmorphone 0.2 MG/1 ML SYRINGE IVP PRN (10:31)
[2021-07-11] MEDS ORDERED: ONDANSETRON 4 MG/2 ML VIAL IVP PRN (10:31)
[2021-07-11] MEDS ORDERED: Acetaminophen-Codeine 300-30mg TAB PO PRN ×2 (10:31)
[2021-07-11] MEDS ORDERED: diphenhydrAMINE 25 MG CAP PO PRN (10:31)
[2021-07-11] MEDS ORDERED: HYDROmorphone 0.5 MG/0.5 ML SYRINGE IVP PRN ×2 (10:31)
[2021-07-11] MEDS ORDERED: METOCLOPRAMIDE 5 MG/ML 2 ML VIAL IVP PRN (10:31)
[2021-07-11] MEDS ORDERED: PROCHLORPERAZINE SUPPOSITORY 25 MG SUPP RECTAL PRN (10:31)
[2021-07-11] MEDS ORDERED: HYDROcodone/APAP 7.5-325MG 1 EACH TAB PO PRN (10:35)
[2021-07-11] MEDS: HYDROmorphone 0.5 MG/0.5 ML SYRINGE IVP PRN ×4 (10:38→11:31)
--- NOTE | 2021-07-11 11:03 | XR ---
Left shoulder HISTORY: Postop Single frontal view of the left shoulder Patient is status post left shoulder arthroplasty. His indwelling drain. There is anatomic alignment. There are overlying artifacts. Distal acromial spur is noted. Lucencies present within the soft tiss ues. Visualized left lung shows possible atelectatic change. IMPRESSION: Orthopedic follow-up. Additional findings above.
[2021-07-11] MEDS: LACTATED RINGERS 1,000 ML IV SCH ×3 (14:27→20:19)
--- NOTE | 2021-07-11 16:26 | OP ---
OPERATIVE REPORT DATE OF PROCEDURE: 07/11/2021. SURGEON: Salvador Mcclendon M.D. KNOTTER HAND: Edilberto Corbin PA-C PREOPERATIVE DIAGNOSIS: Left shoulder osteoarthrosis. POSTOPERATIVE DIAGNOSIS: Left shoulder osteoarthrosis. OPERATION: Left reverse total shoulder arthroplasty. ANESTHESIA: General tracheal. ESTIMATED BLOOD LOSS: 100 mL. DRAINS: One deep drain. COMPLICATIONS: None apparent. DISPOSITION: Post-Anesthesia Care Unit. INDICATIONS: Mariah is a very pleasant 71-year-old female with longstanding left shoulder pain. Workup including x-rays and a CT scan revealed advanced osteoarthrosis of the left shoulder with mild superior migration of the humeral head. At this point it is felt that she has failed conservative management, and she would like to proceed with operative intervention. The risks of the procedure were discussed with her in detail. These risks include but are not limited to risk of infection, nerve damage, bleeding, pain, instability in the shoulder, loosening of the implants and deep infection. There is also a risk of deep vein thrombosis which could lead to fatal pulmonary embolism. The patient understood the risks. All of her questions with regard to the risks of procedure were answered to her satisfaction. Appropriate informed consent was obtained. DESCRIPTION OF THE PROCEDURE: The patient was identified in the preoperative holding area. Surgical site was marked by both the patient and myself. She was given 2 grams of Ancef IV for prophylactic purposes. She was then transferred to the operative suite. She was placed supine on the operating room table. General anesthetic was then administered and dosed per the anesthesia department without apparent complication. Examination under anesthesia was then performed of the left shoulder. She had passive elevation to 130 degrees. External rotation at the side was to 30 degrees. The patient was then placed into the beach chair position, well padded in preparation for surgery. Great care was taken to ensure that her cervical spine was in neutral alignment, well padded and maintained that way throughout the operative procedure. Great care was also taken to ensure that her legs were appropriately padded as well. The patient's left upper extremity was then prepped and draped in the usual sterile fashion. A standard surgical pause was undertaken to ensure that we were operating on the correct site and that appropriate preoperative antibiotics had been given. All staff in the room were in agreement and we proceeded. The acromion, AC joint, clavicle and coracoid were marked with a surgical pen. A planned incision starting at the level of the clavicle and extending distally over the deltopectoral interval approximately 1 cm lateral to the coracoid was marked with a surgical pen. The incision was then made with a 10-blade scalpel. Dissection was carried down sharply to the deltoid fascia. The deltopectoral was then identified at the level of the clavicle. A small band retractor was then placed under the proximal deltoid. I then released the deltoid fascia on the lateral aspect of the cephalic vein. The vein was protected and left in its bed medially. This cephalic vein was protected throughout the entire case. I then identified the clavipectoral fascia. This was incised proximally at the level of the coracoacromial ligament. The coracoacromial ligament was then left intact. I then used my finger to spread the interval between the conjoint tendon and the subscapularis. I also felt for the axillary nerve, which was readily palpable. I then cleared the subacromial and subdeltoid spaces of bursal and scar tissue. She did have a fairly sizable defect in the superior rotator cuff. I then utilized a Chaudhary retractor to hold the deltoid and expose the humeral head. I then proceeded to release the subscapularis and the anterior inferior shoulder capsule. The rotator cuff was again inspected. The subscapularis also had tearing in the superior aspect of the superior quarter of the subscapularis. The rotator interval was identified. The course of the biceps tendon was also identified. I then released the rotator interval at the level of the coracoid and then out laterally. The remaining subscapularis and capsule were then released intratendinously. The subscapularis and capsule release extended distally in a lazy-S fashion approximately 1 cm medial to the biceps tendon. I then continued to release the capsule along the inferior neck in a vertical fashion to about the 6 o'clock position. Great care was taken to ensure that the capsule was always visualized as it was released to avoid injuring the axillary nerve. I then brought a Hutson machine erector with the arm externally rotated and abducted. I continued to release the capsule inferomedially to the 4 o'clock position. The inferior osteophytes were now removed as well. This was done with a rongeur. I then proceeded with preparation of the humerus. I removed all the goat's gibson osteophytes. I then removed the subchondral plate from the superior aspect of the humeral head with a large rongeur. I then used a starting reamer to gain access to the humeral canal. This was approximately 1 cm medial to the rotator cuff insertion and 1 cm posterior to the bicipital groove. I then prepared the humeral canal with hand reaming. I started with a 6 mm reamer and incrementally progressed in 1 mm increments until firm resistance was encountered at 9 mm. The reamer handle was then left in place. I then utilized a humeral resection guide set at 30 degrees of retrotorsion. The cutting block was then set at the level of the rotator cuff insertion. I then proceeded to osteotomize the head with an oscillating saw. I removed the resection guide and then completed the osteotomy. I then proceeded to trial stem placement. A trial size 9 was then broached in the canal starting with a 6 mm broach and incrementally increasing up to a 9 mm broach. The 9 mm trial stem was then left in place. At this point I utilized a bone hook to pull the humerus out laterally. The glenohumeral joint was inspected. The rotator cuff did have a defect in the supraspinatus. I made a decision to proceed with a reverse total shoulder arthroplasty at this point. At this point I proceeded with exposure of the glenoid. The Hutson stand was brought in. The arm was then flexed to approximately 80 degrees, slightly abducted. The Bhattman retractor was then placed on the posterior glenoid rim. I then proceeded to remove the hypertrophic labrum to definitively identify the actual glenoid. I had good exposure of the glenoid. The mini base plate guide was then placed. The pin was then drilled just inferior to the center of the glenoid in approximately 10 degrees of inferior tilt. I utilized the mini reamer. The glenoid was then reamed as minimal as possible to preserve as much subchondral bone as possible. I then placed the real base plate. It was a mini base plate. This was impacted onto the glenoid. I then placed a 25 mm central screw. The screw had excellent purchase in bone. I was able to rotate the scapula through the screwdriver when it was fully seated. I then placed the four peripheral locking screws. The inferior screw was 25 mm. The anterior and posterior screws were 15 mm and the superior screw was 20 mm. These were all 5 mm locking screws. I then had the personal financial representative open a standard glenosphere. It was a 36 mm glenosphere. The offset was then set to inferiorly offset the glenosphere. The Khan taper was dried and then the glenosphere was impacted onto a dry Khan taper. I then proceeded to trial with the real glenosphere in place. A standard tray and standard base plate were then placed onto the trial stem. The shoulder was then reduced. It was a moderately difficult reduction. It was very stable throughout a full range of motion. The conjoint tendon had appropriate tension. There was no impingement noted. I made a decision to go with a polyethylene standard base plate. The bone hook was then utilized to re-dislocate the shoulder. The wound was thoroughly irrigated with sterile saline solution with antibiotic added via pulse lavage. I had the personal financial representative open a Biomet 83 mm size 9 mini stem, a standard tray and a standard polyethylene. The real stem was then impacted into the humeral canal in approximately 30 degrees of retrotorsion. The Khan taper was dried. The polyethylene was locked onto the tray on the back table and then the tray and polyethylene were impacted onto the dry Khan taper of the stem. The shoulder was then again reduced. Again it was a stable reduction. It was taken through full range of motion. There was very minimal shuck. There was no impingement noted. The conjoint tendon was of appropriate tension. I also felt for the axillary nerve, which was readily palpable and intact. At this point I proceeded with closure. The subscapularis was of very poor quality. I did not repair the subscapularis. The wound was again thoroughly irrigated with sterile saline solution with antibiotic added. A deep drain was then placed and brought out superiorly away from the incision. Approximately 500 mg of vancomycin powder was then placed deep. The deltopectoral was reapproximated with 0 Vicryl interrupted suture. The subcutaneous tissues were then also irrigated with sterile saline solution with antibiotic added. The remaining 500 mg of vancomycin powder was then placed subcutaneously. The subcutaneous tissue was then closed with 2-0 Vicryl interrupted suture. Skin was closed with running 3-0 Quill suture. Dermabond was applied to the incision. Sterile dressing was applied, and then her left upper extremity was placed into a standard sling. All sponge and needle counts were deemed correct prior to closure. The patient tolerated the procedure without apparent complication. She was transferred to the recovery room in stable condition. JERMAINE / MAIK: [id number] /
--- NOTE | 2021-07-11 17:08 | P.CONS ---
History of Present Illness - Reason for Consult Consult date: 07/11/21 HTN Requesting physician: Salvador Mcclendon - Chief Complaint shoulder pain - History of Present Illness Patient is a 71-year-old female with a history of obstructive sleep apnea with CPAP use, GERD with Sosa's esophagus, and hypertension who presented for elective left total shoulder arthroplasty. She underwent the procedure without any immediate postoperative complications. Patient seen and examined at bedside. She said she had some postoperative nausea but his sons resolved. Pain is well controlled and she is having some numbness still due to her nerve block however she is able to move her hand without difficulty. She denies any recent cough, cold, fever, flu. She states that she elected for shoulder surgery after undergoing nonoperative management without success and still having frequent pain. She does not use any assistive devices at home. Pertinent positives and negatives as discussed in HPI, a complete review of systems was performed and all other systems are negative. General: non toxic, no distress, appears at stated age, obese Derm: warm, dry Head: atraumatic, normocephalic, symmetric Eyes: EOMI, no lid lag, anicteric sclera, pupils equal round reactive to light ENT: Nose and ears atraumatic, no thrush, no pharyngeal erythema Neck: No thyromegaly, no cervical lymphadenopathy, trachea midline, supple Mouth: no lip lesion, mucus membranes moist Cardiovascular: S1S2 reg, no murmur, positive posterior tibial pulse bilateral, no edema, capillary refill less than 2 seconds Lungs: clear to ascultation bilateral, no ronchi, no rales, no wheeze, no accessory muscle use Abdominal: soft, nontender to palpation, no guarding, no appreciable organomegaly, normal bowel sounds Ext: no gross muscle atrophy, muscle strength muscle strength 5 out of 5 bilateral lower extremities no contractures, left shoulder in sling Neuro: CN II-XI grossly intact, light touch intact all 4 extremities, finger to nose within normal limits, Psych: Alert, oriented, appropriate affect Patient is a 71-year-old female status post left shoulder arthroplasty Hypertension -Resume home lisinopril -Follow blood pressures SHANKAR -CPAP GERD/Sosa's esophagus -PPI twice a day Obesity with BMI 44.2 -Outpatient structured weight loss Thank you for allowing us to participate in the care of this pleasant patient. Do not hesitate to contact us with questions. Someone can be reached from the [facility] [place] hospitalist group all hours of the day at [phone] or via [employer]. Past Medical History Past Medical History: GERD/Reflux, Hypertension, Osteoarthritis (OA), Sleep Apnea/CPAP/BIPAP Additional Past Medical History / Comment(s): Barretts esophagus, hiatal hernia, CPAP use. History of Any Multi-Drug Resistant Organisms: None Reported Past Surgical History: Breast Surgery, Cholecystectomy, Joint Replacement, Orthopedic Surgery, Tonsillectomy Additional Past Surgical History / Comment(s): ORIF-left wrist with plate, left breast biopsy, surgery to laser uvula for sleep apnea, arthroscopy left shoulder, bilateral hip replacements. Past Anesthesia/Blood Transfusion Reactions: No Reported Reaction, Motion Sickness Additional Past Anesthesia/Blood Transfusion Reaction / Comm: "Rare motion sickness." Past Psychological History: Anxiety, Depression Smoking Status: Never smoker Past Alcohol Use History: None Reported Past Drug Use History: None Reported - Past Family History Mother Family Medical History: No Reported History Additional Family Medical History / Comment(s): Maternal grandma had bowel cancer. Father Family Medical History: Coronary Artery Disease (CAD) Medications and Allergies Home Medications Medication Instructions Recorded Confirmed Type Citalopram Hydrobromide [CeleXA] 40 mg PO HS 01/24/16 07/09/21 History Omeprazole [PriLOSEC] 40 mg PO BID 02/29/20 07/09/21 History Acetaminophen [Tylenol] 1,000 mg PO Q6H PRN 07/09/21 07/09/21 History Aspirin [Adult Low Dose Aspirin EC] 81 mg PO DAILY 07/09/21 07/09/21 History lisinopriL [Zestril] 10 mg PO QAM 07/09/21 07/09/21 History Allergies Allergy/AdvReac Type Severity Reaction Status Date / Time No Known Allergies Allergy Verified 07/09/21 13:39 Physical Exam Osteopathic Statement: *. No significant issues noted on an osteopathic structural exam other than those noted in the History and Physical/Consult. Vitals: Vital Signs Temp Pulse Pulse Resp BP BP Pulse Ox 07/11/21 14:19 98.9 F 93 16 127/78 92 L 07/11/21 12:45 62 16 156/70 96 07/11/21 12:15 80 14 159/71 96 07/11/21 11:45 66 16 150/78 98 07/11/21 11:30 63 16 150/76 98 07/11/21 11:15 63 16 154/76 98 07/11/21 11:00 63 16 146/72 98 07/11/21 10:45 69 16 164/74 98 07/11/21 10:28 96.8 F L 90 16 179/81 98 07/11/21 07:48 64 18 161/77 100 07/11/21 07:23 97.9 F 75 18 164/85 94 L Intake and Output 07/11/21 07/11/21 07/11/21 06:59 14:59 22:59 Intake Total 876 Output Total 150 Balance 726 Intake: IV 876 Output: Estimated Blood Loss 150 Other: # Voids 1 Weight 109.7 kg 109.7 kg
[2021-07-11] MEDS: PANTOPRAZOLE 40 MG TABLET PO SCH (17:33)
--- NOTE | 2021-07-11 20:31 | P.ANPRN ---
Procedure Note - Anesthesia - Nerve Block Performed Left Interscalene Single Time Out Performed: Yes Date of Procedure: 07/11/21 Procedure Start Time: 07:45 Procedure Stop Time: 07:48 Location of Patient: PreOp Indication: Acute Post-Operative Pain, Requested by Surgeon Sedation Type: Sedate with meaningful contact maintained Preparation: Sterile Prep Position: Supine Needle Types: Pajunk Needle Gauge: 21 Ultrasound used to visualize needle placement: Yes Ultrasound used to observe medication spread: Yes Blood Aspirated: No Pain Paresthesia on Injection Noted: No Resistance on Injection: Normal Image Stored and Saved: Yes Events: Uneventful and Well Tolerated (ropi .5% 20cc plus dexamethasone 4mg)
[2021-07-11] MEDS ORDERED: CITALOPRAM HYDROBROMIDE 20 MG TAB PO SCH (21:00)
[2021-07-11] MEDS: HYDROcodone/APAP 7.5-325MG 1 EACH TAB PO PRN (23:29)
[2021-07-11] MEDS: CALCIUM CARBONATE 500 MG CHEWABLE PO PRN (23:30)
[2021-07-12] MEDS: CALCIUM CARBONATE 500 MG CHEWABLE PO PRN (02:27)
[2021-07-12] MEDS: LACTATED RINGERS 1,000 ML IV SCH ×2 (06:10→07:00)
[2021-07-12] MEDS: HYDROcodone/APAP 7.5-325MG 1 EACH TAB PO PRN ×2 (06:57→12:09)
[2021-07-12] MEDS: PANTOPRAZOLE 40 MG TABLET PO SCH (07:28)
[2021-07-12 08:01] VITALS: RESP 16
[2021-07-12] MEDS ORDERED: ASPIRIN 81 MG PO SCH (09:00)
[2021-07-12] MEDS ORDERED: lisinopriL 10 MG TAB PO SCH (09:00)
[2021-07-12 09:42] LABS: Basophils # (A) 0.01 X 10*3/uL (0.00-0.10); Basophils % (A) 0.1 %; Eosinophils # (A) 0 X 10*3/uL (0.04-0.35); Eosinophils % (A) 0 %; HCT 36.2 % (37.2-46.3); HGB 11.7 g/dL (12.0-15.0); Lymphocytes % (A) 11.8 %; MCH 29.6 pg (27.0-32.0); MCHC 32.3 g/dL (32.0-37.0); MCV 91.6 fL (80.0-97.0); Mean Platelet Volume 9.4 fL (9.5-12.2); Monocytes # (A) 0.72 X 10*3/uL (0.20-1.00); Monocytes % (A) 8.5 %; Neutrophils # (A) 6.69 X 10*3/uL (1.80-7.70); Neutrophils % (A) 78.8 %; Platelet Count 240 X 10*3/uL (140-440); RBC 3.95 X 10*6/uL (4.10-5.20); RDW 13.7 % (11.5-14.5); WBC 8.49 X 10*3/uL (4.50-10.00)
--- NOTE | 2021-07-12 10:31 | P.DS ---
Providers Expected date of discharge: 07/12/21 Attending physician: Salvador Mcclendon Consults: 07/11/21 10:31 Consult Physician Routine Consulting Provider: Diann Marino Consult Reason/Comments: post op medical management Do you want consulting provider notified?: Yes Primary care physician: Gil Bledsoe - Discharge Diagnosis(es) (1) Osteoarthritis of left shoulder Patient was admitted to the OR on 07/11/2021 to undergo a left total shoulder arthroplasty. She had failed conservative measures as an outpatient and desired to proceed with elective surgery after given informed consent. She underwent the above procedure which she tolerated well without complication. Postoperative hospital course has remained without complication. On day of discharge she is afebrile, vital signs stable, labs within acceptable ranges, tolerating by mouth meds and diet, voiding without difficulty, positive flatus, denies abdominal pain or calf pain, pain is controlled on oral pain medication and has no new complaints. Wound is benign, neurovascular status is intact, calves are soft and nontender, abdomen soft and nontender. Review of systems is negative for numbness, tingling, fever, chills, chest pain, shortness of breath, nausea, vomiting, dizziness, headaches, slurred speech or other. Current Visit: Yes Status: Acute Priority: Medium Procedures: Left TSA Patient Condition at Discharge: Good Plan - Discharge Summary Discharge Rx Participant: Yes New Discharge Prescriptions: New Doxycycline Hyclate 100 mg PO BID #10 tab HYDROcodone/APAP 7.5-325MG [[place] 7.5-325] 1 - 2 each PO Q6HR PRN #42 tab PRN Reason: Pain Docusate [Colace] 100 mg PO BID #60 capsule No Action Citalopram Hydrobromide [CeleXA] 40 mg PO HS Omeprazole [PriLOSEC] 40 mg PO BID lisinopriL [Zestril] 10 mg PO QAM Acetaminophen [Tylenol] 1,000 mg PO Q6H PRN PRN Reason: Pain Aspirin [Adult Low Dose Aspirin EC] 81 mg PO DAILY Discharge Medication List Citalopram Hydrobromide [CeleXA] 40 mg PO HS 01/24/16 [History] Omeprazole [PriLOSEC] 40 mg PO BID 02/29/20 [History] Acetaminophen [Tylenol] 1,000 mg PO Q6H PRN 07/09/21 [History] Aspirin [Adult Low Dose Aspirin EC] 81 mg PO DAILY 07/09/21 [History] lisinopriL [Zestril] 10 mg PO QAM 07/09/21 [History] Docusate [Colace] 100 mg PO BID #60 capsule 07/12/21 [Rx] Doxycycline Hyclate 100 mg PO BID #10 tab 07/12/21 [Rx] HYDROcodone/APAP 7.5-325MG [[place] 7.5-325] 1 - 2 each PO Q6HR PRN #42 tab 07/12/21 [Rx] Follow up Appointment(s)/Referral(s): Vamshi Bledsoe MD [Primary Care Provider] - 07/25/21 11:20 am Salvador Mcclendon MD [STAFF PHYSICIAN] - 07/24/21 9:05 am Patient Instructions/Handouts: *Surgery [facility] - Shoulder Arthroscopy Activity/Diet/Wound Care/Special Instructions: keep wound clean and dry take meds as directed f/u Dr. Mcclendon in office maintain sling may shower in 3 days if no bleeding Discharge Disposition: HOME WITH HOME HEALTH SERVICES
[2021-07-12 13:40] VITALS: BP 107/65; PULSE 84; TEMP 98.6
--- NOTE | 2021-07-12 20:01 | P.PN ---
Subjective Progress Note Date: 07/12/21 Patient is a 71-year-old female with a history of obstructive sleep apnea with CPAP use, GERD with Sosa's esophagus, and hypertension who presented for elective left total shoulder arthroplasty. She underwent the procedure without any immediate postoperative complications. Seen and examined at bedside. Pain is well controlled. No nausea or vomiting. No lightheadedness. Feels ready to go home. General: non toxic, no distress, appears at stated age Derm: warm, dry Head: atraumatic, normocephalic, symmetric Eyes: EOMI, no lid lag, anicteric sclera Mouth: no lip lesion, mucus membranes moist Cardiovascular: S1S2 reg, no murmur, positive posterior tibial pulse bilateral, Lungs: CTA bilateral, no rhonchi, no rales , no accessory muscle use Abdominal: soft, nontender to palpation, no guarding, no appreciable organomegaly Ext: no gross muscle atrophy, no edema, no contractures left shoulder in sling Neuro: CN II-XI grossly intact, no focal neuro deficits Psych: Alert, oriented, appropriate affect Patient is a 71-year-old female status post left shoulder arthroplasty Hypertension -Continue lisinopril on discharge -Follow blood pressures SHANKAR -CPAP GERD/Sosa's esophagus -PPI twice a day Obesity with BMI 44.2 -Outpatient structured weight loss Patient medically optimized for discharge Thank you for allowing us to participate in the care of this pleasant patient. Do not hesitate to contact us with questions. Someone can be reached from the [facility] hospitalist group all hours of the day at [phone] or via [employer]. Objective - Vital Signs Vital signs: Vital Signs Temp 97.9 F 07/12/21 08:00 Pulse 69 07/12/21 08:00 Resp 16 07/12/21 08:00 BP 135/74 07/12/21 08:00 Pulse Ox 94 L 07/12/21 08:00 Intake & Output 07/11/21 07/12/21 07/12/21 18:59 06:59 18:59 Intake Total 876 236 Output Total 200 80 Balance 676 -80 236 Weight 109.7 kg Intake: IV 876 Oral 236 Output: Drainage 50 80 Left Shoulder 50 80 Estimated Blood Loss 150 Other: Voiding Method Toilet Toilet # Voids 1 2 - Labs CBC & Chem 7: 07/12/21 05:14 Labs: Abnormal Lab Results - Last 24 Hours (Table) 07/12/21 Range/Units 05:14 RBC 3.95 L (4.10-5.20) X 10*6/uL Hgb 11.7 L (12.0-15.0) g/dL Hct 36.2 L (37.2-46.3) % MPV 9.4 L (9.5-12.2) fL Immature Gran # 0.07 H (0.00-0.04) X 10*3/uL Eosinophils # 0 L (0.04-0.35) X 10*3/uL
== END 2021-07-12 14:38 | disposition home health service (06) ==
LOC: OR 06:38 → 4SSUR 10:28 → OR 07-12 14:38
PROVIDERS: ATTEND Orthopaedic Surgery Sports Medicine
DX: M19.012 Primary osteoarthritis, left shoulder (principal); K21.9 Gastro-esophageal reflux disease without esophagitis; K22.70 Barrett's esophagus without dysplasia; Z68.41 Body mass index [BMI] 40.0-44.9, adult; Z79.82 Long term (current) use of aspirin; Z82.49 Family history of ischemic heart disease and other diseases of the circulatory system; Z87.19 Personal history of other diseases of the digestive system; I10 Essential (primary) hypertension; G47.33 Obstructive sleep apnea (adult) (pediatric); Z90.49 Acquired absence of other specified parts of digestive tract; E66.9 Obesity, unspecified; Z20.822 Contact with and (suspected) exposure to COVID-19
CPT/HCPCS: 23472; 64415; 76942; 85025; 88300; 87635; 73020; C1776; J2250; J3370; J1100; J0690 ×2; J2405 ×2; J1170

== ENCOUNTER → 2023-01-15 | Outpatient (CLI) | payer MEDICARE ==
--- NOTE | 2023-01-15 11:24 | P.SLEEP ---
History of Present Illness DATE: 01/15/2023 CONSULTATION/NEW PATIENT EVALUATION HISTORY OF PRESENT ILLNESS/SLEEP-WAKE EVALUATION: 72-year-old lady had been ev aluated in the sleep center for obstructive sleep apnea hypopnea syndrome. Last time I so patient in January 2019. Patient continued to use her CPAP equipment every night SLEEP SCHEDULE: Usually sleep schedule from 11 PM to 7 AM 7 days a week. FALLING ASLEEP: Sometimes patient has problems with falling asleep. DURING SLEEP: Patient continued to use sure CPAP equipment every night, no snoring with CPAP. Patient is able to sleep through the night without awakenings. No history of hypnogogical hallucinations, sleep paralysis, or cataplexy. DURING THE DAY/WAKE STATE: Sometimes patient wake up in the morning tired. [place] sleepiness scale is borderline 9. Patient may take 1 nap afternoon. PAST MEDICAL HISTORY: Hypertension, history of depression, acid reflux, history of sinusitis, COVID-19. PAST SURGICAL HISTORY: Bilateral hip replacement, left shoulder replacement, a UPPP and tonsillectomy. MEDICATIONS: Lisinopril, Celexa, omeprazole. SOCIAL HISTORY: Negative for smoking or using alcohol. FAMILY HISTORY: Stroke, restless legs. REVIEW OF SYSTEMS: Occasional tiredness and sleepiness during the day. No fevers. No double vision. No recent chest pain. No shortness of breath. No abdominal pain. No bleeding episodes. No blood in urine. No seizure episodes. PHYSICAL EXAMINATION: GENERAL: A pleasant patient without any distress. VITAL SIGNS: BP 120/73, HR 68, RR 12, weight 235.2 pounds, height 5 foot 1 inches, body mass index 44.4. HEENT: PERRLA, EOMI. Evaluation of oropharynx showed tongue protrudes midline, low position of soft palate Mallampati 4. NECK: Supple. No JVD. Thyroid is not palpable. 16.5 inches in circumference. LUNGS: Clear to percussion and to auscultation. Good air exchange. No wheezing or rhonchi. HEART: S1, S2 regular. No murmurs, gallops or rubs. ABDOMEN: Soft and nontender. Bowel sounds are present. No organomegaly appreciated. Obese. EXTREMITIES: No clubbing or cyanosis. CHEMICAL BLENDER: Awake, alert, and oriented x3. Cranial nerves 2 to 7 intact. There is no fasciculation or atrophy noted. No focal deficits observed. I checked CPAP unit range of the pressure 9-14, usage 100% of nights, average 9.5 hours per night, leak 10 L/m which is normal. Apnea-hypopnea index is 2.7 which is normal. ASSESSMENT: 1. Obstructive sleep apnea hypopnea syndrome, patient continued to use sure CPAP equipment every night, 100% compliance, normal respiration on CPAP. 2. Hypertension. 3. History of depression. 4. History of sinuses problems. 5 status post COVID-19. 6 . Status post bilateral hip replacement in . 7. Status post left shoulder replacement in 2020. 8. Status post UPPP and tonsillectomy. 9 . Obesity, body mass index 44.4, patient lost 9 pounds since previous visit 4 years ago. PLAN: 1. Patient will continue to use CPAP equipment every night for the whole night. 2. Prescription was written for all necessary supplies including mask, tube, filters, chamber for humidifier. 3. Preferable position during sleep on the side. 4. No driving if patient feels any sleepiness. Patient is aware of civil and criminal liability for unsafe driving. 5. Sleep hygiene with regular sleep time for at least 7.5-8 hours. 6. Watching and losing weight. 7. Follow-up visit in 6 months or earlier if patient has any problems. Thank you very much for allowing me to participate in management of your patien t. Sincerely, Jose Hoffmann MD, PhD, FAASM. Diplomat of [employer], Sleep Medicine Board by [employer] [facility] [place] Past Medical History Past Medical History: GERD/Reflux, Hypertension, Osteoarthritis (OA), Sleep Apnea/CPAP/BIPAP Additional Past Medical History / Comment(s): barretts esophagus, hiatal hernia, "sciatica like pain" History of Any Multi-Drug Resistant Organisms: None Reported Past Surgical History: Breast Surgery, Cholecystectomy, Joint Replacement, Orthopedic Surgery, Tonsillectomy Additional Past Surgical History / Comment(s): ORIF-left wrist now has a plate, left breast biopsy, surgery to laser uvula for sleep apnea, arthroscopy left shoulder, LT JULIANO-08/2019, Past Anesthesia/Blood Transfusion Reactions: Motion Sickness Additional Past Anesthesia/Blood Transfusion Reaction / Comment(s): "rare motrion sickness", Past Psychological History: Anxiety, Depression Past Alcohol Use History: None Reported Past Drug Use History: None Reported - Past Family History Mother Family Medical History: No Reported History Additional Family Medical History / Comment(s): Maternal grandma had bowel cancer. Father Family Medical History: Coronary Artery Disease (CAD) Medications and Allergies Home Medications Medication Instructions Recorded Confirmed Type Citalopram Hydrobromide [CeleXA] 40 mg PO HS 01/24/16 07/09/21 History Omeprazole [PriLOSEC] 40 mg PO BID 02/29/20 07/09/21 History Aspirin [Adult Low Dose Aspirin EC] 81 mg PO DAILY 07/09/21 07/09/21 History lisinopriL [Zestril] 10 mg PO QAM 07/09/21 07/09/21 History Docusate [Colace] 100 mg PO BID #60 capsule 07/12/21 Rx Doxycycline Hyclate 100 mg PO BID #10 tab 07/12/21 Rx HYDROcodone/APAP 7.5-325MG [[place] 1 - 2 each PO Q6HR PRN #42 tab 07/12/21 Rx 7.5-325] Allergies Allergy/AdvReac Type Severity Reaction Status Date / Time No Known Allergies Allergy Verified 07/09/21 13:39 Sleep Note - Sleep Note Sleep Note: Temperature: Pulse Rate: Respiratory Rate: Blood Pressure: SpO2: Height: Weight: BMI: Neck Circumference:
== END ==
LOC: 3 N SLEEP 10:33
PROVIDERS: ATTEND Internal Medicine
DX: G47.33 Obstructive sleep apnea (adult) (pediatric) (principal); Z99.89 Dependence on other enabling machines and devices; I10 Essential (primary) hypertension; F32.A Depression, unspecified; J32.9 Chronic sinusitis, unspecified; Z96.641 Presence of right artificial hip joint; Z96.642 Presence of left artificial hip joint; Z98.890 Other specified postprocedural states; E66.9 Obesity, unspecified; Z96.612 Presence of left artificial shoulder joint; Z68.41 Body mass index [BMI] 40.0-44.9, adult; Z79.899 Other long term (current) drug therapy; U07.1 COVID-19
CPT/HCPCS: 99212

== ENCOUNTER → 2024-03-30 | Outpatient (CLI) | payer MEDICARE ==
[2024-03-30 19:16] LABS: Basophils # (A) 0.04 X 10*3/uL (0.00-0.10); Basophils % (A) 0.5 %; Eosinophils # (A) 0.06 X 10*3/uL (0.04-0.35); Eosinophils % (A) 0.7 %; HCT 39.8 % (37.2-50.0); HGB 13.7 g/dL (12.0-17.0); Lymphocytes # (A) 1.65 X 10*3/uL (0.90-5.00); Lymphocytes % (A) 19.2 %; MCH 30.6 pg (27.0-32.0); MCHC 34.4 g/dL (32.0-37.0); Mean Platelet Volume 9.6 FL (9.5-12.2); Monocytes % (A) 5.8 %; NRBC Per 100 WBC 0 X 10*3/uL (0.00-0.01); Neutrophils # (A) 6.32 X 10*3/uL (1.80-7.70); Neutrophils % (A) 73.5 %; Platelet Count 236 X 10*3/uL (140-440); RBC 4.47 X 10*6/uL (4.10-5.60); RDW 12.7 % (11.5-14.5)
[2024-03-30 19:54] LABS: Erythrocyte Sedimentation Rate 24 mm/Hr (0-30)
== END | disposition home or self-care (01) ==
LOC: LABWHC1 14:16
PROVIDERS: ATTEND Orthopaedic Surgery
DX: Z09 Encounter for follow-up examination after completed treatment for conditions other than malignant neoplasm (principal); M67.854 Other specified disorders of tendon, left hip; Z96.642 Presence of left artificial hip joint
CPT/HCPCS: 36415; 85025; 85652; 86140